=== PATIENT | female | born 1960 ===

== ENCOUNTER 2022-02-05 16:04 | Inpatient (IN) | payer OTHER ==
--- NOTE | 2022-02-05 17:31 | ED ---
Psych HPI - General Chief Complaint: Psychiatric Symptoms Stated Complaint: Mental Health Time Seen by Provider: 02/05/22 17:16 Source: patient Mode of arrival: ambulatory - History of Present Illness Initial Comments: This 61-year-old female presents with complaints of having some auditory and visual hallucinations over the past week. She states that she started 2 new medications of Zoloft and trazodone 2 weeks ago. She also states that she feels weak and has a shuffling gait. She feels confused mentally at times. She's never been on Zoloft but has been on trazodone in the past. She states that it feels like her legs will give out at times as well. She apparently had a similar incident a couple of years ago and was hospitalized psychiatrically in [place] and her symptoms resolved. She states that she cannot work currently due to her symptomatology. Her states that he is very worried about leaving her at home and wants her checked out psychiatrically. She denies any fevers, chills, shortness breath, chest pain, or abdominal pain. She does have a history of bipolar disorder, depression, anxiety. No other complaints or modifying factors. She denies any alcohol use. She does utilize marijuana at times but denies any other drug use. She does state that she feels very shaky and weak to the point where she has fallen several times. She also complains of some pain in her her bilateral flanks but denies any injury to this area. She denies any urinary frequency, urgency, or dysuria. - Related Data Home Medications Medication Instructions Recorded Confirmed Divalproex Sodium [Divalproex 1,000 mg PO HS 02/05/22 02/05/22 Sodium ER] Divalproex Sodium [Divalproex 500 mg PO DAILY 02/05/22 02/05/22 Sodium ER] Escitalopram [Lexapro] 5 mg PO DAILY 02/05/22 02/05/22 Gabapentin 800 mg PO BID 02/05/22 02/05/22 Levothyroxine Sodium 150 mcg PO DAILY 02/05/22 02/05/22 OLANZapine ODT [ZyPREXA ZYDIS] 5 mg PO BID 02/05/22 02/05/22 QUEtiapine [SEROquel] 400 mg PO DIRECTED 02/05/22 02/05/22 traZODone HCL [Desyrel] 100 mg PO HS 02/05/22 02/05/22 Allergies Allergy/AdvReac Type Severity Reaction Status Date / Time No Known Allergies Allergy Verified 02/05/22 19:15 Review of Systems ROS Statement: Those systems with pertinent positive or pertinent negative responses have been documented in the HPI. ROS Other: All systems not noted in ROS Statement are negative. Past Medical History Past Medical History: Myocardial Infarction ([place]), Thyroid Disorder History of Any Multi-Drug Resistant Organisms: None Reported Past Surgical History: Back Surgery, Heart Catheterization With Stent Past Psychological History: Anxiety, Bipolar, Depression Smoking Status: Current every day smoker Past Alcohol Use History: None Reported Past Drug Use History: Marijuana General Exam - General Exam Comments Initial Comments: GENERAL: The patient is well nourished and well hydrated. VITAL SIGNS: Heart rate, blood pressure, respiratory rate reviewed as recorded in nurse's notes. EYES: Pupils are round and reactive. Extraocular movements are intact. No conjunctival / lid redness or swelling. ENT: No external evidence of injury, swelling, or ecchymosis. Airway is patent. Throat is clear. NECK: Nontender. No swelling or evidence of injury. No subcutaneous emphysema. Trachea is midline. No thyroid mass. HEART: Regular rate and rhythm. Good peripheral pulses. LUNGS/CHEST: Breath sounds clear and equal bilaterally. No rales, rhonchi, or wheezes. No ecchymosis, subcutaneous emphysema, or tenderness. ABDOMEN: Abdomen soft without tenderness. No palpable masses or organomegaly. No peritoneal signs. No abdominal wall swelling or ecchymosis. EXTREMITIES: No extremity tenderness. Normal muscle tone and function. No thoracolumbar tenderness. NEUROLOGIC: Sensation is grossly intact. Cranial nerve exam reveals face is symmetrical, tongue is midline, speech is clear. Mild tremor noted bilateral upper extremities. Ambulatory with shuffle gait. SKIN: No abrasions or ecchymosis is noted. No induration or masses noted. PSYCHIATRIC: Alert and oriented. Appropriate behavior and judgment. Limitations: no limitations Course Vital Signs 02/05/22 16:37 Temperature 98.1 F Pulse Rate 68 Respiratory 16 Rate Blood Pressure 103/57 O2 Sat by Pulse 96 Oximetry Medical Decision Making - Medical Decision Making The patient was seen and examined. All diagnostics are reviewed. IV is estab lished and patient is hydrated. Urinalysis does show evidence of infection. Laboratories otherwise essentially within normal limits. IV Rocephin is administered. His not felt as though patient is medically cleared for psyche she does have urinary infection. She is also having some flank pain and the possibility of pyelonephritis is plausible. It is felt as though she benefit from IV antibiotics and hydration and see if her symptomatology doesn't improve. Patient and are agreeable with this plan. Case is discussed with Dr. Cook from internal medicine and he is agreeable with admission with psych to consult. Patient also was given Toradol for pain. - Lab Data Result diagrams: 02/05/22 17:47 02/05/22 17:47 Lab Results 02/05/22 02/05/22 02/05/22 Range/Units 17:47 17:47 17:47 WBC 6.7 (3.8-10.6) k/uL RBC 4.31 (3.80-5.40) m/uL Hgb 14.2 (11.4-16.0) gm/dL Hct 41.8 (34.0-46.0) % MCV 97.2 (80.0-100.0) fL MCH 33.1 (25.0-35.0) pg MCHC 34.1 (31.0-37.0) g/dL RDW 14.1 (11.5-15.5) % Plt Count 156 (150-450) k/uL MPV 9.1 Neutrophils % 53 % Lymphocytes % 31 % Monocytes % 13 % Eosinophils % 2 % Basophils % 0 % Neutrophils # 3.6 (1.3-7.7) k/uL Lymphocytes # 2.1 (1.0-4.8) k/uL Monocytes # 0.8 (0-1.0) k/uL Eosinophils # 0.1 (0-0.7) k/uL Basophils # 0.0 (0-0.2) k/uL Manual Slide Review Performed RBC Morphology Normal Sodium 134 L (137-145) mmol/L Potassium 4.5 (3.5-5.1) mmol/L Chloride 99 (98-107) mmol/L Carbon Dioxide 26 (22-30) mmol/L Anion Gap 9 mmol/L BUN 12 (7-17) mg/dL Creatinine 0.63 (0.52-1.04) mg/dL Est GFR (CKD-EPI)AfAm >90 (>60 ml/min/1.73 sqM) Est GFR (CKD-EPI)NonAf >90 (>60 ml/min/1.73 sqM) Glucose 91 (74-99) mg/dL Calcium 8.7 (8.4-10.2) mg/dL Total Bilirubin 0.9 (0.2-1.3) mg/dL AST 57 H (14-36) U/L ALT 18 (4-34) U/L Alkaline Phosphatase 45 (38-126) U/L Total Protein 6.7 (6.3-8.2) g/dL Albumin 4.0 (3.5-5.0) g/dL Urine Color Yellow Urine Appearance Clear (Clear) Urine pH 6.5 (5.0-8.0) Ur Specific [place] 1.020 (1.001-1.035) Urine Protein Trace H (Negative) Urine Glucose (UA) Negative (Negative) Urine Ketones 1+ H (Negative) Urine Blood Small H (Negative) Urine Nitrite Negative (Negative) Urine Bilirubin Negative (Negative) Urine Urobilinogen 3.0 (<2.0) mg/dL Ur Leukocyte Esterase Large H (Negative) Urine RBC 6 H (0-5) /hpf Urine WBC 41 H (0-5) /hpf Ur Squamous Epith Cells 1 (0-4) /hpf Ur Transition Epith Cell <1 (0-1) /hpf Urine Bacteria Rare H (None) /hpf Hyaline Casts 4 H (0-2) /lpf Urine Mucus Rare H (None) /hpf Serum Alcohol <10 mg/dL Disposition Clinical Impression: Urinary tract infection, Pyelonephritis, Hallucinations, History of bipolar disorder, Weakness Disposition: ADMITTED IP TO THIS HOSP Condition: Fair Is patient prescribed a controlled substance at d/c from ED?: No Time of Disposition: 19:48 Decision Date: 02/05/22 Decision Time: 19:53
[2022-02-05 18:22] LABS: Basophils % (A) 0 %; Eosinophils # (A) 0.1 k/uL (0-0.7); Eosinophils % (A) 2 %; HCT 41.8 % (34.0-46.0); HGB 14.2 gm/dL (11.4-16.0); Lymphocytes # (A) 2.1 k/uL (1.0-4.8); Lymphocytes % (A) 31 %; MCH 33.1 pg (25.0-35.0); MCHC 34.1 g/dL (31.0-37.0); MCV 97.2 fL (80.0-100.0); Mean Platelet Volume 9.1; Monocytes # (A) 0.8 k/uL (0-1.0); Monocytes % (A) 13 %; Neutrophils # (A) 3.6 k/uL (1.3-7.7); Neutrophils % (A) 53 %; RBC 4.31 m/uL (3.80-5.40); RDW 14.1 % (11.5-15.5); WBC 6.7 k/uL (3.8-10.6)
[2022-02-05 18:37] LABS: Appearance,Urine Clear (Clear); Bacteria,Urine Rare /hpf; Bilirubin,Urine Negative (Negative); Blood,Urine Small (Negative); Color,Urine Yellow; Glucose,Urine (UA) Negative (Negative); Hyaline Casts,Urine 4 /lpf (0-2); Ketones,Urine 1+ (Negative); Leukocyte Esterase,Urine Large (Negative); Mucus,Urine Rare /hpf; Nitrite,Urine Negative (Negative); PH, Urine 6.5 (5.0-8.0); Protein,Urine Trace (Negative); RBC,Urine 6 /hpf (0-5); Squamous Epithelial Cell,Urine 1 /hpf (0-4); Transitional Epi Cells,Urine <1 /hpf (0-1); WBC,Urine 41 /hpf (0-5)
[2022-02-05 18:46] LABS: ALT 18 U/L (4-34); AST 57 U/L (14-36); African American GFR (CKD) >90 (>60 ml/min/1.73 sqM); Alcohol <10 mg/dL; Alkaline Phosphatase 45 U/L (38-126); Anion Gap 9 mmol/L; Blood Urea Nitrogen 12 mg/dL (7-17); Calcium 8.7 mg/dL (8.4-10.2); Carbon Dioxide 26 mmol/L (22-30); Chloride 99 mmol/L (98-107); Glucose 91 mg/dL (74-99); Non-African American GFR(CKD) >90 (>60 ml/min/1.73 sqM); Sodium 134 mmol/L (137-145); Total Bilirubin 0.9 mg/dL (0.2-1.3); Total Protein 6.7 g/dL (6.3-8.2)
[2022-02-05 18:47] LABS: Potassium 4.5 mmol/L (3.5-5.1)
[2022-02-05 19:02] LABS: Platelet Count 156 k/uL (150-450)
[2022-02-05 19:03] LABS: RBC Morphology Normal
[2022-02-05] MEDS ORDERED: SODIUM CHLORIDE 0.9% 1,000 ML IV STA ×2 (19:41)
[2022-02-05] MEDS ORDERED: KETOROLAC 15 MG/ML 1 ML VIAL IVP STA (19:47)
[2022-02-05] MEDS ORDERED: MORPHINE SULFATE 2 MG/ML SYRINGE IV PRN (19:53)
[2022-02-05] MEDS ORDERED: NALOXONE 0.4 MG/ML 1 ML VIAL IV PRN (19:53)
[2022-02-05] MEDS ORDERED: ONDANSETRON 4 MG/2 ML VIAL IVP PRN (19:53)
[2022-02-05] MEDS ORDERED: QUEtiapine 400 MG TAB PO SCH (20:00)
[2022-02-05 20:14] LABS: Amphetamine Screen,Urine Not Detected (NotDetected); Barbiturate Screen,Urine Not Detected (NotDetected); Benzodiazepines Screen,Urine Not Detected (NotDetected); Cocaine Screen,Urine Not Detected (NotDetected); Methadone Screen, Urine Not Detected (NotDetected); Opiate Screen,Urine Not Detected (NotDetected); Oxycodone Screen, Urine Not Detected (NotDetected); Phencyclidine Screen,Urine Not Detected (NotDetected); Tricyclic Antidepressant,Urine Not Detected (NotDetected); Urn Cannabinoid Scrn Detected (NotDetected)
[2022-02-05] MEDS: GABAPENTIN 400 MG CAP PO SCH (22:32)
[2022-02-06] MEDS: DIVALPROEX ER 500 MG TAB.ER.24H PO SCH ×2 (08:09→20:44)
[2022-02-06] MEDS: traZODone HCL 100 MG TAB PO SCH ×2 (08:11→20:43)
[2022-02-06] MEDS: OLANZapine ODT 5 MG TAB PO SCH ×3 (08:11→20:43)
[2022-02-06] MEDS: HEPARIN SODIUM,PORCINE/PF 5,000 UNIT/0.5 ML SYRINGE SQ SCH ×2 (08:26→20:44)
[2022-02-06] MEDS: GABAPENTIN 400 MG CAP PO SCH ×2 (08:26→20:43)
[2022-02-06] MEDS: LEVOTHYROXINE 75 MCG TAB PO SCH (08:26)
[2022-02-06] MEDS: PANTOPRAZOLE 40 MG TABLET PO SCH (08:27)
[2022-02-06] MEDS: ACETAMINOPHEN TAB 325 MG TAB PO PRN (08:27)
[2022-02-06] MEDS ORDERED: ENOXAPARIN 40 MG/0.4 ML SYRINGE SQ SCH (09:00)
[2022-02-06] MEDS ORDERED: DIVALPROEX ER 500 MG TAB.ER.24H PO SCH (09:00)
[2022-02-06] MEDS ORDERED: ESCITALOPRAM 5 MG TAB PO SCH (09:00)
--- NOTE | 2022-02-06 09:03 | US ---
EXAMINATION TYPE: US renals and bladder DATE OF EXAM: 02/06/2022 COMPARISON: NONE CLINICAL HISTORY: Flank pain, suspected UTI. Inpatient. EXAM MEASUREMENTS: Right Kidney: 9.7 x 4.3 x 4.3 cm Left Kidney: 9.1 x 4.1 x 5.1 cm Right Kidney: No hydronephrosis or masses seen Left Kidney: No hydronephrosis or masses seen Bladder: Nondistended Bilateral Jets not seen There is no evidence for hydronephrosis at this point in time. No nephrolithiasis is seen. No shree s are identified on images saved. The urinary bladder is not greatly distended. Bilateral ureteral jets are not seen. IMPRESSION: No hydronephrosis seen bilaterally.
--- NOTE | 2022-02-06 09:17 | P.HPIM ---
History of Present Illness This is a pleasant 61 years old female with past medical history of anxiety, bipolar, coronary artery disease status post stent, nicotine dependence Presents because of visual and auditory hallucinations, she was recently prescribed Zoloft and trazodone Patient presents because she was feeling shaky, losing her mind and fell at home yesterday without syncope and no reported trauma or head injury, she got up right away and worked fine. In the emergency room she was suspected to have UTI, she was complaining of from flank pain She denies any dysuria or urgency or discomfort but she complains from diarrhea twice a day for the last couple days, no abdominal pain or vomiting. No current headache or dizziness, no weakness or numbness. No chest pain or dyspnea or coughing. She wants to see her PCP Nevaeh Nagy about 2 weeks ago and asked her to change her Seroquel and to something else, she put her on Zoloft and after a week she started feeling better, currently she is only on Zoloft. She smokes about 1 pack per day and she was counseled to quit and she agrees but she declines nicotine patch. 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 HEENT: No recent visual problems or hearing problems. Denied any sore throat. CARDIOVASCULAR: No orthopnea, PND, no palpitations, no syncope. PULMONARY: No shortness of breath, no cough, no hemoptysis. GASTROINTESTINAL: No diarrhea, no nausea, no vomiting, no abdominal pain. Normoactive bowel sounds. NEUROLOGICAL: No headaches, no weakness, no numbness. HEMATOLOGICAL: Denies any bleeding or petechiae. GENITOURINARY: Denies any burning micturition, frequency, or urgency. MUSCULOSKELETAL/RHEUMATOLOGICAL: Denies any joint pain, swelling, or any muscle pain. ENDOCRINE: Denies any polyuria or polydipsia. Past Medical History Past Medical History: Myocardial Infarction ([place]), Thyroid Disorder History of Any Multi-Drug Resistant Organisms: None Reported Past Surgical History: Back Surgery, Heart Catheterization With Stent Past Psychological History: Anxiety, Bipolar, Depression Smoking Status: Current every day smoker Past Alcohol Use History: None Reported Past Drug Use History: Marijuana Medications and Allergies Home Medications Medication Instructions Recorded Confirmed Type Divalproex Sodium [Divalproex 1,000 mg PO HS 02/05/22 02/05/22 History Sodium ER] Divalproex Sodium [Divalproex 500 mg PO DAILY 02/05/22 02/05/22 History Sodium ER] Escitalopram [Lexapro] 5 mg PO DAILY 02/05/22 02/05/22 History Gabapentin 800 mg PO BID 02/05/22 02/05/22 History Levothyroxine Sodium 150 mcg PO DAILY 02/05/22 02/05/22 History OLANZapine ODT [ZyPREXA ZYDIS] 5 mg PO BID 02/05/22 02/05/22 History QUEtiapine [SEROquel] 400 mg PO DIRECTED 02/05/22 02/05/22 History traZODone HCL [Desyrel] 100 mg PO HS 02/05/22 02/05/22 History Allergies Allergy/AdvReac Type Severity Reaction Status Date / Time No Known Allergies Allergy Verified 02/05/22 19:15 Physical Exam Vitals: Vital Signs Temp Pulse Resp BP Pulse Ox 02/05/22 16:37 98.1 F 68 16 103/57 96 Intake and Output 02/05/22 02/05/22 02/06/22 14:59 22:59 06:59 Other: Weight 81.647 kg GENERAL: The patient is alert and oriented x3, not in any acute distress. Well developed, well nourished. HEENT: Pupils are round and equally reacting to light. EOMI. No scleral icterus. No conjunctival pallor. Normocephalic, atraumatic. No pharyngeal erythema. No thyromegaly. CARDIOVASCULAR: S1 and S2 present. No murmurs, rubs, or gallops. PULMONARY: Chest is clear to auscultation, no wheezing or crackles. ABDOMEN: Soft, nontender, nondistended, normoactive bowel sounds. No palpable organomegaly. MUSCULOSKELETAL: No joint swelling or deformity. EXTREMITIES: No cyanosis, clubbing, or pedal edema. NEUROLOGICAL: Gross neurological examination did not reveal any focal deficits. SKIN: No rashes. no petechiae. Results CBC & Chem 7: 02/05/22 17:47 02/05/22 17:47 Labs: Abnormal Lab Results - Last 24 Hours (Table) 02/05/22 02/05/22 Range/Units 17:47 17:47 Sodium 134 L (137-145) mmol/L AST 57 H (14-36) U/L Urine Protein Trace H (Negative) Urine Ketones 1+ H (Negative) Urine Blood Small H (Negative) Ur Leukocyte Esterase Large H (Negative) Urine RBC 6 H (0-5) /hpf Urine WBC 41 H (0-5) /hpf Urine Bacteria Rare H (None) /hpf Hyaline Casts 4 H (0-2) /lpf Urine Mucus Rare H (None) /hpf U Marijuana (THC) Screen Detected H (NotDetected) Assessment and Plan Assessment: Possible acute urinary tract infection, with flank pain Visual and auditory hallucinations in view of psych on this History of coronary artery disease Nicotine dependence Plan: This pleasant 61 years old female who presents with UTI and hallucinations Continue with ceftriaxone follow-up urine culture. Repeat urine analysis as the suspicion for UTI is not that strong as patient is asymptomatic with no fever or leukocytosis. Bladder scan is only 30 mL and renal ultrasound is negative Psych consult Labs and medication were reviewed.. Continue same treatment. Continue with symptomatic treatment. Resume home medication. Monitor lytes and vitals. DVT and GI prophylaxis. Further recommendations as per clinical course of the patient DVT prophylaxis: Subcutaneous heparin GI Prophylaxis: pi PT/OT: Pending
[2022-02-06 10:47] LABS: Appearance,Urine Clear (Clear); Bilirubin,Urine Negative (Negative); Blood,Urine Moderate (Negative); Color,Urine Yellow; Glucose,Urine (UA) Negative (Negative); Ketones,Urine Negative (Negative); Leukocyte Esterase,Urine Large (Negative); Mucus,Urine Rare /hpf; Nitrite,Urine Negative (Negative); PH, Urine 6.5 (5.0-8.0); Protein,Urine Trace (Negative); RBC,Urine 6 /hpf (0-5); Specific Gravity,Urine 1.014 (1.001-1.035); Squamous Epithelial Cell,Urine <1 /hpf (0-4); WBC,Urine 77 /hpf (0-5)
--- NOTE | 2022-02-06 14:25 | P.CN ---
Psychiatric Consult - . Consult date: 02/06/22 Consult:: 02/06/22 14:25 IDENTIFYING DATA: This patient is a , employed, 21-year-old female with a significant history of bipolar disorder and anxiety who presented to the hospital on 02/05/2022 with chief complaint of auditory and visual hallucinations. HISTORY OF PRESENT ILLNESS: The patient presented to the hospital on 02/05/2022 with a chief complaint of auditory and visual hallucinations. The patient reports that these hallucinations started over the last 2 weeks. 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 She reports that these auditory hallucinations are very brief and occur randomly throughout the day. She states that she would hear in occasional whisper however denies any command type hallucinations or persecutory hallucinations. She reports that the visual hallucinations when the form of flashing lights however has not expressed any auditory or visual hallucinations over the last 24 hours. In regards to mood symptoms, patient reports that she was receiving 5 hours of sleep per night over the last 2 weeks. She denies any racing thoughts, mood lability, or grandiosity. She is currently vehemently denying any suicidal or homicidal ideation, intention, and/or plan. She denies any issues regarding her appetite and denies any anhedonia, hopelessness, or helplessness. The patient reports that she was on a regimen of Depakote, Lexapro, Seroquel, trazodone, and Zyprexa. She states that she was undergoing some medication changes. The patient does report that she has been having some difficulty with memory. Currently, she is alert and oriented to person and place only. She mistakenly states that the year is 2006 and then later stated "2007, 2008," and was finally corrected and informed that it is 2021. Although the patient did test positive for urinary tract infection, she denies any dysuria, discharge. PAST PSYCHIATRIC HISTORY: Patient has a history of bipolar disorder. Patient's home medication regimen includes Depakote, Lexapro, gabapentin, Zyprexa, Seroquel, and trazodone. She reports a previous psychiatric hospitalization years ago. She denies any outpatient psychiatric follow-up. She reports that she follows up with a neurologist. Patient denies any history of suicide attempts in the past. PAST MEDICAL HISTORY: Past Medical History: Myocardial Infarction ([place]), Thyroid Disorder History of Any Multi-Drug Resistant Organisms: None Reported Past Surgical History: Back Surgery, Heart Catheterization With Stent Past Psychological History: Anxiety, Bipolar, Depression Smoking Status: Current every day smoker Past Alcohol Use History: None Reported Past Drug Use History: Marijuana ALLERGIES: NO KNOWN DRUG ALLERGIES CHEMICAL DEPENDENCY HISTORY: Patient reports occasional marijuana use. She reports 1 pack per day tobacco use. She reports no alcohol use or illicit drug use. FAMILY PSYCHIATRIC/SUBSTANCE USE HISTORY: Denies SOCIAL HISTORY: Patient is currently and is employed. 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 MENTAL STATUS EXAM: General Appearance: Patient appears to be stated age is alert, pleasant, and cooperative. Patient appears to have a slightly disheveled hygiene and grooming wearing hospital gown with fair eye contact. Behavior: Patient is calmly lying in bed without any agitated behavior. Speech: Patient's speech is fluent and nonpressured. The patient does have some word finding difficulties. Mood/Affect: Patient reports their mood is "a little anxious", affect is congruent and nervous Suicidality/Homicidality: Patient denies any suicidal or homicidal ideation, intention, and/or plan. Perceptions: Patient reports auditory and visual hallucinations. Though content/process: There is no evidence of any delusional thought content and thought process is linear and goal-directed. Memory and concentration: AOX2 -she is not oriented to date, concentration appears to be grossly intact. Judgment and insight: poor IMPRESSIONS: Acute psychosis, likely secondary to urinary tract infection Bipolar disorder, unspecified Cannabis use disorder PLAN: -Continue your medical management -At this time patient DOES NOT meet criteria for inpatient psychiatric admission. The patient reports that her hallucinations have stopped over the last 24 hours. She is not presenting with imminent risk of harm to self or others. -Will order ammonia level -Delirium precautions recommended with patient including - avoiding use of narcotics and NECK FITTER sedatives, limit anticholinergic medications when possible, frequent re-orientation, minimize use of restraints, open window shades during the day and close them at night -Would recommend the following medication changes/additions: We will decrease Depakote to 1000 mg by mouth at bedtime as her Depakote level is slightly supratherapeutic Continue gabapentin 600 mg by mouth twice a day Discontinue Seroquel and Lexapro to decrease polypharmacy Continue Zyprexa 5 mg by mouth twice a day for acute psychosis -Will continue to follow along to monitor medication changes and to assess for any worsening psychotic or mood symptoms. 02/06/22 14:25
[2022-02-07] MEDS: LEVOTHYROXINE 75 MCG TAB PO SCH (06:08)
[2022-02-07] MEDS: PANTOPRAZOLE 40 MG TABLET PO SCH (08:26)
[2022-02-07] MEDS: HEPARIN SODIUM,PORCINE/PF 5,000 UNIT/0.5 ML SYRINGE SQ SCH ×2 (08:26→20:59)
[2022-02-07] MEDS: GABAPENTIN 400 MG CAP PO SCH ×2 (08:26→20:59)
[2022-02-07] MEDS: OLANZapine ODT 5 MG TAB PO SCH ×2 (08:26→20:59)
--- NOTE | 2022-02-07 13:37 | P.PN ---
Progress Note - Text Progress Note Date: 02/07/22 Interval History: Patient was seen resting in bed and was agreeable to speak with fha underwriter in her room. Currently, the patient is not reporting any suicidal or homicidal ideation, intention, and/or plan. She is denying any auditory or visual hallucinations. She reports no paranoia or other delusions. The patient has been adherent with her medications and is not reporting any significant side effects at this time. Today, she is alert and oriented in all spheres. She st ates that she has not experienced any hallucinations over the past 48 hours. She reports that she is feeling overall better. Mental Status Exam: General Appearance: Patient appears to be stated age is alert, directable, and cooperative. Behavior: Patient is calmly seated without any agitated behavior. Speech: Patient's speech is fluent and nonpressured. Mood/Affect: Mood is improving mildly, affect is congruent and euthymic Suicidality/Homicidality: Patient denies having any suicidal or homicidal ideation intent or plan. Perceptions: Patient denies any visual hallucinations and denies any auditory hallucinations Though content/process: There is no evidence of any delusional thought content and thought process is linear and goal-directed. Memory and concentration: AOX3, grossly intact for the purposes of this session Judgment and insight: Improved Vital Signs Temp 97.7 F 02/07/22 07:49 Pulse 54 L 02/07/22 08:00 Resp 18 02/07/22 08:00 BP 129/77 02/07/22 07:49 Pulse Ox 99 02/07/22 07:49 FiO2 Intake & Output 02/06/22 02/07/22 02/07/22 18:59 06:59 18:59 Intake Total 200 Balance 200 Weight 81.647 kg Intake: Intake, IV Titration 200 Amount Sodium Chloride 0.9% 1, 200 000 ml @ 100 mls/hr IV . Q10H STA Rx#:[id number] Other: Voiding Method Toilet Toilet # Voids 0 Laboratory Results - Last 24 Hours 02/06/22 15:02 Ammonia 10 Assessment Acute psychosis, likely secondary to urinary tract infection Bipolar disorder, unspecified Cannabis use disorder Plan: -Continue your medical management -At this time patient DOES NOT meet criteria for inpatient psychiatric admission. The patient is currently not reporting any overt paranoia or other delusions. She denies any psychotic symptoms today. She is not presenting with any imminent risk of harm to self or others. -Ammonia level reviewed and within normal limits -Delirium precautions recommended with patient including - avoiding use of narcotics and MDM SR sedatives, limit anticholinergic medications when possible, frequent re-orientation, minimize use of restraints, open window shades during the day and close them at night -Would recommend the following medication changes/additions: Continue Depakote 1000 mg by mouth at bedtime - Recheck of depakote level in 2 days. Continue gabapentin 600 mg by mouth twice a day Continue Zyprexa 5 mg by mouth twice a day for acute psychosis -Psychiatry will sign off at this time. Recommend outpatient psychiatric follow-up. Please call us with any questions or reconsult us if necessary.
[2022-02-07] MEDS: ACETAMINOPHEN TAB 325 MG TAB PO PRN (16:30)
[2022-02-07] MEDS ORDERED: ASPIRIN 81 MG PO STA (20:47)
--- NOTE | 2022-02-07 20:48 | P.PN ---
Subjective This is a pleasant 50 years old female with past medical history of Asthma, Fibromyalgia, GERD/Reflux, Osteoarthritis , previous gastric sleeve, SLE, igor carpal tunnel disease, chronic back pain, chronic degenerative disc disease, Anxiety, Depression, Current every day smoker pt states for the past 4 days she has been feeling sob and feeling tired and not herself and general weakness and a out of it so she decided to come to the hospital yesterday, patient also recently had a wisdom tooth extracted and she was placed on ampicillin about 3 days ago but she developed an ALLERGIC reaction and associated Z-Mj. Also she has been having chest pain on and off for several days and weeks, she is following up with floral department specialist and supposed to get stress test with Dr. Deleon next week, earlier 1 hour she had some very mild chest pain in the left upper area, nonradiating, nonspecific gas resolved now, but she stated she is having this chest pain on and off. She is heavy smoker about 2 packs per day and she is trying to quit, last cigarette was 2 days ago but then her smoke 1 yesterday and she smoked with him and she is still trying to quit. She denies abdominal pain or vomiting or diarrhea. No urinary complaints. Actually she complains from constipation because of her pain medication She has chronic back and neck pain and previous surgeries. She has Dilaudid nerve stimulator in her right side of abdominal wall, also she is taking Percocet 7.5 mg 3 times a day she also complaining of from right leg pain which is chronic. She is altering for her back pain, patient was counseled to avoid NSAIDs Denies alcohol or illicit drugs. EKG reviewed in the paper chart showing normal sinus rhythm at [address]-T changes. QTC is 379. \ Risk of taking narcotics and EXPLAINED TO THE PATIENT including but not limited to respiratory depression, cardiac arrest and/or are explained for her and she verbalized understanding and acceptance, she still wants her narcotics but agrees to Percocet 3 times a day change to twice a day for now. patient states she was on oral Lasix 20 mg twice daily for 2 years because of chronic bilateral leg swelling, her legs are not swollen this time On admission patient was hypotensive 84/59, blood pressure improved after normal saline, currently blood pressure improved, afebrile. INR is unremarkable. BMP showing elevated elevated creatinine 2.2, compared to baseline of 1.0-1.4. Potassium high at 5.7, rest of BMP, liver enzymes is unremarkable. Carona virus is un acute cardiopulmonary process detected In the emergency room patient received Kayexalate, normal saline, Zofran and nicotine patch. 02/07/2022 Patient today awake and alert. She complains from persistent dysuria and increased frequency of urination, she is kept on ceftriaxone and urine culture are pending. No hydronephrosis on ultrasound. IV fluids were discontinued. Also psychiatrist evaluated the patient for her acute psychosis which is thought related to her UTI and adjusted medication. Valproic acid checked and was 117 which is both therapeutic with possible toxic effects. Patient today for the first time she complains from slurred speech and right-sided weakness going on for the last 2 weeks although on examination her speech looks close to normal, or normal. I checked strength in both upper and lower extremities and did not appreciate any weakness looks 5/5. However we are going to consult neurology service. Objective - Vital Signs Vital signs: Vital Signs Temp 97.7 F 02/07/22 07:49 Pulse 54 L 02/07/22 08:00 Resp 18 02/07/22 08:00 BP 129/77 02/07/22 07:49 Pulse Ox 99 02/07/22 07:49 FiO2 Intake & Output 02/06/22 02/07/22 02/07/22 18:59 06:59 18:59 Intake Total 200 Balance 200 Weight 81.647 kg Intake: Intake, IV Titration 200 Amount Sodium Chloride 0.9% 1, 200 000 ml @ 100 mls/hr IV . Q10H [facility] Rx#:[id number] Other: Voiding Method Toilet Toilet # Voids 0 - Exam GENERAL: The patient is alert and oriented x3, not in any acute distress. Well developed, well nourished. HEENT: Pupils are round and equally reacting to light. EOMI. No scleral icterus. No conjunctival pallor. Normocephalic, atraumatic. No pharyngeal erythema. No thyromegaly. CARDIOVASCULAR: S1 and S2 present. No murmurs, rubs, or gallops. PULMONARY: Chest is clear to auscultation, no wheezing or crackles. ABDOMEN: Soft, nontender, nondistended, normoactive bowel sounds. No palpable organomegaly. MUSCULOSKELETAL: No joint swelling or deformity. EXTREMITIES: No cyanosis, clubbing, or pedal edema. NEUROLOGICAL: Gross neurological examination did not reveal any focal deficits. SKIN: No rashes. no petechiae. - Labs CBC & Chem 7: 02/05/22 17:47 02/05/22 17:47 Labs: Microbiology - Last 24 Hours (Table) 02/06/22 07:50 Blood Culture - Preliminary Blood No Growth after 24 hours Assessment and Plan Assessment: acute urinary tract infection, with flank pain Visual and auditory hallucinations in view of psych on, related to acute psychosis secondary to UTI Possible slurred speech and weakness of the right side 2 weeks History of coronary artery disease Nicotine dependence Plan: This pleasant 61 years old female who presents with UTI and hallucinations Continue with ceftriaxone follow-up urine culture. Follow-up urine culture while continue with ceftriaxone Psych consult signed off the case Labs and medication were reviewed.. Continue same treatment. Continue with symptomatic treatment. Resume home medication. Monitor lytes and vitals. DVT and GI prophylaxis. Further recommendations as per clinical course of the patient DVT prophylaxis: Subcutaneous heparin GI Prophylaxis: pi PT/OT: Pending
[2022-02-07] MEDS: DIVALPROEX ER 500 MG TAB.ER.24H PO SCH (20:59)
[2022-02-07] MEDS: traZODone HCL 100 MG TAB PO SCH (20:59)
[2022-02-08] MEDS: LEVOTHYROXINE 75 MCG TAB PO SCH (05:50)
[2022-02-08] MEDS: GABAPENTIN 400 MG CAP PO SCH ×2 (07:35→20:49)
[2022-02-08] MEDS: HEPARIN SODIUM,PORCINE/PF 5,000 UNIT/0.5 ML SYRINGE SQ SCH ×2 (07:36→20:50)
[2022-02-08] MEDS: PANTOPRAZOLE 40 MG TABLET PO SCH (07:36)
[2022-02-08] MEDS: OLANZapine ODT 5 MG TAB PO SCH ×2 (07:37→21:17)
--- NOTE | 2022-02-08 11:31 | P.PN ---
Subjective This is a pleasant 50 years old female with past medical history of Asthma, Fibromyalgia, GERD/Reflux, Osteoarthritis , previous gastric sleeve, SLE, igor carpal tunnel disease, chronic back pain, chronic degenerative disc disease, Anxiety, Depression, Current every day smoker pt states for the past 4 days she has been feeling sob and feeling tired and not herself and general weakness and a out of it so she decided to come to the hospital yesterday, patient also recently had a wisdom tooth extracted and she was placed on ampicillin about 3 days ago but she developed an ALLERGIC reaction and associated Z-Mj. Also she has been having chest pain on and off for several days and weeks, she is following up with front desk manager and supposed to get stress test with Dr. Deleon next week, earlier 1 hour she had some very mild chest pain in the left upper area, nonradiating, nonspecific gas resolved now, but she stated she is having this chest pain on and off. She is heavy smoker about 2 packs per day and she is trying to quit, last cigarette was 2 days ago but then her smoke 1 yesterday and she smoked with him and she is still trying to quit. She denies abdominal pain or vomiting or diarrhea. No urinary complaints. Actually she complains from constipation because of her pain medication She has chronic back and neck pain and previous surgeries. She has Dilaudid nerve stimulator in her right side of abdominal wall, also she is taking Percocet 7.5 mg 3 times a day she also complaining of from right leg pain which is chronic. She is altering for her back pain, patient was counseled to avoid NSAIDs Denies alcohol or illicit drugs. EKG reviewed in the paper chart showing normal sinus rhythm at [address]-T changes. QTC is 379. \ Risk of taking narcotics and EXPLAINED TO THE PATIENT including but not limited to respiratory depression, cardiac arrest and/or are explained for her and she verbalized understanding and acceptance, she still wants her narcotics but agrees to Percocet 3 times a day change to twice a day for now. patient states she was on oral Lasix 20 mg twice daily for 2 years because of chronic bilateral leg swelling, her legs are not swollen this time On admission patient was hypotensive 84/59, blood pressure improved after normal saline, currently blood pressure improved, afebrile. INR is unremarkable. BMP showing elevated elevated creatinine 2.2, compared to baseline of 1.0-1.4. Potassium high at 5.7, rest of BMP, liver enzymes is unremarkable. Carona virus is un acute cardiopulmonary process detected In the emergency room patient received Kayexalate, normal saline, Zofran and nicotine patch. 02/07/2022 Patient today awake and alert. She complains from persistent dysuria and increased frequency of urination, she is kept on ceftriaxone and urine culture are pending. No hydronephrosis on ultrasound. IV fluids were discontinued. Also psychiatrist evaluated the patient for her acute psychosis which is thought related to her UTI and adjusted medication. Valproic acid checked and was 117 which is both therapeutic with possible toxic effects. Patient today for the first time she complains from slurred speech and right-sided weakness going on for the last 2 weeks although on examination her speech looks close to normal, or normal. I checked strength in both upper and lower extremities and did not appreciate any weakness looks 5/5. However we are going to consult neurology service. 02/08/2022 Patient looks more, comfortable today, she denies any dysuria but she still complaining of from increased frequency about a time last night, we going to rec heck her bladder scan again She states that her slurred speech from yesterday and right-sided weakness significantly improved and only mildly weak in the right upper extremity she denies any specific complaints, hemodynamics and vitals are stable. She remains on ceftriaxone, urine culture is pending She states that her gabapentin help her come down. Patient remains on Valproic acid. Check level again. Last time was 117 Objective - Vital Signs Vital signs: Vital Signs Temp 98.2 F 02/08/22 08:00 Pulse 53 L 02/08/22 08:00 Resp 14 02/08/22 08:00 BP 133/74 02/08/22 08:00 Pulse Ox 97 02/08/22 08:00 FiO2 Intake & Output 02/07/22 02/08/22 02/08/22 18:59 06:59 18:59 Intake Total 50 Balance 50 Intake: Intake, IV Titration 50 Amount cefTRIAXone 1 gm In 50 Sodium Chloride 0.9% 50 ml @ 100 mls/hr IVPB Q24HR [facility] Rx#:[id number] Other: Voiding Method Toilet Toilet Toilet # Voids 2 # Bowel Movements 1 - Exam GENERAL: The patient is alert and oriented x3, not in any acute distress. Well developed, well nourished. HEENT: Pupils are round and equally reacting to light. EOMI. No scleral icterus. No conjunctival pallor. Normocephalic, atraumatic. No pharyngeal erythema. No thyromegaly. CARDIOVASCULAR: S1 and S2 present. No murmurs, rubs, or gallops. PULMONARY: Chest is clear to auscultation, no wheezing or crackles. ABDOMEN: Soft, nontender, nondistended, normoactive bowel sounds. No palpable organomegaly. MUSCULOSKELETAL: No joint swelling or deformity. EXTREMITIES: No cyanosis, clubbing, or pedal edema. NEUROLOGICAL: Gross neurological examination did not reveal any focal deficits. SKIN: No rashes. no petechiae. - Labs CBC & Chem 7: 02/05/22 17:47 02/05/22 17:47 Labs: Microbiology - Last 24 Hours (Table) 02/06/22 07:50 Blood Culture - Preliminary Blood No Growth after 48 hours 02/06/22 10:00 Urine Culture - Preliminary Urine,Voided Assessment and Plan Assessment: acute urinary tract infection, with flank pain Visual and auditory hallucinations in view of psych on, related to acute psychosis secondary to UTI Possible slurred speech and weakness of the right side 2 weeks History of coronary artery disease Nicotine dependence Plan: This pleasant 61 years old female who presents with UTI and hallucinations Follow-up urine culture while continue with ceftriaxone Continue with valproic acid and check level Consulting neurologist office Psych consult signed off the case Labs and medication were reviewed.. Continue same treatment. Continue with symptomatic treatment. Resume home medication. Monitor lytes and vitals. DVT and GI prophylaxis. Further recommendations as per clinical course of the patient DVT prophylaxis: Subcutaneous heparin GI Prophylaxis: pi PT/OT: Pending
--- NOTE | 2022-02-08 15:55 | P.CNNES ---
History of Present Illness Consult date: 02/08/22 Requesting physician: Silvestre Cook Reason for Consult: slurred speech and weakness History of Present Illness: Patient is a 61-year-old female came to the hospital 02/05/2022 at 4:04 PM for evaluation of auditory and visual hallucinations over the past week. As per ED records, it appears patient started two new medications, including Zoloft and trazodone 2 weeks ago. She also states that she feels weak and has a shuffling gait. Patient at present tells me that she came because her back started hurting pointing to the bilateral lower back region. Denies any radiation to the legs. She says that she felt it was a kidney infection. Then she said her pain is like "mom has both sides in the middle". While giving history, patient all of a sudden started rambling, speaking word salad, flight of ideas. There was some paraphasic errors noted. She then informed me that she came because "not able to talk right". She states that she has speech problem going on 2 weeks ago. Patient admits to having headache 6/10 involving frontal region with nausea. She at first denies any numbness or tingling although later states that she does have numbness and tingling in the feet and hands for last 30 years, she says she "always have weakness in the legs". On asking about any paralysis, states "I had paralysis 2-1/2 weeks ago". Visual symptoms. Patient's blood test shows normal CBC, sodium 134 potassium 4.5 normal renal functions. AST 57, ALT 18. Ammonia is normal 10. UA shows large amount of leukocyte Estrace, rare bacteria and 41 WBC. Urine drug screen positive for marijuana. Depakote level is elevated 117.3. Blood alcohol level negative. Patient currently started on ceftriaxone 1 g daily. Patient denies any history of hypertension or diabetes, or any seizure disorder. Patient does admit to having bipolar disorder. Patient's home medications include Lexapro 5 mg, Depakote 1000 mg at bedtime and 500 mg daily, levothyroxine 150 g daily, gabapentin 800 mg twice a day, trazodone 100 mg bedtime, Zyprexa 5 mg twice a day, Requip 0.25 mg at bedtime and vitamin D. Patient states she lives with her . Review of Systems Constitutional: Denies chills, Denies fever Ears, nose, mouth and throat: Reports headache, Denies sore throat Cardiovascular: Denies chest pain, Denies shortness of breath Respiratory: Denies cough Gastrointestinal: Denies abdominal pain, Denies diarrhea, Denies nausea, Denies vomiting Genitourinary: Denies dysuria, Denies hematuria Musculoskeletal: Denies myalgias Integumentary: Denies pruritus, Denies rash Neurological: Reports as per HPI Psychiatric: Reports confusion, Reports difficulty concentrating, Reports memory loss, Denies suicidal ideation Endocrine: Reports weight change Past Medical History Past Medical History: Coronary Artery Disease (CAD), Myocardial Infarction (ID), Thyroid Disorder Additional Past Medical History / Comment(s): RLS, chronic low back pain, UTIs, hypothyroid Last Myocardial Infarction Date:: 2009 History of Any Multi-Drug Resistant Organisms: None Reported Past Surgical History: Back Surgery, Heart Catheterization With Stent, Tubal Ligation Additional Past Surgical History / Comment(s): 3 back surgeries/has hardware, D&C Past Anesthesia/Blood Transfusion Reactions: No Reported Reaction Date of Last Stent Placement:: 2009 at [facility] Smoking Status: Current every day smoker - Past Family History Father History Unknown: Yes Additional Family Medical History / Comment(s): Father left family when pt was an . Mother History Unknown: Yes Additional Family Medical History / Comment(s): Mother when pt was a . Medications and Allergies Home Medications Medication Instructions Recorded Confirmed Type Divalproex Sodium [Divalproex 1,000 mg PO HS 02/05/22 02/05/22 History Sodium ER] Divalproex Sodium [Divalproex 500 mg PO DAILY 02/05/22 02/05/22 History Sodium ER] Escitalopram [Lexapro] 5 mg PO DAILY 02/05/22 02/05/22 History Gabapentin 800 mg PO BID 02/05/22 02/05/22 History Levothyroxine Sodium 150 mcg PO DAILY 02/05/22 02/05/22 History OLANZapine ODT [ZyPREXA ZYDIS] 5 mg PO BID 02/05/22 02/05/22 History traZODone HCL [Desyrel] 100 mg PO HS 02/05/22 02/05/22 History Ergocalciferol [Vitamin D2 (1250 1,250 mcg PO WE 02/06/22 02/06/22 History Mcg = 04806 Iu)] rOPINIRole HCL [Requip] 0.25 mg PO HS 02/06/22 02/06/22 History Allergies Allergy/AdvReac Type Severity Reaction Status Date / Time No Known Allergies Allergy Verified 02/05/22 19:15 Physical Examination - Vital Signs Vital Signs: Vital Signs Temp Pulse Resp BP Pulse Ox 02/08/22 08:00 98.2 F 53 L 14 133/74 97 02/08/22 07:37 60 18 02/08/22 01:36 98.1 F 60 18 132/83 95 02/07/22 20:00 62 18 02/07/22 19:03 97.7 F 62 18 139/83 97 02/07/22 14:00 97.2 F L 68 18 132/83 97 Intake and Output 02/07/22 02/08/22 02/08/22 22:59 06:59 14:59 Intake Total 50 Balance 50 Intake: Intake, IV Titration 50 Amount cefTRIAXone 1 gm In 50 Sodium Chloride 0.9% 50 ml @ 100 mls/hr IVPB Q24HR [facility] Rx#:[id number] Other: Voiding Method Toilet Toilet # Voids 2 # Bowel Movements 1 Patient is a late middle aged female, who appears slightly encephalopathic. Patient is alert awake. Patient appears quite confused. She states that it is January and the year is 200, then she said 2020, then she said , then 2021. She knows that she is in [facility] and that she is in a medical building. She states her date of is 08/09, then said 04/13/24, then said to 08/14/19. She states she is 64 years old. She knows name of the current president [place]. Speech is clear with no dysarthria. She would speak normally, then would have word salad, gibberish speech. She has flight of ideas. Patient out of context stated "I got my first sausage sandwich". She said "we are having security. I make sausage sometimes to eat. I felt kind of feeling weird". On asking about depression, patient admits to feeling depressed, but then she went on saying "lady down the street, she gave me bipolar; we had lunch together". Patient can name but has some paraphasic errors like seeing Nickels for knuckles, was able to tell the earlobe. When I showed her pen, patient states "finger wine fermenter". She would not name pen. She can repeat very well. Attention span, concentration and fund of knowledge is limited. On cranial nerve examination, pupils are equal, round and reacting to light, visual garcia are full on confrontation, with no neglect on double simultaneous depression. Extraocular muscles are intact with no nystagmus. Face is symmetric, tongue protrudes to the midline. Palatal elevation and sensation normal, hearing and shoulder shrug normal, facial sensation normal. On muscle strength testing, there is no pronator drift and the strength is normal in arms and legs distally and proximally, except hip flexion, which is 4+bilaterally. Ankle dorsiflexion are normal. Upper extremities normal. Deep tendon reflexes are symmetric biceps 1+, brachioradialis 1, knees 0, ankles 0 and plantars are flat bilaterally Sensory to touch is equal with no neglect on double simultaneous stimulation. Cerebellar function showed no ataxia for [id number] testing, although she was tremulous. Patient has myoclonic jerks of outstretched hands. Tone and bulk of muscles normal. Gait deferred.. On general examination, there is no carotid bruit or murmur, S1-S2 audible. Chest is clear on consultation. Abdomen is soft nontender. No organomegaly, bowel sounds present. Peripheral pulses are present. No edema. Results - Laboratory Findings CBC and BMP: 02/05/22 17:47 02/05/22 17:47 Abnormal Lab Findings: Abnormal Labs 02/05/22 02/05/22 02/06/22 17:47 17:47 10:00 Sodium 134 L AST 57 H Urine Protein Trace H Trace H Urine Ketones 1+ H Urine Blood Small H Moderate H Ur Leukocyte Esterase Large H Large H Urine RBC 6 H 6 H Urine WBC 41 H 77 H Urine Bacteria Rare H Hyaline Casts 4 H Urine Mucus Rare H Rare H U Marijuana (THC) Screen Detected H Assessment and Plan Assessment: * Altered mental status, acute delirium. Patient intermittently has word salad, flight of ideas, gibberish speech. Patient also has history of bipolar disorder, therefore acute sang is also a possibility. Psychiatry onboard. CVA less likely, as examination is otherwise nonfocal. Rule out Wernicke's encephalopathy. Patient denies alcoholism, but does have late loss and may have some nutritional deficiency. * Acute UTI, which may be contributing to delirium. * Cephalalgia, unclear cause, perhaps related to above * Depakote toxicity (level 117) * CAD * Bipolar disorder. Plan: * MRI brain with and without contrast to rule out CVA, other inflammatory process. * EEG * Start aspirin 81 mg daily. Patient has received aspirin loading dose 324 mg yesterday. * B12, Folate, B6, MMA, B1, TSH. * Agree with decreasing Depakote dose to 1000 mg daily. (Previously on 1500 mg daily). Ammonia is normal. * Neurology will follow. Thank you for the consult.
[2022-02-08] MEDS: THIAMINE 100 MG TAB PO SCH (17:22)
[2022-02-08] MEDS: traZODone HCL 100 MG TAB PO SCH (20:49)
[2022-02-08] MEDS: ACETAMINOPHEN TAB 325 MG TAB PO PRN (20:49)
[2022-02-08] MEDS: DIVALPROEX ER 500 MG TAB.ER.24H PO SCH (21:16)
[2022-02-09] MEDS: LEVOTHYROXINE 75 MCG TAB PO SCH (06:35)
--- NOTE | 2022-02-09 06:59 | XR ---
EXAMINATION TYPE: XR chest 1V DATE OF EXAM: 02/09/2022 6:17 AM COMPARISON: None TECHNIQUE: XR chest 1V Frontal view of the chest. CLINICAL INDICATION:Female, 61 years old with history of sob; FINDINGS: Lungs/Pleura: Bibasilar atelectasis. No evidence for pneumothorax pleural effusion or focal consolida tion. Pulmonary vascularity: Unremarkable. Heart/mediastinum: Cardiomediastinal silhouette is unremarkable. Musculoskeletal: No acute osseous pathology. IMPRESSION: Bibasilar atelectasis without acute cardiopulmonary disease/process.
[2022-02-09] MEDS: HEPARIN SODIUM,PORCINE/PF 5,000 UNIT/0.5 ML SYRINGE SQ SCH ×2 (08:04→20:56)
[2022-02-09] MEDS: PANTOPRAZOLE 40 MG TABLET PO SCH (08:04)
[2022-02-09] MEDS: GABAPENTIN 400 MG CAP PO SCH ×2 (08:04→20:55)
[2022-02-09] MEDS: OLANZapine ODT 5 MG TAB PO SCH ×2 (08:05→21:56)
[2022-02-09] MEDS: THIAMINE 100 MG TAB PO SCH (08:05)
[2022-02-09] MEDS: FOLIC ACID 1 MG TAB PO SCH (10:07)
[2022-02-09] MEDS: ACETAMINOPHEN TAB 325 MG TAB PO PRN ×2 (13:27→22:52)
--- NOTE | 2022-02-09 15:07 | CT ---
EXAMINATION TYPE: CT brain wo con DATE OF EXAM: 02/09/2022 COMPARISON: None HISTORY: Altered mental status. CT DLP: 1165.4 mGycm Automated exposure control for dose reduction was used. There is diffuse cerebral cortical atrophy. There is no mass effect or midline shift. No sign of intr acranial hemorrhage. There is more noticeable atrophy in the frontal and temporal lobes. The calvariu m is intact. Skull base is intact. There is normal aeration of the mastoids sinuses. There is mild le ft-sided posterior ethmoid sinusitis. IMPRESSION: Cerebral atrophy. No acute intracranial abnormality.
--- NOTE | 2022-02-09 15:16 | P.PN ---
Subjective Progress Note Date: 02/09/22 This is a pleasant 50-year-old female who presents with shortness of breath and generalized weakness, as well as auditory and visual hallucinations over the past week. She was also recently started on Zoloft and trazodone 2 weeks outpatient. She is a current smoker. She also presents with slurred speech and right-sided weakness is being evaluated by neurology. Chest x-ray this morning shows bibasilar atelectasis without acute cardiopulmonary disease. Is pending CT brain with and without contrast, EEG. Patient was started on aspirin. Depakote dose has been decreased. Urine culture is negative, antibiotics have been discontinued patient denies dysuria. TSH is low at 0.120, folate is low at 3.50. She continues to be lethargic, falling asleep during conversation. Review of Systems Constitutional: Reports fatigue denied any fever. Cardio vascular: denied any chest pain, palpitations Gastrointestinal: denied any nausea, vomiting, diarrhea Pulmonary: Denied any shortness of breath cough Neurologic denied any new focal deficits All inpatient medications were reviewed and appropriate changes in these medications as dictated in the interval history and assessment and plan. PHYSICAL EXAMINATION: GENERAL: The patient is alert and oriented x3, not in any acute distress. Lethargic. Well developed, well nourished. HEENT: Pupils are round and equally reacting to light. EOMI. No scleral icterus. No conjunctival pallor. Normocephalic, atraumatic. No pharyngeal erythema. No thyromegaly. CARDIOVASCULAR: S1 and S2 present. No murmurs, rubs, or gallops. PULMONARY: Chest is clear to auscultation, no wheezing or crackles. ABDOMEN: Soft, nontender, nondistended, normoactive bowel sounds. No palpable organomegaly. MUSCULOSKELETAL: No joint swelling or deformity. EXTREMITIES: No cyanosis, clubbing, or pedal edema. NEUROLOGICAL: Gross neurological examination did not reveal any focal deficits. Patient falling asleep during examination. SKIN: No rashes. Assessment and plan Assessment Altered mental status secondary to acute delirium with visual and auditory hallucinations which have improved History of bipolar disorder maintained on depakote Depakote toxicity Acute UTI ruled out, urine culture negative Cephalgia brain CT pending Depakote toxicity level of 117 Mild hyponatremia most likely from poor oral intake Coronary artery disease Folate deficiency Low TSH, pending T4 GI Prophylaxis DVT Prophylaxis Full Code Plan Pending brain CT Folate, Thiamine supplementation added Pending T4 Antibiotics discontinued no evidence for acute UTI patient is asymptomatic Pending further recommendations by neurology PT/OT recommending home on discharge Repeat BMP in AM The impression and plan of care has been dictated by Iqra Marshall, Nurse Practitioner as directed. Dr. Faheem MD I have performed a history and physical examination and medical decision making of this patient, discussed the same with the dictator, and agree with the dictators assessment and plan as written, documented as a scribe. Based on total visit time, I have performed more than 50% of this visit. Objective - Vital Signs Vital signs: Vital Signs Temp 98 F 02/09/22 02:07 Pulse 66 02/09/22 02:07 Resp 18 02/09/22 02:07 BP 116/66 02/09/22 02:07 Pulse Ox 97 02/09/22 02:07 FiO2 Intake & Output 02/08/22 02/09/22 02/09/22 18:59 06:59 18:59 Intake Total 50 Balance 50 Intake: Intake, IV Titration 50 Amount cefTRIAXone 1 gm In 50 Sodium Chloride 0.9% 50 ml @ 100 mls/hr IVPB Q24HR [facility] Rx#:[id number] Other: Voiding Method Toilet Toilet Toilet # Voids 1 - Labs CBC & Chem 7: 02/05/22 17:47 02/05/22 17:47 Labs: Abnormal Lab Results - Last 24 Hours (Table) 02/08/22 02/08/22 Range/Units 12:40 12:40 Folate 3.50 L (4.40-31.00) ng/mL TSH 0.120 L (0.465-4.680) mIU/L Microbiology - Last 24 Hours (Table) 02/06/22 10:00 Urine Culture - Final Urine,Voided 02/06/22 07:50 Blood Culture - Preliminary Blood No Growth after 48 hours Assessment and Plan Time with Patient: Less than 30
[2022-02-09] MEDS: DIVALPROEX ER 500 MG TAB.ER.24H PO SCH (20:55)
[2022-02-09] MEDS: traZODone HCL 100 MG TAB PO SCH (20:55)
[2022-02-09] MEDS ORDERED: MELATONIN 3 MG TABLET PO PRN (22:01)
--- NOTE | 2022-02-09 23:56 | P.PN ---
Subjective Progress Note Date: 02/09/22 Patient was seen for a follow-up. Patient's was also present today. Patient has improved significantly. Her speech has improved. Also level of orientation. Patient's believes that she was progressively getting worse prior to arrival to the hospital. She is slowly getting better. He believes that it is from medication side effect. Patient laying comfortably in the bed. Patient states that she at first was given Abilify. She was getting side effects from it. She was switched to Lexapro. Each time she was given this medication, she couldn't talk, couldn't walk. She does have depression. Objective - Vital Signs Vital signs: Vital Signs Temp 98 F 02/09/22 02:07 Pulse 66 02/09/22 02:07 Resp 18 02/09/22 02:07 BP 116/66 02/09/22 02:07 Pulse Ox 97 02/09/22 02:07 FiO2 Intake & Output 02/08/22 02/09/22 02/09/22 18:59 06:59 18:59 Intake Total 50 Balance 50 Intake: Intake, IV Titration 50 Amount cefTRIAXone 1 gm In 50 Sodium Chloride 0.9% 50 ml @ 100 mls/hr IVPB Q24HR [facility] Rx#:[id number] Other: Voiding Method Toilet Toilet Toilet # Voids 1 - Exam Patient's mental status, speech and language functions are improved. She can name all objects presented. Patient can repeat. Patient is not having paraphasic errors. Fluency is improved. No further gibberish speech noted. Patient knows it is 02/09/2022 and that she is [facility] in [place]. She could not tell what city she is currently in or what city she lives in. She knows name of the current president. Cranial nerves are normal. Visual garcia are full. Face is symmetric. Muscle strength is normal. No ataxia. Patient has very minimal tremors of outstretched hands. Sensations equal. - Labs CBC & Chem 7: 02/05/22 17:47 02/05/22 17:47 Labs: Abnormal Lab Results - Last 24 Hours (Table) 02/08/22 02/08/22 Range/Units 12:40 12:40 Folate 3.50 L (4.40-31.00) ng/mL TSH 0.120 L (0.465-4.680) mIU/L Microbiology - Last 24 Hours (Table) 02/06/22 07:50 Blood Culture - Preliminary Blood No Growth after 72 hours 02/06/22 10:00 Urine Culture - Final Urine,Voided Assessment and Plan Assessment: * Altered mental status, acute delirium. Patient intermittently has word salad, flight of ideas, gibberish speech. Patient also has history of bipolar disorder, therefore acute sang is also a possibility. Psychiatry onboard. [facility] less likely, as examination is otherwise nonfocal. Rule out Wernicke's encephalopathy. Patient denies alcoholism, but does have weight loss and may have some nutritional deficiency. Patient's mentation much better today. * Acute UTI, which may be contributing to delirium. Urine cultures negative. * Cephalalgia, unclear cause, perhaps related to above * Depakote toxicity (level 117) * Folate deficiency * CAD * Bipolar disorder. Plan: * MRI brain could not be performed, as patient has stents, which could not be clarified if MRI compatible. Computed tomography scan of the head was performed today. It reported as cerebral atrophy, no acute intracranial process. I personally reviewed CT head, reveals evidence of significant bifrontal atrophy. No other acute process. * EEG pending. * Continue aspirin 81 mg daily. * B12 909, Folate 3.5, B6, MMA, B1, TSH 0.120. Free T4 pending. Internal medicine to address thyroid functions. We will start folate replacement. * Continue thiamine 100 mg daily. * Agree with decreasing Depakote dose to 1000 mg daily. (Previously on 1500 mg daily). Ammonia is normal. * Patient had abnormal urinalysis. However urine cultures are negative. Ceftriaxone stopped.
[2022-02-10 03:31] VITALS: TEMP 97.9
[2022-02-10] MEDS: ACETAMINOPHEN TAB 325 MG TAB PO PRN (07:12)
[2022-02-10] MEDS: LEVOTHYROXINE 75 MCG TAB PO SCH (07:12)
[2022-02-10] MEDS: GABAPENTIN 400 MG CAP PO SCH (07:29)
[2022-02-10] MEDS: THIAMINE 100 MG TAB PO SCH (07:29)
[2022-02-10] MEDS: PANTOPRAZOLE 40 MG TABLET PO SCH (07:29)
[2022-02-10] MEDS: FOLIC ACID 1 MG TAB PO SCH (07:30)
[2022-02-10] MEDS: HEPARIN SODIUM,PORCINE/PF 5,000 UNIT/0.5 ML SYRINGE SQ SCH (07:30)
[2022-02-10] MEDS: OLANZapine ODT 5 MG TAB PO SCH (07:30)
[2022-02-10 07:48] VITALS: BP 116/73; PULSE 58; RESP 18
[2022-02-10 12:37] LABS: African American GFR (CKD) 110.5 (60.0-200.0); Anion Gap 6.2 mmol/L (10.00-18.00); BUN/Creat Ratio 9.97 Ratio (12.00-20.00); Blood Urea Nitrogen 6.6 mg/dL (9.0-27.0); Calcium 8.4 mg/dL (8.7-10.3); Carbon Dioxide 32.3 mmol/L (20.0-27.5); Non-African American GFR(CKD) 95.3 (60.0-200.0); Potassium 3.8 mmol/L (3.5-5.5)
--- NOTE | 2022-02-10 12:38 | US ---
EXAMINATION TYPE: US carotid duplex BILAT DATE OF EXAM: 02/10/2022 COMPARISON: CT brain CLINICAL HISTORY: speech difficulty. Speech difficulty. Current smoker. TECHNIQUE: Carotid duplex ultrasound examination. Indirect Doppler criteria was utilized. FINDINGS: EXAM MEASUREMENTS: RIGHT: Peak Systolic Velocity (PSV) cm/sec ----- Right CCA: 58.1 ----- Right ICA: 66.0 ----- Right ECA: 78.7 ICA/CCA ratio: 1.1 RIGHT: End Diastole cm/sec ----- Right CCA: 16.1 ----- Right ICA: 11.9 ----- Right ECA: 20.4 LEFT: Peak Systolic Velocity (PSV) cm/sec ----- Left CCA: 60.7 ----- Left ICA: 86.4 ----- Left ECA: 106.9 ICA/CCA ratio: 1.4 LEFT: End Diastole cm/sec ----- Left CCA: 18.8 ----- Left ICA: 25.9 ----- Left ECA: 15.0 VERTEBRALS (direction of flow): Right Vertebral: Antegrade Left Vertebral: Antegrade Rhythm: Normal CAR CHECKER NOTES: Intimal thickening bilaterally. Plaque seen within bilateral bulbs. Tortuous left CCA and left ICA. No elevated velocities at this time. IMPRESSION: 50 to 69% stenosis of the bilateral carotid bifurcations. Criteria for Assigning % of Stenosis / Diameter reduction (Estimation based on the indirect measurements of the internal carotid artery velocities (ICA PSV). 1. Normal (no stenosis)=ICA PSV < 125 cm/s: ratio < 2.0: ICA EDV<40 cm/s. 2. Less than 50% stenosis=ICA PSV < 125 cm/s: ratio < 2.0: ICA EDV<40 cm/s. 3. 50 to 69% stenosis=ICA PSV of 125 to 230 cm/s: ration 2.0 ? 4.0: ICA EDV 40-100 cm/s. 4. Greater than 70% stenosis to near occlusion= ICA PSV > 230 cm/s: ratio > 4.0: ICA EDV > 100 cm/s. 5. Near occlusion= ICA PSV velocities may be low or undetectable: variable ratio and ICA EDV. 6. Total occlusion=unable to detect flow.
--- NOTE | 2022-02-10 15:19 | P.PN ---
Subjective Progress Note Date: 02/10/22 This is a pleasant 50-year-old female who presents with shortness of breath and generalized weakness, as well as auditory and visual hallucinations over the past week. She was also recently started on Zoloft and trazodone 2 weeks outpatient. She is a current smoker. She also presents with slurred speech and right-sided weakness is being evaluated by neurology. Chest x-ray this morning shows bibasilar atelectasis without acute cardiopulmonary disease. Is pending CT brain with and without contrast, EEG. Patient was started on aspirin. Depakote dose has been decreased. Urine culture is negative, antibiotics have been discontinued patient denies dysuria. TSH is low at 0.120, folate is low at 3.50. She continues to be lethargic, falling asleep during conversation. 02/10/2022 Patient evaluated today sitting up in chair with at bedside. Patient is more alert than yesterday however she is still confused and fumbling on her words. She underwent brain CT yesterday than was negative for acute stroke, did show cerebral atrophy. She also underwent carotid ultrasound today which shows bilateral stenosis 50-69% and vascular services will be consulted for evaluation. Neurology would like patient to undergo EEG as well prior to discharge. Depakote level is now 89.6. Sodium has improved to 139, potassium 3.8. T4 level is pending, lab was unable to locate sample will need to redraw to rule out hyperthyroidism. Patient is afebrile, heart rate 58, blood pressure 116/73, 99% room air. Review of Systems Constitutional: Reports fatigue denied any fever. Cardio vascular: denied any chest pain, palpitations Gastrointestinal: denied any nausea, vomiting, diarrhea Pulmonary: Denied any shortness of breath cough Neurologic denied any new focal deficits All inpatient medications were reviewed and appropriate changes in these medications as dictated in the interval history and assessment and plan. PHYSICAL EXAMINATION: GENERAL: The patient is alert and oriented x3, not in any acute distress. Lethargic. Well developed, well nourished. HEENT: Pupils are round and equally reacting to light. EOMI. No scleral icterus. No conjunctival pallor. Normocephalic, atraumatic. No pharyngeal erythema. No thyromegaly. CARDIOVASCULAR: S1 and S2 present. No murmurs, rubs, or gallops. PULMONARY: Chest is clear to auscultation, no wheezing or crackles. ABDOMEN: Soft, nontender, nondistended, normoactive bowel sounds. No palpable organomegaly. MUSCULOSKELETAL: No joint swelling or deformity. EXTREMITIES: No cyanosis, clubbing, or pedal edema. NEUROLOGICAL: Gross neurological examination did not reveal any focal deficits. Patient falling asleep during examination. SKIN: No rashes. Assessment and plan Assessment Altered mental status secondary to acute delirium with visual and auditory hallucinations which have improved History of bipolar disorder maintained on depakote Acute UTI ruled out, urine culture negative Cephalgia Depakote toxicity level of 117, improved Mild hyponatremia most likely from poor oral intake, resolved Coronary artery disease Folate deficiency Rule out hyperthyroidism, T4 pending Nicotine dependency GI Prophylaxis Protonix DVT Prophylaxis Subcu heparin Full Code Plan Pending T4 Antibiotics discontinued no evidence for acute UTI patient is asymptomatic Pending further recommendations by neurology Vascular consultation Social work evaluation prior to discharge The impression and plan of care has been dictated by Iqra Marshall, Nurse Practitioner as directed. Dr. Faheem MD I have performed a history and physical examination and medical decision making of this patient, discussed the same with the dictator, and agree with the dictators assessment and plan as written, documented as a scribe. Based on total visit time, I have performed more than 50% of this visit. Objective - Vital Signs Vital signs: Vital Signs Temp 97.9 F 02/10/22 07:47 Pulse 58 L 02/10/22 07:47 Resp 18 02/10/22 07:47 BP 116/73 02/10/22 07:47 Pulse Ox 99 02/10/22 07:47 FiO2 Intake & Output 02/09/22 02/10/22 02/10/22 18:59 06:59 18:59 Other: Voiding Method Toilet Toilet Toilet # Voids 4 3 1 # Bowel Movements 2 - Labs CBC & Chem 7: 02/05/22 17:47 02/10/22 06:49 Labs: Abnormal Lab Results - Last 24 Hours (Table) 02/10/22 Range/Units 06:49 Carbon Dioxide 32.3 H (20.0-27.5) mmol/L Anion Gap 6.20 L (10.00-18.00) mmol/L BUN 6.6 L (9.0-27.0) mg/dL BUN/Creatinine Ratio 9.97 L (12.00-20.00) Ratio Calcium 8.4 L (8.7-10.3) mg/dL Microbiology - Last 24 Hours (Table) 02/06/22 07:50 Blood Culture - Preliminary Blood No Growth after 96 hours Assessment and Plan Time with Patient: Less than 30
--- NOTE | 2022-02-10 18:07 | P.DS ---
Providers Date of admission: 02/05/22 19:54 Attending physician: Silvestre Cook MD Consults: 02/05/22 19:53 Consult Physician Routine Consulting Provider: Ulices Montanez Consult Reason/Comments: hallucinations Do you want consulting provider notified?: Yes 02/07/22 19:58 Consult Physician Urgent Consulting Provider: Steven Barker Consult Reason/Comments: slurred speech and weakness Do you want consulting provider notified?: Yes 02/10/22 15:15 Consult Physician Routine Consulting Provider: Leonardo Prince Consult Reason/Comments: bilateral carotid stenosis Do you want consulting provider notified?: Yes Primary care physician: [facility] Course: Patient did not want to wait for T4 results, vascular consultation, and also neurology recommending EEG prior to discharge although did give script for outpatient EEG. Patient opted to leave AMA. Thiamine and Vitamin B1 scripts were sent in for patient. She is educated on the risks of leaving. She is aware of recommendations to decrease depakote dosing. Patient will follow up with [facility] as prior, she was also educated on the importance of tobacco cessation. Again patient left against medical advice. Patient Condition at Discharge: Undetermined Plan - Discharge Summary Discharge Rx Participant: No New Discharge Prescriptions: New Folic Acid 1 mg PO DAILY #30 tab Thiamine [Vitamin B-1] 100 mg PO DAILY #30 tab Continue Divalproex Sodium [Divalproex Sodium ER] 1,000 mg PO HS Levothyroxine Sodium 150 mcg PO DAILY Gabapentin 800 mg PO BID traZODone HCL [Desyrel] 100 mg PO HS OLANZapine ODT [ZyPREXA Zydis] 5 mg PO BID Ergocalciferol [Vitamin D2 (1250 Mcg = 87658 Iu)] 1,250 mcg PO WE Discontinued Escitalopram [Lexapro] 5 mg PO DAILY Divalproex Sodium [Divalproex Sodium ER] 500 mg PO DAILY rOPINIRole HCL [Requip] 0.25 mg PO HS Discharge Medication List Divalproex Sodium [Divalproex Sodium ER] 1,000 mg PO HS 02/05/22 [History] Gabapentin 800 mg PO BID 02/05/22 [History] Levothyroxine Sodium 150 mcg PO DAILY 02/05/22 [History] OLANZapine ODT [ZyPREXA Zydis] 5 mg PO BID 02/05/22 [History] traZODone HCL [Desyrel] 100 mg PO HS 02/05/22 [History] Ergocalciferol [Vitamin D2 (1250 Mcg = 07059 Iu)] 1,250 mcg PO WE 02/06/22 [History] Folic Acid 1 mg PO DAILY #30 tab 02/10/22 [Rx] Thiamine [Vitamin B-1] 100 mg PO DAILY #30 tab 02/10/22 [Rx] Follow up Appointment(s)/Referral(s): Leonardo Prince DO [Doctor of Osteopathic Medicine] - 1 Week Mo Harper MD [Primary Care Provider] - 1-2 days Ta Latif MD [Medical Doctor] - 1 Week Ambulatory/Diagnostic Orders: Basic Metabolic Panel [LAB.AMB] Time Frame: 3 Days, Location: None Selected Patient Instructions/Handouts: Altered Mental Status (GEN) Activity/Diet/Wound Care/Special Instructions: we Recommend outpatient psychiatric follow-up EEG as an OP, at [facility] Patient is given script for outpatient EEG Discharge Disposition: Left Against Medical Advice
--- NOTE | 2022-02-11 18:39 | CDI ---
Documentation Clarification Form Date: 02/11/2022 06:24:49 PM From: Yaa Sim Phone: Admit Date: 02/05/2022 07:54:00 PM Patient Name: Kendra Mehta Visit Number: [id number] Discharge Date: 02/10/2022 04:02:00 PM ATTENTION: The Clinical Documentation Specialists (CDI) and [facility] Coding Staff appreciate your assistance in clarifying documentation. Please respond to the clarification below the line at the bottom and electronically sign. The CDI & [facility] Coding staff will review the response and follow-up if needed. Please note: Queries are made part of the Legal Health Record. If you have any questions, please contact the author of this message via ITS. Dr. Silvestre Cook Encephalopathy is documented in the 02/08/22 Consult Note. Additional clarification regarding the type of encephalopathy is requested. History/Risk Factors: Hx bipolar & anxiety, auditory and visual hallucinations, ac psychosis likely 2nd to UTI Bipolar disorder unspecified cannabis use disorder, Depakote toxicity level 117 active smoker, Hardeep carotid stenosis, and hypotension Clinical Indicators: Labs: Abnormal Labs EEG: EEG as an OP, at [facility] (Left Against Medical Advice) CT Brain: Cerebral atrophy. No acute intracranial abnormality. Treatment: MRI brain with and without contrast to rule out CVA, other inflammatory process. Start aspirin 81 mg daily. Patient has received aspirin loading dose 324 mg yesterday. B12, Folate, B6, MMA, B1, TSH. Agree with decreasing Depakote dose to 1000 mg daily. (Previously on 1500 mg daily).Ammonia is normal. Neurology will follow. Consults: AMS acute delirium. Patient also has history of bipolar disorder, therefore acute sang is also a possibility. Psychiatry onboard. CVA less likely, as examination is otherwise nonfocal. Rule out Wernicke's encephalopathy. Patient denies alcoholism, but does have late loss and may have some nutritional deficiency. Cephalalgia, unclear cause, perhaps related to above Depakote toxicity (level 117) Please clarify the type of encephalopathy, if known: [ ] Metabolic Encephalopathy [ ] Toxic Encephalopathy [ ] Other, please specify [ ] Unable to determine (Template Last Revised: August 2020) Unable to determine, not evaluated pt during this admission MTDD
--- NOTE | 2022-02-13 16:01 | P.PN ---
Subjective Progress Note Date: 02/10/22 Patient was seen for a follow-up. Patient's was also present today. Patient is getting better. Patient tells me that she smokes marijuana once every 3 days. She has smoked a quarter pack per day since age 20. On asking about history of alcoholism, patient states that she drank alcohol from 1985 until 1993. Then she quit for 2 years and again started drinking from 1995- 1997. Then she quit. She would drink up to 10 beers at a time. Patient is still slightly confused, as she would overlap the years when she was mentioning about alcohol history. Patient states that she at first was given Abilify. She was getting side effects from it. She was switched to Lexapro. Each time she was given this medication, she couldn't talk, couldn't walk. She does have depression. Objective - Vital Signs Vital signs: Vital Signs Temp 97.9 F 02/10/22 07:47 Pulse 58 L 02/10/22 07:47 Resp 18 02/10/22 07:47 BP 116/73 02/10/22 07:47 Pulse Ox 99 02/10/22 07:47 FiO2 Intake & Output 02/09/22 02/10/22 02/10/22 18:59 06:59 18:59 Other: Voiding Method Toilet Toilet Toilet # Voids 4 3 # Bowel Movements 2 - Exam Patient's mental status, speech and language functions are improved. She can name all objects presented. Patient can repeat. Patient is not having paraphasic errors. Fluency is improved. No further gibberish speech noted. Patient knows it is 02/10/2022 and that she is [facility] in [facility]. She knows name of the current president. Cranial nerves are normal. Visual garcia are full. Face is symmetric. Muscle strength is normal. No ataxia. Patient has very minimal tremors of outstretched hands. Sensations equal. Patient has mild tremors for [id number] testing bilaterally. Mild tremors of outstretched hands. No tremors at rest. Tone and bulk of muscles normal. Patient walked in the hallway, was appearing slightly unsteady. However she was not appearing to be a fall risk. Slightly shaky, tremulous. - Labs CBC & Chem 7: 02/05/22 17:47 02/10/22 06:49 Labs: Microbiology - Last 24 Hours (Table) 02/06/22 07:50 Blood Culture - Preliminary Blood No Growth after 96 hours Assessment and Plan Assessment: * Altered mental status, acute delirium. Patient intermittently has word salad, flight of ideas, gibberish speech. Patient also has history of bipolar disorder, therefore acute sang is also a possibility. Psychiatry onboard. CVA less likely, as examination is otherwise nonfocal. Rule out Wernicke's encephalopathy. Patient denies alcoholism, but does have weight loss and may have some nutritional deficiency. Patient's mentation much better today. * Acute UTI, which may be contributing to delirium. Urine cultures negative. * Cephalalgia, unclear cause, perhaps related to above * Depakote toxicity (level 117) * Folate deficiency * CAD * Bipolar disorder. Plan: * MRI brain could not be performed, as patient has stents, which could not be clarified if MRI compatible. Computed tomography scan of the head was performed 02/09/2022 reported as cerebral atrophy, no acute intracranial process. I personally reviewed CT head, reveals evidence of significant bifrontal atrophy. No other acute process. * EEG pending. * Continue aspirin 81 mg daily. * B12 909, Folate 3.5, B6, MMA, B1, TSH 0.120. Free T4 pending. Internal medicine to address thyroid functions. We will start folate replacement. * Continue thiamine 100 mg daily. * Agree with decreasing Depakote dose to 1000 mg daily. (Previously on 1500 mg daily). Ammonia is normal. * Patient had abnormal urinalysis. However urine cultures are negative. Ceftriaxone stopped. * Recommend carotid Doppler, rule out stenosis. * Patient wants to go home. She is not ready to be discharged yet. Lot of workup is pending as above, including EEG, free T4, carotid Doppler. Recommend patient staying overnight and have testing done on Friday and then be released. * Patient apparently signed out AGAINST MEDICAL ADVICE.
--- NOTE | 2022-02-19 20:39 | CDI ---
Documentation Clarification Form Date: 02/19/2022 08:23:43 PM From: Yaa Sim Phone: Admit Date: 02/05/2022 07:54:00 PM Patient Name: Kendra Mehta Visit Number: [id number] Discharge Date: 02/10/2022 04:02:00 PM ATTENTION: The Clinical Documentation Specialists (CDI) and [facility] Coding Staff appreciate your assistance in clarifying documentation. Please respond to the clarification below the line at the bottom and electronically sign. The CDI & [facility] Coding staff will review the response and follow-up if needed. Please note: Queries are made part of the Legal Health Record. If you have any questions, please contact the author of this message via ITS. Dr. Rivers E Sheet Conflicting documentation has been found in the medical record. As attending physician, please provide clarification. Acute UTIruled out, urine culture negative per Dr. Maribell Osorio, whichmay becontributing todelirium. Urine cultures negative per Dr. Steven Barker History/Risk Factors: 61yo F, Acute delirium, UTI, Depakote toxicity, Brief psychotic disorder Clinical Indicators: Urine RBC 6 H 6 H Urine WBC 41 H 77 H Urine BacteriaRare H Urinalysis: Urinalysis does show evidence of infection per ED Note Urine Culture: Urine cultures negative Antibiotics: Urine culture is negative, antibiotics have been d/c. Patientdeniesdysuria Please clarify which diagnosis is most appropriate: [ ] Acute UTIpresent on admission [ ] Acute UTIruled out [ ] Other (please specify) [ ] Unable to determine (Template Last Revised: August 2020) Unable to determine MTDD
== END 2022-02-10 16:02 | disposition left against medical advice (07) | DRG 885 ==
LOC: EC 16:04 → 4SSUR 19:54
PROVIDERS: ADMIT Internal Medicine; ATTEND Internal Medicine
DX: F23 Brief psychotic disorder (principal); F05 Delirium due to known physiological condition; E87.1 Hypo-osmolality and hyponatremia; J98.11 Atelectasis; T42.6X5A Adverse effect of other antiepileptic and sedative-hypnotic drugs, initial encounter; M32.9 Systemic lupus erythematosus, unspecified; F31.9 Bipolar disorder, unspecified; E03.9 Hypothyroidism, unspecified; G25.81 Restless legs syndrome; J45.909 Unspecified asthma, uncomplicated; G31.9 Degenerative disease of nervous system, unspecified; F10.11 Alcohol abuse, in remission; G25.3 Myoclonus; I95.9 Hypotension, unspecified; R47.81 Slurred speech; Z53.29 Procedure and treatment not carried out because of patient's decision for other reasons; R26.89 Other abnormalities of gait and mobility; F41.9 Anxiety disorder, unspecified; R29.6 Repeated falls; F17.210 Nicotine dependence, cigarettes, uncomplicated; R79.89 Other specified abnormal findings of blood chemistry; I25.10 Atherosclerotic heart disease of native coronary artery without angina pectoris; G89.29 Other chronic pain; M54.50 Low back pain, unspecified; E63.9 Nutritional deficiency, unspecified; W19.XXXA Unspecified fall, initial encounter; R19.7 Diarrhea, unspecified; M79.7 Fibromyalgia; M19.90 Unspecified osteoarthritis, unspecified site; K59.03 Drug induced constipation; M54.2 Cervicalgia; T40.2X5A Adverse effect of other opioids, initial encounter; M79.604 Pain in right leg; Z20.822 Contact with and (suspected) exposure to COVID-19; E53.8 Deficiency of other specified B group vitamins; R51.9 Headache, unspecified; R30.0 Dysuria; R35.0 Frequency of micturition; Y92.009 Unspecified place in unspecified non-institutional (private) residence as the place of occurrence of the external cause; Z91.81 History of falling; Z79.899 Other long term (current) drug therapy; Z79.890 Hormone replacement therapy; Z79.891 Long term (current) use of opiate analgesic; I25.2 Old myocardial infarction; Z98.84 Bariatric surgery status; Z88.0 Allergy status to penicillin; Z98.890 Other specified postprocedural states; Z96.82 Presence of neurostimulator; Z95.5 Presence of coronary angioplasty implant and graft
CPT/HCPCS: 36415; 51798; 70450; 71045; 76770; 80048; 80053; 80164; 80165; 80306; 80320; 81001; 82075; 82140; 82607; 82746; 83036; 83735; 83921; 84207; 84425; 84439; 84443; 85025; 87040; 87086; 93880; 96361; 96365; 96366; 96372; 96375; 99285

== ENCOUNTER 2022-02-11 09:36 | Observation (INO) | payer OTHER ==
--- NOTE | 2022-02-11 10:25 | ED ---
General Adult HPI - General Chief complaint: Weakness Stated complaint: Slurred speech,shaking, issues walking Time Seen by Provider: 02/11/22 09:45 Source: patient, family Mode of arrival: ambulatory Limitations: no limitations - History of Present Illness Initial comments: Dictation was produced using Mimvi dictation software. please excuse any grammatical, word or spelling errors. Chief Complaint: 61-year-old female past nuchal history of bipolar disease. Presents back to the emergency department after leaving the hospital AMA for delirium History of Present Illness: 71-year-old female she left AGAINST MEDICAL ADVICE yesterday. She states she left AGAINST MEDICAL ADVICE because she had to pay her rent and patient her insurance. She states she took care of it and now is back in the hospital seeking readmission. Patient was admitted to the hospital for acute delirium. She is evaluated by psychiatry and neurology. At time of discharge she had pending studies. She had left prior to an EEG and blood work studies to be performed. She is cleared by psychiatry from a psychiatric standpoint. According to electronic medical records neurology requested EEG be performed prior to discharge. She was given a prescription for outpatient EEG however she did not complete it. Patient states that she is still symptomatic from 2 days ago. She states that she is having a shuffling gait and confusion. The ROS documented in this emergency department record has been reviewed and confirmed by me. Those systems with pertinent positive or negative responses have been documented in the HPI. All other systems are other negative and/or noncontributory. PHYSICAL EXAM: General Impression: Alert and oriented x3, not in acute distress HEENT: Normocephalic atraumatic, extra-ocular movements intact, pupils equal and reactive to light bilaterally, mucous membranes moist. Cardiovascular: Heart regular rate and rhythm Chest: Able to complete full sentences, no retractions, no tachypnea Abdomen: abdomen soft, non-tender, non-distended, no organomegaly Musculoskeletal: Pulses present and equal in all extremities, no peripheral edema Motor: no focal deficits noted Neurological: CN II-XII grossly intact, no focal motor or sensory deficits noted Skin: Intact with no visualized rashes Psych: Normal affect and mood ED course: 61-year-old female presents to the emergency department seeking readmission to the hospital after leaving AGAINST MEDICAL ADVICE yesterday. She is admitted for acute delirium. She was evaluated for CVA. Vital Signs upon arrival are within acceptable limits. Case discussed with [facility] hospitalist group who is willing to accept the patient for readmission - Related Data Home Medications Medication Instructions Recorded Confirmed Divalproex Sodium [Divalproex 1,000 mg PO HS 02/05/22 02/05/22 Sodium ER] Gabapentin 800 mg PO BID 02/05/22 02/05/22 Levothyroxine Sodium 150 mcg PO DAILY 02/05/22 02/05/22 OLANZapine ODT [ZyPREXA Zydis] 5 mg PO BID 02/05/22 02/05/22 traZODone HCL [Desyrel] 100 mg PO HS 02/05/22 02/05/22 Ergocalciferol [Vitamin D2 (1250 1,250 mcg PO WE 02/06/22 02/06/22 Mcg = 42841 Iu)] Previous Rx's Medication Instructions Recorded Folic Acid 1 mg PO DAILY #30 tab 02/10/22 Thiamine [Vitamin B-1] 100 mg PO DAILY #30 tab 02/10/22 Allergies Allergy/AdvReac Type Severity Reaction Status Date / Time No Known Allergies Allergy Verified 02/11/22 09:42 Review of Systems ROS Statement: Those systems with pertinent positive or pertinent negative responses have been documented in the HPI. ROS Other: All systems not noted in ROS Statement are negative. Past Medical History Past Medical History: Coronary Artery Disease (CAD), Myocardial Infarction ([place]), Thyroid Disorder Additional Past Medical History / Comment(s): RLS, chronic low back pain, UTIs, hypothyroid Last Myocardial Infarction Date:: 2009 History of Any Multi-Drug Resistant Organisms: None Reported Past Surgical History: Back Surgery, Heart Catheterization With Stent, Tubal Ligation Additional Past Surgical History / Comment(s): 3 back surgeries/has hardware, D&C Past Anesthesia/Blood Transfusion Reactions: No Reported Reaction Date of Last Stent Placement:: 2009 at [facility] Past Psychological History: Anxiety, Bipolar, Depression Smoking Status: Current every day smoker Past Alcohol Use History: None Reported Past Drug Use History: Marijuana - Past Family History Father History Unknown: Yes Additional Family Medical History / Comment(s): Father left family when pt was an infant. Mother History Unknown: Yes Additional Family Medical History / Comment(s): Mother when pt was a . General Exam Limitations: no limitations Course Vital Signs 02/11/22 02/11/22 09:38 10:11 Temperature 98.3 F Pulse Rate 86 64 Respiratory 20 18 Rate Blood Pressure 123/70 109/92 O2 Sat by Pulse 97 94 L Oximetry Medical Decision Making - Lab Data Result diagrams: 02/11/22 10:43 Lab Results 02/11/22 Range/Units 10:43 WBC 8.7 (3.8-10.6) k/uL RBC 3.96 (3.80-5.40) m/uL Hgb 12.7 (11.4-16.0) gm/dL Hct 38.4 (34.0-46.0) % MCV 97.1 (80.0-100.0) fL MCH 32.0 (25.0-35.0) pg MCHC 33.0 (31.0-37.0) g/dL RDW 15.1 (11.5-15.5) % Plt Count 260 (150-450) k/uL MPV 7.9 Neutrophils % 58 % Lymphocytes % 29 % Monocytes % 8 % Eosinophils % 3 % Basophils % 1 % Neutrophils # 5.0 (1.3-7.7) k/uL Lymphocytes # 2.5 (1.0-4.8) k/uL Monocytes # 0.7 (0-1.0) k/uL Eosinophils # 0.2 (0-0.7) k/uL Basophils # 0.1 (0-0.2) k/uL Disposition Clinical Impression: Acute delirium Disposition: ADMITTED IP TO THIS [facility] Condition: Fair [facility] - 1-2 days Decision Time: 10:53
[2022-02-11 10:49] LABS: Basophils # (A) 0.1 k/uL (0-0.2); Basophils % (A) 1 %; Eosinophils # (A) 0.2 k/uL (0-0.7); Eosinophils % (A) 3 %; HCT 38.4 % (34.0-46.0); HGB 12.7 gm/dL (11.4-16.0); Lymphocytes # (A) 2.5 k/uL (1.0-4.8); Lymphocytes % (A) 29 %; MCV 97.1 fL (80.0-100.0); Mean Platelet Volume 7.9; Monocytes # (A) 0.7 k/uL (0-1.0); Monocytes % (A) 8 %; Neutrophils % (A) 58 %; Platelet Count 260 k/uL (150-450); RBC 3.96 m/uL (3.80-5.40); RDW 15.1 % (11.5-15.5); WBC 8.7 k/uL (3.8-10.6)
[2022-02-11] MEDS ORDERED: NALOXONE 0.4 MG/ML 1 ML VIAL IV PRN (10:50)
[2022-02-11 11:06] LABS: African American GFR (CKD) >90 (>60 ml/min/1.73 sqM); Anion Gap 9 mmol/L; Blood Urea Nitrogen 7 mg/dL (7-17); Calcium 8.9 mg/dL (8.4-10.2); Carbon Dioxide 26 mmol/L (22-30); Chloride 104 mmol/L (98-107); Glucose 97 mg/dL (74-99); Non-African American GFR(CKD) >90 (>60 ml/min/1.73 sqM); Potassium 3.8 mmol/L (3.5-5.1); Sodium 139 mmol/L (137-145)
[2022-02-11] MEDS: SODIUM CHLORIDE 0.9% 1,000 ML IV SCH (14:51)
--- NOTE | 2022-02-11 16:21 | P.HPIM ---
History of Present Illness H&P Date: 02/11/22 This is a 61 year old female with history of coronary artery disease, myocardial infarction status post stenting, thyroid disorder, chronic pain with multiple back surgeries. Patient is a daily smoker and also history of alcohol use. Patient was admitted on 02/05/22 for altered mental status including slurred speech, confusion, and also ataxia with shuffling gait. She has been on multiple psychiatric medications at home including depakote, olanzapine, lexapro, gabapentin. Patient was found to have depakote toxicity her previous admission and was undergoing neurological work up however she left AMA yesterday. She reports falling at home and also states her gait has been worse since leaving hospital. She is still ataxic and also has some mild slurring of her words. She is admitted to the hospital with consult placed to neurology. Plan is for patient to undergo EEG and she will also be evaluated by PT/OT. Labs are unremarkable. She did have TSH and T4 checked yesterday showing TSH 0.120 and free T4 1.490. Patient is afebrile, heart rate 86, blood pressure 110/90, 96% on room air. REVIEW OF SYSTEMS: CONSTITUTIONAL: No fever, no malaise, no fatigue. HEENT: No recent visual problems or hearing problems. Denied any sore throat. CARDIOVASCULAR: No chest pain, orthopnea, PND, no palpitations, no syncope. PULMONARY: No shortness of breath, no cough, no hemoptysis. GASTROINTESTINAL: No diarrhea, no nausea, no vomiting, no abdominal pain. NEUROLOGICAL: No headaches, no weakness, no numbness. Reports shuffling gait, dysarthria HEMATOLOGICAL: Denies any bleeding or petechiae. GENITOURINARY: Denies any burning micturition, frequency, or urgency. MUSCULOSKELETAL/RHEUMATOLOGICAL: Denies any joint pain, swelling, or any muscle pain. ENDOCRINE: Denies any polyuria or polydipsia. The rest of the 14-point review of systems is negative. PHYSICAL EXAMINATION: GENERAL: The patient is alert and oriented x3, not in any acute distress. Well developed, well nourished. HEENT: Pupils are round and equally reacting to light. EOMI. No scleral icterus. No conjunctival pallor. Normocephalic, atraumatic. No pharyngeal erythema. No thyromegaly. CARDIOVASCULAR: S1 and S2 present. No murmurs, rubs, or gallops. PULMONARY: Chest is clear to auscultation, no wheezing or crackles. ABDOMEN: Soft, nontender, nondistended, normoactive bowel sounds. No palpable organomegaly. MUSCULOSKELETAL: No joint swelling or deformity. EXTREMITIES: No cyanosis, clubbing, or pedal edema. NEUROLOGICAL: No focal weakness, ataxia present, patient has shuffling gait and is also slurring words. SKIN: No rashes. Assessment and plan Assessment Altered mental status secondary to acute delirium History of bipolar disorder maintained on depakote Prior admission with depakote toxicity Coronary artery disease Folate deficiency Rule out hyperthyroidism Nicotine dependency GI Prophylaxis Pepcid DVT Prophylaxis Subcu heparin Full Code Plan Neurology evaluation EEG has been ordered PT/OT consultation Resume appropriate home medications The impression and plan of care has been dictated by Iqra Marshall Nurse Practitioner as directed. Dr. Faheem MD I have performed a history and physical examination and medical decision making of this patient, discussed the same with the dictator, and agree with the dictators assessment and plan as written, documented as a scribe. Based on total visit time, I have performed more than 50% of this visit. Past Medical History Past Medical History: Coronary Artery Disease (CAD), Myocardial Infarction ([place]), Thyroid Disorder Additional Past Medical History / Comment(s): Pt recently admitted to [facility] on 02/05/22 with AMS/visual and auditory hallucinations, possible UTI and left AMA. Other hx: Chronic low back pain, UTIs, hypothyroid, RLS Last Myocardial Infarction Date:: 2009 History of Any Multi-Drug Resistant Organisms: None Reported Past Surgical History: Back Surgery, Heart Catheterization With Stent, Tubal Ligation Additional Past Surgical History / Comment(s): 3 back surgeries/has hardware, D&C Past Anesthesia/Blood Transfusion Reactions: No Reported Reaction Date of Last Stent Placement:: 2009 at [facility] Smoking Status: Current every day smoker - Past Family History Father History Unknown: Yes Additional Family Medical History / Comment(s): Father left family when pt was an . Mother History Unknown: Yes Additional Family Medical History / Comment(s): Mother when pt was a . Medications and Allergies Home Medications Medication Instructions Recorded Confirmed Type Divalproex Sodium [Divalproex 1,000 mg PO HS 02/05/22 02/11/22 History Sodium ER] Gabapentin 800 mg PO BID 02/05/22 02/11/22 History Levothyroxine Sodium 150 mcg PO DAILY 02/05/22 02/11/22 History OLANZapine ODT [ZyPREXA Zydis] 5 mg PO BID 02/05/22 02/11/22 History traZODone HCL [Desyrel] 100 mg PO HS 02/05/22 02/11/22 History Ergocalciferol [Vitamin D2 (1250 1,250 mcg PO WE 02/06/22 02/11/22 History Mcg = 41463 Iu)] Folic Acid 1 mg PO DAILY #30 tab 02/10/22 02/11/22 Rx Thiamine [Vitamin B-1] 100 mg PO DAILY #30 tab 02/10/22 02/11/22 Rx Allergies Allergy/AdvReac Type Severity Reaction Status Date / Time No Known Allergies Allergy Verified 02/11/22 11:44 Physical Exam Vitals: Vital Signs Temp Pulse Resp BP Pulse Ox 02/11/22 12:50 86 18 110/90 96 02/11/22 10:11 64 18 109/92 94 L 02/11/22 09:38 98.3 F 86 20 123/70 97 Intake and Output 02/10/22 02/11/22 02/11/22 22:59 06:59 14:59 Other: Weight 77.111 kg Results CBC & Chem 7: 02/11/22 10:43 02/11/22 10:43 Thrombosis Risk Factor Assmnt - Choose All That Apply Any of the Below Risk Factors Present?: Yes Each Factor Represents 1 point: Obesity (BMI >25) Other Risk Factors: Yes Each Risk Factor Represents 2 Points: Age 61-74 years Other congenital or acquired thrombophilia - If yes, enter type in comment: No Thrombosis Risk Factor Assessment Total Risk Factor Score: 3 Thrombosis Risk Factor Assessment Level: Moderate Risk Assessment and Plan Time with Patient: Less than 30
--- NOTE | 2022-02-11 18:15 | CT ---
EXAMINATION TYPE: CT angio head neck DATE OF EXAM: 02/11/2022 COMPARISON: HISTORY: CT DLP: mGycm Automated exposure control for dose reduction was used. CONTRAST: Performed , patient injected with mL of . Images obtained with IV contrast and Three-D postprocessed images. Exam from the aortic arch to the v ertex of the brain. There is also noncontrast images of the brain. There is cerebral cortical atrophy. There is no mass effect or midline shift. No sign of intracranial hemorrhage. There is normal branching pattern of the great vessels of the aortic arch. There is bilateral arteria l flow in the subclavian arteries. There is arterial flow in the common internal and external carotid arteries bilaterally. There is bilateral wide patency of the carotid artery bifurcations. There is arterial flow in the vertebrobasilar artery system. There is no evidence of carotid or verte bral artery aneurysm or dissection. There is arterial flow in the anterior middle and posterior cerebral arteries bilaterally. No mass ef fect. No evidence of intracranial aneurysm or neovascularity. No evidence of hemodynamic stenosis. Th ere is normal enhancement of the venous sinuses. The left posterior cerebral artery appears to fill m ainly through the left posterior communicating artery. IMPRESSION: Negative CT angiogram of the neck. Negative CT angiogram of the brain.
[2022-02-11] MEDS: ASPIRIN 81 MG PO SCH (18:18)
[2022-02-11] MEDS ORDERED: ACETAMINOPHEN TAB 325 MG TAB PO PRN (18:38)
[2022-02-11] MEDS: traZODone HCL 100 MG TAB PO SCH (21:43)
[2022-02-11] MEDS: HEPARIN SODIUM,PORCINE/PF 5,000 UNIT/0.5 ML SYRINGE SQ SCH (21:43)
[2022-02-11] MEDS: GABAPENTIN 400 MG CAP PO SCH (21:43)
[2022-02-11] MEDS: OLANZapine ODT 5 MG TAB PO SCH (21:43)
[2022-02-11] MEDS: DIVALPROEX ER 500 MG TAB.ER.24H PO SCH (21:44)
--- NOTE | 2022-02-12 01:55 | EEG ---
ELECTROENCEPHALOGRAM REPORT PREAMBLE: This is a 61-year-old female, who came with altered mental status, some aphasia. This study is performed to rule out any epileptiform activity. EEG FINDINGS: This is a 21-channel digital EEG recorded with video competent, utilizing 10/20 international system with referential and bipolar montages. Background consists of well developed, well regulated moderate voltage activity in 8 Hertz alpha. Background is posterior dominant and reactive to eye opening and closing. Photic driving response was not seen. In the early part, some myogenic activity was seen in bitemporal region. During middle and later part of the study, the myogenic component disappeared, and there was evidence of intermittent focal dysrhythmic theta and delta seen in the left temporal region. Different stages of sleep were not seen. No focal or generalized epileptiform activity was seen. IMPRESSION: This is a mildly abnormal EEG due to intermittent focal slowing in the left temporal region. This is suggestive of focal cortical neuronal dysfunction, and may suggest underlying structural abnormality. Clinical correlation recommended. No epileptiform activity was seen. MMODL / IJN: [id number] / MTDD
[2022-02-12] MEDS: GABAPENTIN 400 MG CAP PO SCH ×2 (08:41→20:32)
[2022-02-12] MEDS: FAMOTIDINE 20 MG TAB PO SCH (08:41)
[2022-02-12] MEDS: HEPARIN SODIUM,PORCINE/PF 5,000 UNIT/0.5 ML SYRINGE SQ SCH ×2 (08:41→20:33)
[2022-02-12] MEDS: FOLIC ACID 1 MG TAB PO SCH (08:41)
[2022-02-12] MEDS: OLANZapine ODT 5 MG TAB PO SCH ×2 (08:41→20:33)
[2022-02-12] MEDS: ASPIRIN 81 MG PO SCH (08:42)
[2022-02-12] MEDS: DIVALPROEX ER 500 MG TAB.ER.24H PO SCH (08:42)
[2022-02-12] MEDS ORDERED: THIAMINE 100 MG TAB PO SCH (09:00)
--- NOTE | 2022-02-12 11:44 | P.CNNES ---
History of Present Illness Consult date: 02/11/22 Requesting physician: Sincere Jones Reason for Consult: Delirium History of Present Illness: Patient is a 61-year-old female, who was just recently admitted to the hospital, seen in neurology consultation on 02/08/2022 signed out AGAINST MEDICAL ADVICE yesterday, as she has to pay rent and some bills or otherwise she would have been kicked out of the house. After doing all the errands, she came back to the hospital. Patient says that in the last 24 hours while she was at home, she stumbled a few times but did not fall. She has been feeling very shaky. She can walk around in the room. Patient initially was admitted to the hospital on 02/05/2022 for auditory and visual hallucinations. Patient was seen by psychiatrist as well. It was felt side effect of medications. When I saw the patient on 02/08/2022, patient was acutely delirious, with intermittent word salad, flight of ideas and gibberish speech. Stroke TIA versus delirium was suspected. Patient also had an acute UTI at that time. MRI was recommended, but patient has stents, which could not be clarified if MRI compatible. Carotid Doppler revealed 50-69% stenosis of bilateral ICA. Patient was started on aspirin. Patient's blood test shows normal B12, but folate was low, which was started on replacement. Patient while in the hospital, gradually improved. Her speech is much better, as well as her gait. As of Depakote was decreased from 1500 down to 1000 mg daily. Review of Systems Constitutional: Denies chills, Denies fever Eyes: denies blurred vision, denies pain Ears, nose, mouth and throat: Denies headache, Denies sore throat Cardiovascular: Denies chest pain, Denies shortness of breath Respiratory: Denies cough Gastrointestinal: Denies abdominal pain, Denies diarrhea, Denies nausea, Denies vomiting Genitourinary: Denies dysuria, Denies hematuria Musculoskeletal: Denies myalgias Integumentary: Denies pruritus, Denies rash Neurological: Reports as per HPI Psychiatric: Reports as per HPI Past Medical History Past Medical History: Coronary Artery Disease (CAD), Myocardial Infarction ([place]), Thyroid Disorder Additional Past Medical History / Comment(s): Pt recently admitted to [facility] on 02/05/22 with AMS/visual and auditory hallucinations, possible UTI and left AMA. Other hx: Chronic low back pain, UTIs, hypothyroid, RLS Last Myocardial Infarction Date:: 2009 History of Any Multi-Drug Resistant Organisms: None Reported Past Surgical History: Back Surgery, Heart Catheterization With Stent, Tubal Ligation Additional Past Surgical History / Comment(s): 3 back surgeries/has hardware, D&C Past Anesthesia/Blood Transfusion Reactions: No Reported Reaction Date of Last Stent Placement:: 2009 at [facility] Smoking Status: Current every day smoker - Past Family History Father History Unknown: Yes Additional Family Medical History / Comment(s): Father left family when pt was an infant. Mother History Unknown: Yes Additional Family Medical History / Comment(s): Mother when pt was a . Medications and Allergies Home Medications Medication Instructions Recorded Confirmed Type Divalproex Sodium [Divalproex 1,000 mg PO HS 02/05/22 02/11/22 History Sodium ER] Gabapentin 800 mg PO BID 02/05/22 02/11/22 History Levothyroxine Sodium 150 mcg PO DAILY 02/05/22 02/11/22 History OLANZapine ODT [ZyPREXA Zydis] 5 mg PO BID 02/05/22 02/11/22 History traZODone HCL [Desyrel] 100 mg PO HS 02/05/22 02/11/22 History Ergocalciferol [Vitamin D2 (1250 1,250 mcg PO WE 02/06/22 02/11/22 History Mcg = 64155 Iu)] Folic Acid 1 mg PO DAILY #30 tab 02/10/22 02/11/22 Rx Thiamine [Vitamin B-1] 100 mg PO DAILY #30 tab 02/10/22 02/11/22 Rx Allergies Allergy/AdvReac Type Severity Reaction Status Date / Time No Known Allergies Allergy Verified 02/11/22 11:44 Physical Examination - Vital Signs Vital Signs: Vital Signs Temp Pulse Resp BP Pulse Ox 02/11/22 14:51 62 18 123/74 96 02/11/22 12:50 86 18 110/90 96 02/11/22 10:11 64 18 109/92 94 L 02/11/22 09:38 98.3 F 86 20 123/70 97 Intake and Output 02/11/22 02/11/22 02/11/22 06:59 14:59 22:59 Other: Weight 77.111 kg Patient is a middle aged female, in no acute distress. Patient is alert awake oriented to time place and person. Patient knows it is January in the year is 2021. She knows that she is in [facility] and name of the current president. Speech and language functions are normal. Patient can name and repeat very well. No aphasia or dysarthria. Attention, concentration and fund of knowledge is adequate. On cranial nerve examination, pupils are equal, round and reacting to light, visual garcia are full on confrontation, with no neglect on double simultaneous depression. Extraocular muscles are intact with no nystagmus. Face is symmetric, tongue protrudes to the midline. Palatal elevation and sensation normal, hearing and shoulder shrug normal, facial sensation normal. On muscle strength testing, there is no pronator drift and the strength is normal in arms and legs distally and proximally. Deep tendon reflexes are symmetric and diminished, and plantars downgoing. Sensory to touch is equal with no neglect on double simultaneous stimulation. Cerebellar function showed no ataxia for [id number] testing. Patient is mild to moderately tremulous for outstretched hands and for [id number] testing. No tremors at rest. No dysdiadochokinesia. No ataxia for heel-to- ventura testing on either side. Tone and bulk of muscles normal. Patient has almost constant tremors of the feet and lower limbs. Gait deferred. On general examination, there is no carotid bruit or murmur, S1-S2 audible. Chest is clear on consultation. Abdomen is soft nontender. No organomegaly, bowel sounds present. Peripheral pulses are present. No edema. Results - Laboratory Findings CBC and BMP: 02/11/22 10:43 02/11/22 10:43 Assessment and Plan Assessment: * Altered mental status, acute delirium, improved. Patient still appears delirious, with tremulousness of outstretched hands. * Status post UTI * Folate deficiency * Bipolar disorder * CAD * History of Depakote toxicity. Plan: * Patient has moderate ICA stenosis bilaterally. We will check CTA of head and neck for further evaluation. * EEG was performed, which was mildly abnormal due to intermittent focal slowing in the left temporal region. This is suggestive of focal cortical neuronal d ysfunction and may suggest underlying structure abnormality. Clinical correlation recommended. No epileptiform activity was seen. * Continue aspirin 81 mg daily * Patient spending lab from previous admission include vitamin B1 49 (38-122), B12 909, folate 3.5, methylmalonic acid 0.13. * Hemoglobin A1c 5.7 * Lipid panel * Patient has tremors of outstretched hands and resting tremors of the lower extent remedies. The resting tremors could be related to her Zyprexa that she has been taking for bipolar disorder. Depakote can produce tremors of outstretched hands. Patient recommended to follow up with her psychiatrist. * Neurology will follow. Thank you for the consult.
[2022-02-12] MEDS: SODIUM CHLORIDE 0.9% 1,000 ML IV SCH (12:01)
--- NOTE | 2022-02-12 13:59 | P.PN ---
Subjective Progress Note Date: 02/12/22 This is a 61 year old female with history of coronary artery disease, myocardial infarction status post stenting, thyroid disorder, chronic pain with multiple back surgeries. Patient is a daily smoker and also history of alcohol use. Patient was admitted on 02/05/22 for altered mental status including slurred speech, confusion, and also ataxia with shuffling gait. She has been on multiple psychiatric medications at home including depakote, olanzapine, lexapro, gabapentin. Patient was found to have depakote toxicity her previous admission and was undergoing neurological work up however she left AMA yesterday. She reports falling at home and also states her gait has been worse since leaving hospital. She is still ataxic and also has some mild slurring of her words. She is admitted to the hospital with consult placed to neurology. Plan is for patient to undergo EEG and she will also be evaluated by PT/OT. Labs are unremarkable. She did have TSH and T4 checked yesterday showing TSH 0.120 and free T4 1.490. Patient is afebrile, heart rate 86, blood pressure 110/90, 96% on room air. 02/12/2022 Patient evaluated today resting in bed. She is still ataxic, has not been up ambulating. PT/OT consultation currently pending. CT angiography negative for aneurysm or dissection. EEG negative for epileptiform activity, there is intermittent focal slowing left temporal region. Pending neurology follow up today. Patient feels less confused today, speech has improved as well. Blood pressure 106/65, heart rate 52, 96% room air. PHYSICAL EXAMINATION: GENERAL: The patient is alert and oriented x3, not in any acute distress. Well developed, well nourished. HEENT: Pupils are round and equally reacting to light. EOMI. No scleral icterus. No conjunctival pallor. Normocephalic, atraumatic. No pharyngeal erythema. No thyromegaly. CARDIOVASCULAR: S1 and S2 present. No murmurs, rubs, or gallops. PULMONARY: Chest is clear to auscultation, no wheezing or crackles. ABDOMEN: Soft, nontender, nondistended, normoactive bowel sounds. No palpable organomegaly. MUSCULOSKELETAL: No joint swelling or deformity. EXTREMITIES: No cyanosis, clubbing, or pedal edema. NEUROLOGICAL: No focal weakness, ataxia present, speech has improved today. SKIN: No rashes. Assessment and plan Assessment Altered mental status secondary to acute delirium History of bipolar disorder maintained on depakote Prior admission with depakote toxicity Coronary artery disease Folate deficiency Rule out hyperthyroidism Nicotine dependency GI Prophylaxis Pepcid DVT Prophylaxis Subcu heparin Full Code Plan Neurology Consultation PT/OT consultation for discharge recommendations Resume synthroid dose recommend to repeat level in 1 month outpatient and to follow up with endocrinology Continue to hold lexapro Possible DC in the next 24 hours The impression and plan of care has been dictated by Iqra Marshall, Nurse Practitioner as directed. Dr. Faheem MD I have performed a history and physical examination and medical decision making of this patient, discussed the same with the dictator, and agree with the dictators assessment and plan as written, documented as a scribe. Based on total visit time, I have performed more than 50% of this visit. Objective - Vital Signs Vital signs: Vital Signs Temp 97.6 F 02/12/22 07:00 Pulse 52 L 02/12/22 08:00 Resp 16 02/12/22 08:00 BP 106/65 02/12/22 07:00 Pulse Ox 96 02/12/22 07:00 FiO2 Intake & Output 02/11/22 02/12/22 02/12/22 18:59 06:59 18:59 Intake Total 900 Balance 900 Weight 77.111 kg Intake: Oral 900 Other: Voiding Method Toilet Toilet # Voids 1 1 - Labs CBC & Chem 7: 02/11/22 10:43 02/11/22 10:43 Assessment and Plan Time with Patient: Less than 30
[2022-02-12] MEDS: traZODone HCL 100 MG TAB PO SCH (20:32)
--- NOTE | 2022-02-12 22:25 | P.PN ---
Subjective Progress Note Date: 02/12/22 Patient was seen for a follow-up. Patient denies any new neurological symptoms. Patient is sitting on the side of the bed. Patient's was also present. Patient's speech is improved. Patient denies any memory disturbance otherwise. Objective - Vital Signs Vital signs: Vital Signs Temp 97.6 F 02/12/22 14:18 Pulse 60 02/12/22 14:18 Resp 16 02/12/22 14:18 BP 92/54 02/12/22 14:18 Pulse Ox 94 L 02/12/22 14:18 FiO2 Intake & Output 02/11/22 02/12/22 02/12/22 18:59 06:59 18:59 Intake Total 900 Balance 900 Weight 77.111 kg Intake: Oral 900 Other: Voiding Method Toilet Toilet # Voids 1 1 - Exam Patient's mental status, speech and language functions are normal. She is fully oriented. She is still slightly tremulous for [id number]-sd-plgh testing and for outstretched hands. No tremors at rest noted today. Tone and bulk of muscles normal. Muscle strength normal. - Labs CBC & Chem 7: 02/11/22 10:43 02/11/22 10:43 Assessment and Plan Assessment: * Altered mental status, acute delirium, improved. Patient still appears delirious, with tremulousness of outstretched hands. * Status post UTI * Folate deficiency * Bipolar disorder * CAD * History of Depakote toxicity. Plan: * Patient has moderate ICA stenosis bilaterally. CTA of head and neck are normal. I personally reviewed CTA of head and neck, and appears normal to me as well. * EEG was performed, which was mildly abnormal due to intermittent focal slowing in the left temporal region. This is suggestive of focal cortical neuronal dysfunction and may suggest underlying structure abnormality. Clinical correlation recommended. No epileptiform activity was seen. * Continue aspirin 81 mg daily * Patient's pending lab from previous admission include vitamin B1 49 (38-122), B12 909, folate 3.5, methylmalonic acid 0.13. Vitamin B6 4 (5-50). We will s tart B6 replacement with 50 mg daily. * Hemoglobin A1c 5.7 * Lipid panel pending * Recommend patient follow up with psychiatrist regarding management of psych medications. * Neurologically clear. Dr. Arnold Hernandez we will start neurology service from the morning.
[2022-02-13 01:33] LABS: LDL Cholesterol,Calculated 120.4 mg/dL (0.0-131.0)
[2022-02-13] MEDS ORDERED: LEVOTHYROXINE 75 MCG TAB PO SCH (06:30)
[2022-02-13] MEDS ORDERED: ERGOCALCIFEROL 1,250 MCG (50,000 IU) CAPSULE PO SCH (09:00)
[2022-02-13] MEDS ORDERED: PYRIDOXINE 50 MG TAB PO SCH (09:00)
[2022-02-13] MEDS: FOLIC ACID 1 MG TAB PO SCH (09:01)
[2022-02-13] MEDS: OLANZapine ODT 5 MG TAB PO SCH (09:01)
[2022-02-13] MEDS: HEPARIN SODIUM,PORCINE/PF 5,000 UNIT/0.5 ML SYRINGE SQ SCH (09:01)
[2022-02-13] MEDS: FAMOTIDINE 20 MG TAB PO SCH (09:01)
[2022-02-13] MEDS: ASPIRIN 81 MG PO SCH (09:01)
[2022-02-13] MEDS: GABAPENTIN 400 MG CAP PO SCH (09:01)
[2022-02-13 11:20] VITALS: BP 112/67; PULSE 63; RESP 13; TEMP 98.4
[2022-02-13] MEDS: SODIUM CHLORIDE 0.9% 1,000 ML IV SCH (12:52)
--- NOTE | 2022-02-13 14:22 | P.CN ---
Psychiatric Consult - . Consult date: 02/13/22 Consult:: 02/13/22 14:21 IDENTIFYING DATA: This patient is a , employed, 61-year-old female with a significant history of bipolar disorder and anxiety who presented to the hospital on 02/11/2022 for falling at home and worsening gait since leaving the hospital. HISTORY OF PRESENT ILLNESS: The patient presented to the hospital on 02/11/2022 with a chief complaint of confusion and falls. She was noted to be ataxic with mild slurring of her words. She was previously admitted onto the medical floor on 02/05/2022 for altered mental status including slurred speech, confusion, and ataxia. The patient was undergoing neurological workup however left AGAINST MEDICAL ADVICE on 02/10/2022. During her previous admission, it was noted that her Depakote level was supratherapeutic. Psychiatry has been consulted for medication adjustment as her Zyprexa was discontinued when she was last discharged from this hospital. During her previous psychiatric assessment on 02/06/2022, the patient was presenting as confused with a strong suspicion for it being precipitated by a urinary tract infection. During her last admission, we discontinued the patient's Seroquel and Lexapro to decrease polypharmacy. Her Depakote was also decreased to 1000 mg at bedtime due to its supratherapeutic level. She was continued on Zyprexa. Patient states her outpatient provider tried to start her on abilify with her zyprexa. She suspects abilify to have contributed to her falls. Currently, the patient is not reporting any suicidal or homicidal ideation, intention, and/or plan. She does report that she was experiencing some disorganization and bizarre flashing lights prior to this admission. Reports that she did have some auditory hallucinations which have since subsided yesterday. She states that this would present as occasional whispers. She is not endorsing any mood symptoms or any other psychotic symptoms otherwise. PAST PSYCHIATRIC HISTORY: Patient has a history of bipolar disorder. Patient's home medication regimen includes Depakote, Lexapro, gabapentin, Zyprexa, Seroquel, and trazodone. She reports a previous psychiatric hospitalization years ago. She denies any outpatient psychiatric follow-up. She reports that she follows up with a neurologist. Patient denies any history of suicide attempts in the past. PAST MEDICAL HISTORY: Past Medical History: Coronary Artery Disease (CAD), Myocardial Infarction ([place]), Thyroid Disorder Additional Past Medical History / Comment(s): Pt recently admitted to [facility] on 02/05/22 with AMS/visual and auditory hallucinations, possible UTI and left AMA. Other hx: Chronic low back pain, UTIs, hypothyroid, RLS Last Myocardial Infarction Date:: 2009 History of Any Multi-Drug Resistant Organisms: None Reported Past Surgical History: Back Surgery, Heart Catheterization With Stent, Tubal Ligation Additional Past Surgical History / Comment(s): 3 back surgeries/has hardware, D&C Past Anesthesia/Blood Transfusion Reactions: No Reported Reaction Date of Last Stent Placement:: 2009 at [facility] Smoking Status: Current every day smoker ALLERGIES: NO KNOWN DRUG ALLERGIES CHEMICAL DEPENDENCY HISTORY: From her previous admission, Patient reports occasional marijuana use. She reports 1 pack per day tobacco use. She reports no alcohol use or illicit drug use. FAMILY PSYCHIATRIC/SUBSTANCE USE HISTORY: Denies SOCIAL HISTORY: Patient is currently and is employed. 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 MENTAL STATUS EXAM: General Appearance: Patient appears to be stated age is alert, pleasant, and cooperative. Patient appears to have a fair hygiene and grooming wearing hospital gown with fair eye contact. Behavior: Patient is calmly seated upright in bed without any agitated behavior. Speech: Patient's speech is fluent and nonpressured. The patient continues to have some word finding difficulty. Mood/Affect: Patient reports their mood is "feeling better", affect is congruent and euthymic. Suicidality/Homicidality: Patient denies any suicidal or homicidal ideation, intention, and/or plan. Perceptions: Patient reports auditory and visual hallucinations. Though content/process: There is no evidence of any delusional thought content and thought process is linear and goal-directed. Memory and concentration: Patient is currently alert and oriented 3. Con centration appears to be grossly intact. Judgment and insight: Fair IMPRESSIONS: Acute delirium, appears to be improving Folate deficiency Bipolar disorder, unspecified thyroid disorder Cannabis use disorder PLAN: -Continue your medical management; recommend supplementation and folic acid. -At this time patient DOES NOT meet criteria for inpatient psychiatric admission. The patient is not endorsing any acute psychotic symptoms or presenting with imminent risk of harm to self or others. 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 -Psychiatry will sign off at this time. Please call us or reconsult us if necessary. Vital Signs Temp 98.4 F 02/13/22 11:20 Pulse 63 02/13/22 11:20 Resp 13 02/13/22 11:20 BP 112/67 02/13/22 11:20 Pulse Ox 95 02/13/22 00:47 FiO2 Intake & Output 02/12/22 02/13/22 02/13/22 18:59 06:59 18:59 Intake Total 118 Output Total 37 Balance 81 Intake: Oral 118 Output: Post Void Residual 37 Other: Voiding Method Toilet Toilet Toilet # Voids 1 1 1 Laboratory Results - Last 24 Hours 02/11/22 10:43 Triglycerides 265.00 H Cholesterol 223.00 H LDL Cholesterol, Calc 120.4 VLDL Cholesterol, Calc 53.00 H HDL Cholesterol 49.60 Cholesterol/HDL Ratio 4.50 Allergies Allergy/AdvReac Type Severity Reaction Status Date / Time No Known Allergies Allergy Verified 02/11/22 11:44 02/13/22 14:21 02/13/22 14:21
[2022-02-13] MEDS ORDERED: ATORVASTATIN 20 MG TAB PO SCH (21:00)
--- NOTE | 2022-02-14 00:53 | P.DS ---
Providers Date of admission: 02/11/22 10:50 Attending physician: Maribell Mayen Consults: 02/11/22 10:50 Consult Physician Routine Consulting Provider: Steven Barker Consult Reason/Comments: delerium Do you want consulting provider notified?: Yes 02/12/22 19:54 Consult Physician Routine Consulting Provider: Aaron Kahn Consult Reason/Comments: meds adjustment, zyprexia was dc Do you want consulting provider notified?: Yes, Notify in am Primary care physician: [facility] Course: Diagnoses: Altered mental status secondary to acute delirium, resolved Bipolar disorder, looks stable upon discharge Thyroid nodule, as per sister her primary doctor is aware what the problem, patient informed and she is aware as well Folate deficiency Fall at home without syncope History of bipolar disorder maintained on depakote Prior admission with depakote toxicity Coronary artery disease Folate deficiency Rule out hyperthyroidism Nicotine dependency Hospital course: This is a 61 year old female with history of coronary artery disease, myocardial infarction status post stenting, thyroid disorder, chronic pain with multiple back surgeries. Patient is a daily smoker and also history of alcohol use. Patient was admitted on 02/05/22 for altered mental status including slurred speech, confusion, and also ataxia with shuffling gait. Patient has been evaluated by neurologist and psychiatrist on the previous admission patient was found to have valproic toxicity and dose was lowered 1500 mg down to 1000 mg daily, she takes valproic for bipolar, currently she looks psychiatrically stable and psychiatrist recommended to continue with same medication. also psychiatric cleared her for discharge today. Today she was fully awake and oriented, sitting up in bed and talking normally, follow commands and has insight into her illness and the surrounding. Patient states that she is back to her baseline and she is eager to be discharged today. She denies any chest pain or dyspnea, no abdominal pain or vomiting or diarrhea. No dysuria or urgency. No headache or dizziness. Patient was cleared for discharge by neurologist and psychiatrist Problems and management plan were discussed with the patient and he verbalized understanding and acceptance Patient was found stable and can be discharged home however he needs follow-up as an outpatient. Patient was instructed to follow up with PCP Danica Nagy within one week and patient agrees Patient also was instructed to follow up with neurologist Dr. Latif in 1-2 weeks Physical exam Gen: patient is a AAOx3, no distress CVS: S1-S2, RRR, no murmur Lungs: B/L CTA, no wheezing Abdomen: soft, no distention, no tenderness, positive bowel sounds Extremity: no leg edema or induration Get up and go test: Normal Time spent more than 35 minutes Patient Condition at Discharge: Fair Plan - Discharge Summary Discharge Rx Participant: No New Discharge Prescriptions: New Famotidine [Pepcid] 20 mg PO DAILY #30 tab Atorvastatin [Lipitor] 20 mg PO HS #30 tab Aspirin 81 mg PO DAILY #30 tab Pyridoxine [Vitamin B-6] 50 mg PO DAILY #30 tab Continue Divalproex Sodium [Divalproex Sodium ER] 1,000 mg PO HS Levothyroxine Sodium 150 mcg PO DAILY Gabapentin 800 mg PO BID Folic Acid 1 mg PO DAILY #30 tab Thiamine [Vitamin B-1] 100 mg PO DAILY #30 tab traZODone HCL [Desyrel] 100 mg PO HS OLANZapine ODT [ZyPREXA Zydis] 5 mg PO BID Ergocalciferol [Vitamin D2 (1250 Mcg = 53995 Iu)] 1,250 mcg PO WE Discharge Medication List Divalproex Sodium [Divalproex Sodium ER] 1,000 mg PO HS 02/05/22 [History] Gabapentin 800 mg PO BID 02/05/22 [History] Levothyroxine Sodium 150 mcg PO DAILY 02/05/22 [History] OLANZapine ODT [ZyPREXA Zydis] 5 mg PO BID 02/05/22 [History] traZODone HCL [Desyrel] 100 mg PO HS 02/05/22 [History] Ergocalciferol [Vitamin D2 (1250 Mcg = 36480 Iu)] 1,250 mcg PO WE 02/06/22 [History] Folic Acid 1 mg PO DAILY #30 tab 02/10/22 [Rx] Thiamine [Vitamin B-1] 100 mg PO DAILY #30 tab 02/10/22 [Rx] Aspirin 81 mg PO DAILY #30 tab 02/12/22 [Rx] Famotidine [Pepcid] 20 mg PO DAILY #30 tab 02/12/22 [Rx] Atorvastatin [Lipitor] 20 mg PO HS #30 tab 02/13/22 [Rx] Pyridoxine [Vitamin B-6] 50 mg PO DAILY #30 tab 02/13/22 [Rx] Follow up Appointment(s)/Referral(s): [facility] - 1-2 days [facility], [NON-STAFF] - 1-2 Days (home care will call to set up appointment, any questions please call agency. ) Ta Latif MD [Medical Doctor] - 2 Weeks (neurologist ) Zuhair Salazar MD [REFERRING] - 2 Weeks (Lead Systems Developer, for your thyroid nodule. Check your thyroid function test) Patient Instructions/Handouts: Acute Delirium (DC) Activity/Diet/Wound Care/Special Instructions: Follow up with Dr Salazar with endocrinology outpatient for your thyroid nodule Repeat TSH/T4 in one month time Discharge Disposition: HOME SELF-CARE
== END 2022-02-13 16:25 | disposition home or self-care (01) ==
LOC: EC 09:36 → 6NMEDSUR 10:50
PROVIDERS: ADMIT Internal Medicine; ATTEND Internal Medicine
DX: R41.0 Disorientation, unspecified (principal); E04.1 Nontoxic single thyroid nodule; F31.9 Bipolar disorder, unspecified; I25.10 Atherosclerotic heart disease of native coronary artery without angina pectoris; I25.2 Old myocardial infarction; E03.9 Hypothyroidism, unspecified; F41.9 Anxiety disorder, unspecified; F32.A Depression, unspecified; F17.200 Nicotine dependence, unspecified, uncomplicated; F12.90 Cannabis use, unspecified, uncomplicated; E53.8 Deficiency of other specified B group vitamins; I65.23 Occlusion and stenosis of bilateral carotid arteries; G25.81 Restless legs syndrome; Z79.899 Other long term (current) drug therapy; Z79.890 Hormone replacement therapy; Z79.82 Long term (current) use of aspirin
CPT/HCPCS: 96372 ×3; 99285; 36415; 95816; 97530 ×2; 97162; 97166; 80061; 80048; 85025; 70496; 70498; G0378 ×3; Q9967; J1644 ×3

== ENCOUNTER → 2022-04-10 | Outpatient (CLI) | payer OTHER ==
--- NOTE | 2022-04-10 15:22 | MM ---
Reason for Exam: Clinical finding. Patient History: Menarche at age 12. First Full-Term at age 29. Postmenopausal. Risk Values: Renuka 5 year model risk: 1.6%. NCI Lifetime model risk: 7.9%. Prior Study Comparison: No prior studies available for comparison. Tissue Density: There are scattered fibroglandular densities. Findings: Analyzed By CAD. There is a spiculated rounded density measuring 1.1 cm at the 12:00 middle to posterior position right breast 5 cm the nipple. Finding is highly suggestive for malignancy. Ultrasound is recommended for additional workup. Overall Assessment: Incomplete: need additional imaging evaluation, BI-RAD 0 Management: Diagnostic Breast Ultrasound of the right breast. A clinical breast exam by your physician is recommended on an annual basis and results should be correlated with mammographic findings. This exam should not preclude additional follow-up of suspicious palpable abnormalities. Results were given to the patient verbally at the time of exam. Electronically signed and approved by: Aaron Melendez D.O. Radiologis
--- NOTE | 2022-04-10 15:43 | USB ---
Reason for Exam: Clinical finding. Patient History: Menarche at age 12. First Full-Term at age 29. Postmenopausal. Risk Values: Renuka 5 year model risk: 1.6%. NCI Lifetime model risk: 7.9%. Technique: Method: Whole Breast Handheld. Findings: The whole breast of the right breast, the axilla of the right breast and the retroareolar of the right breast were scanned. There is a solid hypoechoic nodule within the right breast 1:00 position 6 cm from nipple appears to correspond to the mammographic finding. This measures 0.8 x 0.8 x 0.8 cm. This is suspicious on ultrasound for malignancy. This was considered highly suggestive for malignancy on mammogram. Ultrasound core biopsy is recommended. Overall Assessment: Highly suggestive of malignancy, BI-RAD 5 Management: Ultrasound Core Biopsy of the right breast. A clinical breast exam by your physician is recommended on an annual basis and results should be correlated with mammographic findings. This exam should not preclude additional follow-up of suspicious palpable abnormalities. ??Results were given to the patient verbally at the time of exam. Electronically signed and approved by: Aaron Melendez D.O. Radiologis
== END | disposition home or self-care (01) ==
LOC: RADMAMWWP 14:36
PROVIDERS: ATTEND Family Medicine
DX: R92.8 Other abnormal and inconclusive findings on diagnostic imaging of breast (principal); N64.4 Mastodynia; Z78.0 Asymptomatic menopausal state
CPT/HCPCS: 77066; 76641; G0279; 77062

== ENCOUNTER → 2022-04-17 | Day surgery (SDC) | payer OTHER ==
--- NOTE | 2022-04-22 14:45 | MM ---
Reason for Exam: Post Procedure Mammogram. Last screening mammogram was performed less than 1 month ago. Patient History: Menarche at age 12. First Full-Term at age 29. Postmenopausal. Risk Values: Renuka 5 year model risk: 1.7%. NCI Lifetime model risk: 7.7%. Prior Study Comparison: 04/10/2022 Bilateral MG 3D diag mammo w/cad [facility], [facility]. Tissue Density: Right: There are scattered fibroglandular densities. Pathology Description: Location: 1 o'clock, upper inner quadrant. Marker Left Behind. Needle Type: Celero Cores: 2 Gauge: 12 The procedure of ultrasound guided core biopsy was explained to the patient. Benefits, alternatives, and risks were discussed. An informed consent was then obtained. The patient was placed in supine positioning for imaging and for the procedure. Preprocedure imaging redemonstrates near 1.1 cm heterogeneous hypoechoic mass at 1:00 position. The overlying skin was prepped and draped in usual sterile fashion. Lidocaine is used as anesthetic into the skin and subcutaneous tissue up to area of concern in the right breast. Under ultrasound guidance, a vacuum assisted biopsy gun device was used to obtain 2 core samples. Following this, a biopsy clip was left in lesion. The patient tolerated the procedure well without any immediate complication. The patient was kept in the radiology department for short stay after the procedure and then discharged home in stable condition. Postprocedure mammogram: The patient was transferred to mammography for physician ordered post procedure mammogram for clip placement verification. Biopsy clip identified in lesion of concern on mammogram. Impression: Successful, uncomplicated ultrasound guided core biopsy of area of concern in the right breast, full pathology results to follow. Intermediate to high index of suspicion noted. Pathology Results: Result: Malignant, Invasive ductal carcinoma. RIGHT BREAST, ONE O'CLOCK, ULTRASOUND GUIDED NEEDLE CORE BIOPSY: Invasive poorly differentiated ductal carcinoma (Grade 3). See Surgical Pathology Cancer Case Summary. Overall Assessment: Malignant Assessment: MG diagnostic mammo RT wo CAD - Right: Known biopsy proven malignancy, BI-RAD 6. Management: Surgical Consultation of the right breast. Electronically signed and approved by: Emmanuel Ferro M.D.
== END ==
LOC: RADUSWWP 07:44
PROVIDERS: ATTEND Nurse Practitioner Family
DX: C50.211 Malignant neoplasm of upper-inner quadrant of right female breast (principal); R92.8 Other abnormal and inconclusive findings on diagnostic imaging of breast; Z78.0 Asymptomatic menopausal state
CPT/HCPCS: 88305; 88342; 88341; 77065; 19083; A4648

== ENCOUNTER → 2022-04-25 | Outpatient (CLI) | payer OTHER ==
[2022-04-25 13:50] VITALS: BP 128/85; PULSE 80; RESP 16; TEMP 97.7
--- NOTE | 2022-04-25 13:54 | P.GSHP ---
History of Present Illness H&P Date: 04/25/22 Chief Complaint: right breast invasive ductal cancer Kendra is a 62 -year-old white female seen in consultation for Dr. Abhishek Che regarding a biopsy-proven right breast invasive ductal carcinoma. She underwent a bilateral screening mammogram on [id number]. 1.1 cm lesion was noted at the 12 o'clock position of the right breast. An ultrasound was recommended. This was performed on the same date and this revealed a 0.8 x 0.8 cm lesion for which core biopsy was recommended, this was performed on . Pathology revealed a grade 3 invasive ductal carcinoma this was ER/WI and HER-2 negative. The patient does not feel any lumps masses or notches of concern in the breast, however she did feel some pain in the midportion of the right breast and that is what initiated the evaluation. She had not had any mammogram in the past, this was her first mammogram. She has not had any surgery in either breast. She has not had any trauma or infection in the breast. 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 Family history: aunt paternal: breast cancer mother: pancreatic cancer; at 44 (mother at her , father when she was 13) Hormonal history: Menarche: 12 M5 breast fed: yes, age at first : 29, and second at 40 menopause: 52 BCP: 2 years in her 20's Surgical history: 3 back surgeries D&C cardiac stint Medical History: NC depression/anxiety, bipolar Social History: nicotine: 1/2 PPD since alcohol: none drugs: Marijuana occasionally - Constitutional Constitutional: Denies chills, Denies fever - EENT Eyes: denies blurred vision, denies pain Ears: deny: decreased hearing, tinnitus Ears, nose, mouth and throat: Denies headache, Denies sore throat - Breasts Breasts: bilateral: as per HPI - Cardiovascular Cardiovascular: Denies chest pain, Denies shortness of breath - Respiratory Respiratory: Denies cough, Denies 7 - Gastrointestinal Gastrointestinal: Denies abdominal pain, Denies diarrhea, Denies nausea, Denies vomiting - Genitourinary (Female) Genitourinary: Denies dysuria, Denies hematuria - Menstruation Menstruation: Reports as per HPI - Musculoskeletal Musculoskeletal: Denies myalgias - Integumentary Integumentary: Denies pruritus, Denies rash - Neurological Neurological: Denies numbness, Denies weakness - Psychiatric Psychiatric: Reports anxiety, Reports depression - Endocrine Endocrine: Denies fatigue, Denies weight change - Hematologic/Lymphatic Comment: none - Allergic/Immunologic Allergic/Immunologic: Reports as per HPI Past Medical History Past Medical History: Coronary Artery Disease (CAD), Myocardial Infarction (NC), Thyroid Disorder Additional Past Medical History / Comment(s): Pt recently admitted to [facility] on 02/05/22 with AMS/visual and auditory hallucinations, possible UTI and left AMA. Other hx: Chronic low back pain, UTIs, hypothyroid, RLS Last Myocardial Infarction Date:: 2009 History of Any Multi-Drug Resistant Organisms: None Reported Past Surgical History: Back Surgery, Heart Catheterization With Stent, Tubal Ligation Additional Past Surgical History / Comment(s): 3 back surgeries/has hardware, D&C. Past Anesthesia/Blood Transfusion Reactions: No Reported Reaction Date of Last Stent Placement:: 2009 at [facility] Past Psychological History: Anxiety, Bipolar, Depression Additional Psychological History / Comment(s): Pt resides with her spouse. She is normally independent. Smoking Status: Current every day smoker Past Alcohol Use History: None Reported Additional Past Alcohol Use History / Comment(s): Pt started smoking in 1977 and is a ppd smoker. Past Drug Use History: Marijuana Additional Drug Use History / Comment(s): Occasional marijuana use - Past Family History Father History Unknown: Yes Additional Family Medical History / Comment(s): Father left family when pt was an infant. Mother History Unknown: Yes Additional Family Medical History / Comment(s): Mother when pt was a . Medications and Allergies Home Medications Medication Instructions Recorded Confirmed Type Gabapentin 800 mg PO BID 02/05/22 04/11/22 History Levothyroxine Sodium 150 mcg PO DAILY 02/05/22 04/11/22 History traZODone HCL [Desyrel] 100 mg PO HS 02/05/22 04/11/22 History Thiamine [Vitamin B-1] 100 mg PO DAILY #30 tab 02/10/22 04/11/22 Rx Pyridoxine [Vitamin B-6] 50 mg PO DAILY #30 tab 02/13/22 04/11/22 Rx Divalproex [Depakote] 1 each PO BID 04/11/22 04/11/22 History busPIRone HCl [Buspar] 10 mg PO TID 04/11/22 04/11/22 History Allergies Allergy/AdvReac Type Severity Reaction Status Date / Time No Known Allergies Allergy Verified 04/11/22 11:30 Surgical - Exam - General no distress - Eyes normal ocular movement - Neck trachea midline - Respiratory normal respiratory effort - Cardiovascular Rhythm: regular Heart Sounds: normal: S1, S2 - Abdomen Abdomen: soft, non tender, no guarding, no rigid, no rebound - Integumentary normal turgor - Neurologic no disoriented, no combative - Musculoskeletal normal gait - Psychiatric oriented to time, oriented to person, oriented to place, speech is normal, memory intact Breast Exam: BRA: 32B inspection: bilateral grade 2 ptosis palpation: right breast: Multi-positional exam fibrocystic changes, approximately the 1 o'clock position some nodularity approximately 1-1/2-2 cm in size consistent with the biopsy-proven malignancy Right axilla: No adenopathy of concern Left breast: Multi-positional exam fibrocystic changes no dominant masses or nodules of concern Left axilla: No adenopathy of concern Results Bilateral mammograms reviewed Pathology reviewed invasive ductal carcinoma G3 triple negative right breast Assessment and Plan Assessment: Impression: Right breast invasive ductal carcinoma G3 ER/WI negative and HER-2 negative History of myocardial infarction Anxiety/depression/bipolar Plan: Presentation of case at tumor board Probable needle localization lumpectomy right breast via a donut mastopexy eccentric incision, sentinel node biopsy possible axillary node dissection, possible lymphatic mapping, possible optical plastic tissue transfer Risks and benefits of the procedure. We discussed with the patient and her . Cc: Dr. Yessenia Mallory
== END | disposition home or self-care (01) ==
LOC: WWCWWP 13:05
PROVIDERS: ATTEND Surgery
DX: Z53.9 Procedure and treatment not carried out, unspecified reason (principal)

== ENCOUNTER 2022-06-04 07:11 | Observation (INO) | payer OTHER ==
--- NOTE | 2022-05-30 10:41 | P.PN ---
Subjective Progress Note Date: 05/30/22 Principal diagnosis: right breast invasive ductal cancer; stage [id number]; stage 1B Kendra is a 62 -year-old white female seen in consultation for Dr. Abhishek Che regarding a biopsy-proven right breast invasive ductal carcinoma. She underwent a bilateral screening mammogram on [id number]. 1.1 cm lesion was noted at the 12 o'clock position of the right breast. An ultrasound was recommended. This was performed on the same date and this revealed a 0.8 x 0.8 cm lesion for which core biopsy was recommended, this was performed on . Pathology revealed a grade 3 invasive ductal carcinoma this was ER/ID and HER-2 negative. The patient does not feel any lumps masses or notches of concern in the breast, however she did feel some pain in the midportion of the right breast and that is what initiated the evaluation. She had not had any mammogram in the past, this was her first mammogram. She has not had any surgery in either breast. She has not had any trauma or infection in the breast. Her case was presented at tumor board on [id number]. The patient did not have genetic testing performed. She declined chemotherapy. She wishes to have a right mastectomy with a right sentinel node biopsy. 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 Family history: aunt paternal: breast cancer mother: pancreatic cancer; at 44 (mother at her , father when she was 13) Hormonal history: Menarche: 12 M5 breast fed: yes, age at first : 29, and second at 40 menopause: 52 BCP: 2 years in her 20's Surgical history: 3 back surgeries D&C cardiac stint Medical History: MS depression/anxiety, bipolar history of seizure disorder brain MRI pending Social History: nicotine: 1/2 PPD since alcohol: none drugs: Marijuana occasionally - Constitutional Constitutional: Denies chills, Denies fever - EENT Eyes: denies blurred vision, denies pain Ears: deny: decreased hearing, tinnitus Ears, nose, mouth and throat: Denies headache, Denies sore throat - Breasts Breasts: bilateral: as per HPI - Cardiovascular Cardiovascular: Denies chest pain, Denies shortness of breath - Respiratory Respiratory: Denies cough - Gastrointestinal Gastrointestinal: Denies abdominal pain, Denies diarrhea, Denies nausea, Denies vomiting - Genitourinary (Female) Genitourinary: Denies dysuria, Denies hematuria - Menstruation Menstruation: Reports as per HPI - Musculoskeletal Musculoskeletal: Denies myalgias - Integumentary Integumentary: Denies pruritus, Denies rash - Neurological Neurological: Denies numbness, Denies weakness - Psychiatric Psychiatric: Reports anxiety, Reports depression - Endocrine Endocrine: Denies fatigue, Denies weight change - Hematologic/Lymphatic Comment: none - Allergic/Immunologic Allergic/Immunologic: Reports as per HPI Past Medical History Past Medical History: Coronary Artery Disease (CAD), Myocardial Infarction (MS), Thyroid Disorder Additional Past Medical History / Comment(s): Pt recently admitted to [facility] on 02/05/22 with AMS/visual and auditory hallucinations, possible UTI and left AMA. Other hx: Chronic low back pain, UTIs, hypothyroid, RLS Last Myocardial Infarction Date:: 2009 History of Any Multi-Drug Resistant Organisms: None Reported Past Surgical History: Back Surgery, Heart Catheterization With Stent, Tubal Ligation Additional Past Surgical History / Comment(s): 3 back surgeries/has hardware, D&C. Past Anesthesia/Blood Transfusion Reactions: No Reported Reaction Date of Last Stent Placement:: 2009 at [facility] Past Psychological History: Anxiety, Bipolar, Depression Additional Psychological History / Comment(s): Pt resides with her spouse. She is normally independent. Smoking Status: Current every day smoker Past Alcohol Use History: None Reported Additional Past Alcohol Use History / Comment(s): Pt started smoking in 1977 and is a ppd smoker. Past Drug Use History: Marijuana Additional Drug Use History / Comment(s): Occasional marijuana use - Past Family History Father History Unknown: Yes Additional Family Medical History / Comment(s): Father left family when pt was an . Mother History Unknown: Yes Additional Family Medical History / Comment(s): Mother when pt was a . Medications and Allergies Home Medications Medication Instructions Recorded Confirmed Type Gabapentin 800 mg PO BID 02/05/22 04/11/22 History Levothyroxine Sodium 150 mcg PO DAILY 02/05/22 04/11/22 History traZODone HCL [Desyrel] 100 mg PO HS 02/05/22 04/11/22 History Thiamine [Vitamin B-1] 100 mg PO DAILY #30 tab 02/10/22 04/11/22 Rx Pyridoxine [Vitamin B-6] 50 mg PO DAILY #30 tab 02/13/22 04/11/22 Rx Divalproex [Depakote] 1 each PO BID 04/11/22 04/11/22 History busPIRone HCl [Buspar] 10 mg PO TID 04/11/22 04/11/22 History Allergies Allergy/AdvReac Type Severity Reaction Status Date / Time No Known Allergies Allergy Verified 04/11/22 11:30 Objective - Constitutional General appearance: Present: cooperative - EENT Eyes: Present: EOMI ENT: Present: hearing grossly normal - Neck Neck: Present: normal ROM - Respiratory Respiratory: bilateral: CTA - Cardiovascular Rhythm: regular Heart sounds: normal: S1, S2 - Gastrointestinal General gastrointestinal: Present: soft - Integumentary Integumentary: Present: normal turgor - Musculoskeletal Musculoskeletal: Present: gait normal - Psychiatric Psychiatric: Present: A&O x's 3, appropriate affect, intact judgment & insight - Additional findings Additional findings: Breast Exam: BRA: 32B inspection: bilateral grade 2 ptosis palpation: right breast: Multi-positional exam fibrocystic changes, approximately the 1 o'clock position some nodularity approximately 1-1/2-2 cm in size consistent with the biopsy-proven malignancy Right axilla: No adenopathy of concern Left breast: Multi-positional exam fibrocystic changes no dominant masses or nodules of concern Left axilla: No adenopathy of concern Assessment and Plan Assessment: Results Bilateral mammograms reviewed Pathology reviewed invasive ductal carcinoma G3 triple negative right breast Assessment and Plan Assessment: Impression: Right breast invasive ductal carcinoma G3 ER/ID negative and HER-2 negative History of myocardial infarction Anxiety/depression/bipolar history of siezure Plan: Presentation of case at tumor board done 05-07-22 The patient was given the option of the lumpectomy but wishes to have a mastectomy of the right breast performed. The plan is for right breast mastectomy with sentinel node injection sentinel node biopsy possible right axillary node dissection Preoperative clearance cardiology (Dr. Montemayor 05-07-22) clearance form neurology pending clearance from Dr. Salazar 05-07-22 clearance from [facility]icks N[facility] psychiatry (05-02-22) Risks and benefits of the procedure were discussed in detail with the patient and her . They understand and wish to proceed with a mastectomy. Risks include but are not limited to bleeding, infection, reaction to the anesthetic. Cc: Dr. Yessenia Oscar Additional CC's: Sameera Oscar
[2022-05-30 14:36] VITALS: BMI 30.2
[~2022-06-04 07:11] MED LIST: ALPRAZolam 0.5 MG TAB PO PRN; DEXAMETHASONE SOD PHOSPHATE 4 MG/ML 1 ML VIAL IV ONE; HEPARIN SODIUM,PORCINE/PF 5,000 UNIT/0.5 ML SYRINGE SQ PRN; LACTATED RINGERS 1,000 ML IV SCH; LIDOCAINE 1% (10MG/ML) FOR IV START INTRADERMA PRN; ONDANSETRON 4 MG/2 ML VIAL IVP ONE; Pre Op ABX Message 1 EACH MISC MISCELLANE ONE; SCOPOLAMINE 1 MG/72 HR PATCH TRANSDERM ONE
[2022-06-04] MEDS ORDERED: ROPIVACAINE 1,100 MG, SODIUM CHLORIDE 0.9% 500 ML 330 ML, EMPTY PAIN BALL 1 EACH MISCELLANE PRN ×2 (09:01)
--- NOTE | 2022-06-04 09:20 | NM ---
EXAMINATION TYPE: NM sentinel node injection DATE OF EXAM: 06/04/2022 COMPARISON: No direct comparisons. HISTORY: Right breast cancer. TECHNIQUE AND FINDINGS: The procedure of sentinel lymph node injection was explained to the patient. The benefits, alternatives, and risks were discussed. An informed consent was then obtained. Overlying skin is cleaned with sterile alcohol. Following this, 546 uCi Tc99m Tilmanocept was inject ed in the upper outer aspect of the right nipple intradermally. The patient tolerated the procedure well without any immediate complication. The patient was kept in the radiology department for short stay after the procedure and then taken to surgery for surgical p rocedure what is presumed intraoperative gamma probe will be used for sentinel lymph node detection. IMPRESSION: Right breast radiotracer injection for sentinel node localization as above.
[2022-06-04] MEDS ORDERED: MIDAZOLAM 2 MG/2 ML VIAL IV ONE (09:39)
--- NOTE | 2022-06-04 10:46 | P.NAPBC ---
NAPBC Queries - NAPBC Queries Was patient's case review presented at [facility] tumor board? If no, comment.: Yes Was patient's pathology reviewed at [facility]? If no, comment.: Yes Was breast conservation surgery offered? If no, comment.: Yes Was sentinel node biopsy offered? If no, comment.: Yes Was diagnosis confirmed by percutaneous core biopsy? If no, comment.: Yes Is patient mastectomy patient?: Yes Was a preop referral to reconstructive surgeon offered?: Yes (Patient declined at this time. ) Clinical Stage: stage 1 right breast [id number]-Pr-Her2-)G3
[2022-06-04] MEDS ORDERED: MIDAZOLAM 2 MG/2 ML VIAL ONE (11:08)
[2022-06-04] MEDS ORDERED: fentaNYL (PF) 50 MCG/ML 2 ML AMP ONE (11:08)
[2022-06-04] MEDS ORDERED: LIDOCAINE 2% INJ 20 MG/ML (2 ML VIAL) ONE (11:08)
[2022-06-04] MEDS ORDERED: PROPOFOL 10 MG/ML 20 ML VIAL IV ONE (11:08)
[2022-06-04] MEDS ORDERED: HYDROmorphone (PF) 1 MG/ML ONE (11:08)
[2022-06-04] MEDS ORDERED: SODIUM CHLORIDE 0.9% 100 ML with ceFAZolin 2,000 MG IV ONE ×2 (12:58)
--- NOTE | 2022-06-04 13:21 | P.OP ---
Date of Procedure: 06/04/22 Preoperative Diagnosis: Right breast invasive ductal carcinoma Postoperative Diagnosis: Same Procedure(s) Performed: Right mastectomy, sentinel node biopsy, lower level sentinel node resection Anesthesia: ALFREDITO Surgeon: Alecia Davidson Estimated Blood Loss (ml): 30 IV fluids (ml): 300 Pathology: other (The axillary tissue, breast right) Condition: stable Disposition: floor Indications for Procedure: Biopsy-proven invasive ductal carcinoma right breast Operative Findings: Fibrofatty breast tissue Description of Procedure: The patient is a 62-year-old white female diagnosed with a right breast invasive ductal carcinoma. She was given the option of the lumpectomy but opted for a mastectomy without immediate reconstruction, and sentinel node biopsy possible axillary node dissection. The patient was injected in the periareolar area with radio tracer in the preoperative area. She was then taken to the operating room. Following induction of anesthesia the neoprobe was used to interrogate the axilla. Radioactivity was identified in the axilla. There is no blue dye was injected. The right breast was prepped and draped in a sterile fashion as well as the right axilla. A marking pen was utilized to gaurang the area for the incision for the mastectomy. The superior incision was formed. This the superior flap was developed and carried down to the chest wall. The inferior flap was then developed and carried down to the chest wall. The breast was removed from medial to lateral using the electrocautery device as well as the Harmonic scalpel as necessary. The area of the axilla was approached. Upon entering the axilla the neoprobe was utilized to identify a sentinel lymph node. This was removed. The 10 second count was 1017. Additional sentinel node #2 and #3 were identified. [place] node #2 had a count of 43,249, and sentinel node #3 had a count of 17,310. The residual background count at 10 seconds was 24. The axillary area was well evaluated. The area of the axillary vein was identified. Tissues in the axilla felt nodular. Tissues were therefore swept inferiorly below the axillary vein between the thoracodorsal and long thoracic nerves. This tissue was sent as axillary tissue. After assured that hemostasis was attained the axilla and the mastectomy site were irrigated. 2 #10 CHADWICK drains were placed one in the axilla and one under the mastectomy flap. There were secured using nylon suture. The subcutaneous tissues were closed using running 3-0 Vicryl suture. The skin was closed using 4-0 Monocryl. Steri-Strips applied. Sterile dressing is applied. The patient tolerated procedure in stable condition. All instrument and sponge counts were correct at the end of the case.
[2022-06-04] MEDS ORDERED: NALOXONE 0.4 MG/ML 1 ML VIAL IV PRN (13:22)
[2022-06-04] MEDS ORDERED: ONDANSETRON 4 MG/2 ML VIAL IVP PRN (13:22)
[2022-06-04] MEDS: HYDROmorphone 0.5 MG/0.5 ML SYRINGE IVP PRN ×4 (13:40→15:15)
[2022-06-04] MEDS: DEXTROSE 5%-0.45% NACL 1,000 ML IV SCH (15:57)
[2022-06-04] MEDS: HYDROmorphone 1 MG/ML 1 ML SYRINGE IVP PRN ×3 (15:57→21:59)
[2022-06-04] MEDS: HYDROcodone/APAP 5-325MG 1 EACH TAB PO PRN (17:42)
[2022-06-04] MEDS: HEPARIN SODIUM,PORCINE/PF 5,000 UNIT/0.5 ML SYRINGE SQ SCH (18:18)
[2022-06-04] MEDS: DIVALPROEX 250 MG TABLET.DR PO SCH (20:43)
[2022-06-04] MEDS: busPIRone HCl 10 MG TAB PO SCH (20:43)
[2022-06-04] MEDS: GABAPENTIN 400 MG CAP PO SCH (20:55)
[2022-06-05] MEDS: busPIRone HCl 10 MG TAB PO SCH ×4 (01:33→22:13)
[2022-06-05] MEDS: HEPARIN SODIUM,PORCINE/PF 5,000 UNIT/0.5 ML SYRINGE SQ SCH ×3 (03:23→18:35)
[2022-06-05] MEDS: HYDROmorphone 1 MG/ML 1 ML SYRINGE IVP PRN ×7 (03:24→22:13)
[2022-06-05] MEDS: DEXTROSE 5%-0.45% NACL 1,000 ML IV SCH ×2 (04:40→10:03)
[2022-06-05] MEDS: LEVOTHYROXINE 75 MCG TAB PO SCH (06:39)
[2022-06-05 08:02] LABS: Basophils % (A) 0 %; Eosinophils % (A) 0 %; HCT 37.5 % (34.0-46.0); HGB 12.2 gm/dL (11.4-16.0); Lymphocytes # (A) 3.5 k/uL (1.0-4.8); Lymphocytes % (A) 23 %; MCH 31.8 pg (25.0-35.0); MCHC 32.5 g/dL (31.0-37.0); MCV 97.9 fL (80.0-100.0); Monocytes # (A) 0.8 k/uL (0-1.0); Monocytes % (A) 5 %; Neutrophils # (A) 10.7 k/uL (1.3-7.7); Neutrophils % (A) 70 %; Platelet Count 416 k/uL (150-450); RBC 3.83 m/uL (3.80-5.40); WBC 15.2 k/uL (3.8-10.6)
[2022-06-05] MEDS: HYDROcodone/APAP 5-325MG 1 EACH TAB PO PRN ×4 (08:37→22:25)
[2022-06-05] MEDS: GABAPENTIN 400 MG CAP PO SCH ×3 (08:38→22:23)
[2022-06-05] MEDS: DIVALPROEX 250 MG TABLET.DR PO SCH ×2 (08:39→22:12)
--- NOTE | 2022-06-05 12:05 | P.PN ---
Subjective Progress Note Date: 06/05/22 Principal diagnosis: right breast invasive ductal cancer; stage [id number]; stage 1B; POD #1 axillary node resection Chest CT is a 62-year-old white female postop day #1 right mastectomy with axillary node sampling. Postoperatively she is doing well. She is tolerating diet without difficulty. She does still have some postoperative discomfort and is requiring IV pain medication. Objective - Vital Signs Vital signs: Vital Signs Temp 98.3 F 06/05/22 08:00 Pulse 85 06/05/22 08:00 Resp 18 06/05/22 08:00 BP 105/69 06/05/22 08:00 Pulse Ox 98 06/05/22 08:00 FiO2 Intake & Output 06/04/22 06/05/22 06/05/22 18:59 06:59 18:59 Intake Total 750 Output Total 58 30 Balance 692 -30 Weight 73 kg Intake: IV 750 Output: Drainage 28 30 RIGHT CHADWICK DRAIN (SECOND) 15 10 Right 13 20 Estimated Blood Loss 30 Other: # Voids 0 1 1 - Constitutional General appearance: Present: cooperative - EENT Eyes: Present: EOMI ENT: Present: hearing grossly normal - Neck Neck: Present: normal ROM - Respiratory Respiratory: bilateral: CTA - Cardiovascular Heart sounds: normal: S1, S2 - Gastrointestinal General gastrointestinal: Present: soft - Integumentary Integumentary Comment(s): Incision clean and dry CHADWICK output CHADWICK #1 20 mL serous, CHADWICK #2 10 mL serous No evidence of winged scapula - Labs CBC & Chem 7: 06/05/22 07:37 Labs: Abnormal Lab Results - Last 24 Hours (Table) 06/05/22 Range/Units 07:37 WBC 15.2 H (3.8-10.6) k/uL Neutrophils # 10.7 H (1.3-7.7) k/uL Assessment and Plan Assessment: Impression: Right breast invasive ductal carcinoma G3 ER/SC negative and HER-2 negative History of myocardial infarction Anxiety/depression/bipolar history of siezure Postop day #1 right breast mastectomy and sentinel node sampling Plan: Change IV heparin lock Continued pain management Probable discharge home tomorrow Social work to be involved in case
--- NOTE | 2022-06-05 16:56 | P.CONS ---
History of Present Illness - Reason for Consult Consult date: 06/05/22 Medical management, postop right mastectomy - History of Present Illness This is a pleasant 62-year-old female who was recently admitted under surgery services Dr. Marquis Elena and underwent right breast mastectomy postop day #1 with axillary node resection and biopsies sent. Patient with confirmed diagnosis in April after biopsy of right breast invasive ductal carcinoma stage I be grade 3. Patient reports she follows with Dr. Mallory in the outpatient setting with a past medical history of chronic back pain due to sciatica, hypothyroidism, myocardial infarction in 2009 with coronary artery disease, former smoker reporting she quit 2 weeks ago, and recently diagnosed in April with breast cancer on the right. Patient reports she uses marijuana occasionally and denies any other illicit drug or alcohol use. Patient does also report a history of anxiety with bipolar depression and takes Depakote. Patient reports she did require an receive presurgical screening and clearance from her primary care provider and also cardiology. Patient is reporting severe 10/10 pain and will continue with current pain regimen. Encouraged incentive spirometer use and education provided on how to properly use it and also encouraged increase activity as tolerated. Patient was on IV hydration recommending decreasing the dose as patient is eating and drinking with no difficulties. WBC elevated at 15.2 this morning although patient is afebrile denies shortness of breath or burning with urination. Possible reactivity due to recent surgery Review Of Systems: Constitutional: No fever, no chills, no night sweats. No weight change. No weakness, fatigue or lethargy. No daytime sleepiness. EENT: No headache. No blurred vision or double vision, no loss of vision. No loss of Hearing, no ringing in the ears, no dizziness. No nasal drainage or congestion. No epistaxis. No sore throat. Lungs: No shortness of breath, cough, no sputum production. No wheezing. Cardiovascular: Reports right chest wall pain at the surgical site, no lower extremity edema. No palpitations. No paroxysmal nocturnal dyspnea. No orthopnea. No lightheadedness or dizziness. No syncopal episodes. Abdominal: No abdominal pain. No nausea, vomiting. No diarrhea. No constipation. No bloody or tarry stools.. No loss of appetite. Genitourinary: No dysuria, increased frequency, urgency. No urinary retention. Musculoskeletal: No myalgias. No muscle weakness, no gait dysfunction, no frequent falls. No back pain. No neck pain. Integumentary: No wounds, no lesions. No rash or pruritus. No unusual bruising. No change in hair or nails. Neurologic: No aphasia. No facial droop. No change in mentation. No head injury. No headache. No paralysis. No paresthesia. Psychiatric: Reports history of depression. No anxiety. No mood swings. Denies any suicidal thoughts or ideations Endocrine: No abnormal blood sugars. No weight change. No excessive sweating or thirst. No cold intolerance. PHYSICAL EXAMINATION: GENERAL: The patient is alert and oriented x4, Well developed, well nourished. HEENT: Pupils are round and equally reacting to light. EOMI. no scleral icterus. No conjunctival pallor. Normocephalic, atraumatic. No pharyngeal erythema. No thyromegaly. CARDIOVASCULAR: S1 and S2 muffled right breast surgical site dressing appears dry and intact and will defer exam to attending physician PULMONARY: Bilateral lung sounds clear to auscultation with no wheezing or rhonchi noted. ABDOMEN: soft. Nontender on exam. obese. non-distended, normoactive bowel sounds. No palpable organomegaly. MUSCULOSKELETAL: No joint swelling or deformity. EXTREMITIES: No cyanosis, clubbing, or pedal edema. NEUROLOGICAL: Gross neurological examination did not reveal any focal deficits. SKIN: No rashes. Assessment: Status post right breast mastectomy and sentinel node biopsy due to right breast invasive ductal carcinoma stage IB grade 3 Mild leukocytosis, likely reactive due to surgery History of coronary artery disease [place] history of myocardial infarction Hypothyroidism History of anxiety/bipolar depression Former smoker, recently quit 2 weeks ago Occasional THC use GI prophylaxis DVT prophylaxis Full code Plan: Recommend to continue with current medications and management per surgery ser vices Dr. Marquis Elena is admitting. Patient is status postop day 1 of right breast mastectomy for ductal carcinoma with a lymph node biopsy of the axilla. Patient is reporting significant pain requesting IV Dilaudid and increase in her duration of medications. Patient also receiving [place]. Patient does have a history of taking gabapentin along with Depakote for her chronic back pain and sciatica which she reports her primary care manages. Patient also recently treated for UTI and recently finished a dose of Macrobid in the outpatient setting. Patient denies any burning or frequency with urination. Patient reports she is tolerating oral intake with no reports of nausea or vomiting noted. Patient denies gas or bowel movement as of yet and reports to voiding with no pain or difficulties.. Encouraged increase activity as tolerated and also encourage the use of the incentive spirometer at least 10 times every hour while awake and instruction and education was provided on how to properly use this device. Nursing staff was at bedside. Home medications have been reviewed and resumed and we will continue to follow along with surgery during hospitalization. We would like to thank you kindly for this consultation. The impression and plan of care has been dictated by Deedee Gould, nurse practitioner as directed. Dr. Faheem ALFARO I have performed a history and examination and MDM of this patient, discussed the same with the dictator, and agree with the dictator's assessment and plan as written ,documented as a scribe. Based on total visit time, I have performed more than 50% of the visit. Any additional findings or plans will be noted. Past Medical History Past Medical History: Coronary Artery Disease (CAD), Cancer, Myocardial Infarction ([place]), Thyroid Disorder Additional Past Medical History / Comment(s): Pt recently admitted to [facility] on 02/05/22 with AMS/visual and auditory hallucinations, possible UTI and left AMA. Other hx: Chronic low back pain, UTIs, hypothyroid, 5 miscarriages. Breast cancer Last Myocardial Infarction Date:: 2009 History of Any Multi-Drug Resistant Organisms: None Reported Past Surgical History: Back Surgery, Heart Catheterization With Stent, Tubal Ligation Additional Past Surgical History / Comment(s): 3 back surgeries with hardware, D&C. Past Anesthesia/Blood Transfusion Reactions: No Reported Reaction Date of Last Stent Placement:: 2009 at [facility] Smoking Status: Former smoker - Past Family History Father History Unknown: Yes Additional Family Medical History / Comment(s): Father left family when pt was an . Mother History Unknown: Yes Additional Family Medical History / Comment(s): Mother when pt was a . Medications and Allergies Home Medications Medication Instructions Recorded Confirmed Type Gabapentin 800 mg PO BID 02/05/22 06/04/22 History Levothyroxine Sodium 150 mcg PO DAILY 02/05/22 06/04/22 History traZODone HCL [Desyrel] 100 mg PO HS 02/05/22 06/04/22 History Thiamine [Vitamin B-1] 100 mg PO DAILY #30 tab 02/10/22 06/04/22 Rx Pyridoxine [Vitamin B-6] 50 mg PO DAILY #30 tab 02/13/22 06/04/22 Rx Divalproex [Depakote] 1 each PO BID 04/11/22 06/04/22 History busPIRone HCl [Buspar] 10 mg PO TID 04/11/22 06/04/22 History Allergies Allergy/AdvReac Type Severity Reaction Status Date / Time No Known Allergies Allergy Verified 06/04/22 08:10 Physical Exam Vitals: Vital Signs Temp Pulse Pulse Pulse Resp BP BP 06/05/22 02:00 97.8 F 77 16 119/76 06/04/22 20:00 97.8 F 80 18 114/73 06/04/22 18:00 16 06/04/22 16:45 16 06/04/22 16:15 16 06/04/22 15:45 97.9 F 76 16 136/86 06/04/22 15:20 74 16 138/78 06/04/22 14:50 77 16 144/78 06/04/22 14:20 77 16 149/77 06/04/22 14:05 71 16 143/66 06/04/22 13:50 89 84 H 136/66 06/04/22 13:35 97.2 F L 83 16 138/65 06/04/22 09:43 72 16 132/82 Pulse Ox 06/05/22 02:00 96 06/04/22 20:00 96 06/04/22 18:00 97 06/04/22 16:45 98 06/04/22 16:15 99 06/04/22 15:45 99 06/04/22 15:20 97 06/04/22 14:50 98 06/04/22 14:20 99 06/04/22 14:05 99 06/04/22 13:50 100 06/04/22 13:35 97 06/04/22 09:43 97 Intake and Output 06/04/22 06/05/22 06/05/22 22:59 06:59 14:59 Intake Total 250 Output Total 20 Balance 230 Intake: IV 250 Output: Drainage 20 RIGHT CHADWICK DRAIN (SECOND) 10 Right 10 Other: # Voids 1 1 Weight 73 kg Results CBC & Chem 7: 06/05/22 07:37 Labs: Abnormal Lab Results - Last 24 Hours (Table) 06/05/22 Range/Units 07:37 WBC 15.2 H (3.8-10.6) k/uL Neutrophils # 10.7 H (1.3-7.7) k/uL
[2022-06-06] MEDS: HYDROmorphone 1 MG/ML 1 ML SYRINGE IVP PRN ×5 (01:18→14:16)
[2022-06-06] MEDS: HYDROcodone/APAP 5-325MG 1 EACH TAB PO PRN ×3 (02:33→10:31)
[2022-06-06] MEDS: HEPARIN SODIUM,PORCINE/PF 5,000 UNIT/0.5 ML SYRINGE SQ SCH ×2 (02:35→09:28)
[2022-06-06 04:43] VITALS: PULSE 96
[2022-06-06] MEDS: LEVOTHYROXINE 75 MCG TAB PO SCH (06:48)
[2022-06-06 08:02] VITALS: BP 115/75; RESP 16; TEMP 97.8
--- NOTE | 2022-06-06 08:21 | P.PN ---
Subjective Progress Note Date: 06/06/22 Principal diagnosis: right breast invasive ductal cancer; stage [id number]; stage 1B; POD #2 axillary node resection Kendra is a 62-year-old white female postop day #2 right mastectomy with axillary node sampling. Postoperatively she is doing well. She is tolerating diet without difficulty. Her pain is under control. Objective - Vital Signs Vital signs: Vital Signs Temp 97.8 F 06/06/22 07:59 Pulse 96 06/06/22 07:59 Resp 16 06/06/22 07:59 BP 115/75 06/06/22 07:59 Pulse Ox 98 06/06/22 07:59 FiO2 Intake & Output 06/05/22 06/06/22 06/06/22 18:59 06:59 18:59 Output Total 70 50 Balance -70 -50 Output: Drainage 70 50 RIGHT CHAD[place]ICK DRAIN (SECOND) 35 10 Right 35 40 Other: # Voids 3 1 - Constitutional General appearance: Present: cooperative - EENT Eyes: Present: EOMI ENT: Present: hearing grossly normal - Neck Neck: Present: normal ROM - Respiratory Respiratory: bilateral: CTA - Cardiovascular Heart sounds: normal: S1, S2 - Integumentary Integumentary Comment(s): Incision right chest wall clean and dry no evidence of infection or hematoma - Musculoskeletal Musculoskeletal: Present: gait normal - Psychiatric Psychiatric: Present: A&O x's 3, appropriate affect, intact judgment & insight - Labs CBC & Chem 7: 06/05/22 07:37 Assessment and Plan Assessment: Impression: Right breast invasive ductal carcinoma G3 ER/MS negative and HER-2 negative History of myocardial infarction Anxiety/depression/bipolar history of siezure Postop day #2 right breast mastectomy and sentinel node sampling Plan: Discharge home Teach patient and drain care Follow-up with Dr. Cho
--- NOTE | 2022-06-06 08:25 | P.DS ---
Providers Date of admission: 06/05/22 07:59 Attending physician: Alecia Davidson Consults: 06/04/22 13:24 Consult Physician Routine Consulting Provider: Derrick Crump Consult Reason/Comments: medical managment Do you want consulting provider notified?: Yes Primary care physician: [facility] Course: Kendra is a 62-year-old white female admitted to the hospital on [id number] with invasive ductal person, the right breast. She underwent a right mastectomy and axillary node sampling on that date. Postoperatively she did well. On the first postoperative day she had persistent pain and was kept for 1 more day. At this time she is doing well and is ready for discharge. Plan - Discharge Summary Discharge Rx Participant: Yes New Discharge Prescriptions: No Action Levothyroxine Sodium 150 mcg PO DAILY Gabapentin 800 mg PO BID Thiamine [Vitamin B-1] 100 mg PO DAILY #30 tab busPIRone HCl [Buspar] 10 mg PO TID Divalproex [Depakote] 1 each PO BID traZODone HCL [Desyrel] 100 mg PO HS Pyridoxine [Vitamin B-6] 50 mg PO DAILY #30 tab Discharge Medication List Gabapentin 800 mg PO BID 02/05/22 [History] Levothyroxine Sodium 150 mcg PO DAILY 02/05/22 [History] traZODone HCL [Desyrel] 100 mg PO HS 02/05/22 [History] Thiamine [Vitamin B-1] 100 mg PO DAILY #30 tab 02/10/22 [Rx] Pyridoxine [Vitamin B-6] 50 mg PO DAILY #30 tab 02/13/22 [Rx] Divalproex [Depakote] 1 each PO BID 04/11/22 [History] busPIRone HCl [Buspar] 10 mg PO TID 04/11/22 [History] Follow up Appointment(s)/Referral(s): Alecia Davidson MD [STAFF PHYSICIAN] - 06/21/22 12:20 pm [facility], [NON-STAFF] - 1 Week Activity/Diet/Wound Care/Special Instructions: Do not drive until seen by Dr. Cho Teach patient and drain care; drain and record amount from each drain twice a day and as needed Gopal wrap at all times over incision May shower after 48 hours from surgery Discharge Disposition: HOME SELF-CARE
[2022-06-06] MEDS: DIVALPROEX 250 MG TABLET.DR PO SCH (09:27)
[2022-06-06] MEDS: GABAPENTIN 400 MG CAP PO SCH ×2 (09:27→15:55)
[2022-06-06] MEDS: busPIRone HCl 10 MG TAB PO SCH ×2 (09:28→15:55)
--- NOTE | 2022-06-07 01:23 | P.PN ---
Subjective Progress Note Date: 06/06/22 - Reason for Consult Consult date: 06/05/22 Medical management, postop right mastectomy - History of Present Illness This is a pleasant 62-year-old female who was recently admitted under surgery services Dr. Marquis Elena and underwent right breast mastectomy postop day #1 with axillary node resection and biopsies sent. Patient with confirmed diagnosis in April after biopsy of right breast invasive ductal carcinoma stage I be grade 3. Patient reports she follows with Dr. Mallory in the outpatient setting with a past medical history of chronic back pain due to sciatica, hypothyroidism, myocardial infarction in 2009 with coronary artery disease, former smoker reporting she quit 2 weeks ago, and recently diagnosed in April with breast cancer on the right. Patient reports she uses marijuana occasionally and denies any other illicit drug or alcohol use. Patient does also report a history of anxiety with bipolar depression and takes Depakote. Patient reports she did require an receive presurgical screening and clearance from her primary care provider and also cardiology. Patient is reporting severe 10/10 pain and will continue with current pain regimen. Encouraged incentive spirometer use and education provided on how to properly use it and also encouraged increase activity as tolerated. Patient was on IV hydration recommending decreasing the dose as patient is eating and drinking with no difficulties. WBC elevated at 15.2 this morning although patient is afebrile denies shortness of breath or burning with urination. Possible reactivity due to recent surgery 06/06/2022 Patient is seen in follow-up today appears to be much more comfortable reporting her pain is more manageable. Patient reports she is being discharged today patient has been cleared by her surgeon for discharge and discuss with patient about recommending follow-up and compliance with medications. All medications have been reviewed and resumed patient is afebrile denies chest pain or shortness of breath. Patient reports passing gas with no bowel movement and reports to urinating with no difficulties. Patient with incentive spirometer at the bedside and encourage the patient to take home and continue using at least 10 times every hour while awake. Patient recently quit smoking 2 weeks ago and discuss with the patient about continuing to avoid tobacco use. Patient is tolerating diet nausea or vomiting noted. Review of systems: Constitutional: No reports of fatigue, fever, or chills Cardiovascular: No reports of chest pain or palpitations Respiratory: No reports of shortness of breath or cough GI: No reports of nausea, vomiting, or diarrhea : No reports of dysuria or retention Neurovascular: No reports of weakness or numbness PHYSICAL EXAMINATION: GENERAL: The patient is alert and oriented x4, Well developed, well nourished. HEENT: Pupils are round and equally reacting to light. EOMI. no scleral icterus. No conjunctival pallor. Normocephalic, atraumatic. No pharyngeal erythema. No thyromegaly. CARDIOVASCULAR: S1 and S2 muffled right breast surgical site dressing appears dry and intact and will defer exam to attending physician PULMONARY: Bilateral lung sounds clear to auscultation with no wheezing or rhonchi noted. ABDOMEN: soft. Nontender on exam. obese. non-distended, normoactive bowel sounds. No palpable organomegaly. MUSCULOSKELETAL: No joint swelling or deformity. EXTREMITIES: No cyanosis, clubbing, or pedal edema. NEUROLOGICAL: Gross neurological examination did not reveal any focal deficits. SKIN: No rashes. Assessment: Status post right breast mastectomy and sentinel node biopsy due to right breast invasive ductal carcinoma stage IB grade 3 Mild leukocytosis, likely reactive due to surgery History of coronary artery disease history of myocardial infarction Hypothyroidism History of anxiety/bipolar depression Former smoker, recently quit 2 weeks ago Occasional THC use GI prophylaxis DVT prophylaxis Full code Plan: Recommend to continue with current medications and management per surgery services Dr. Marquis Elena is admitting. She reports pain is better controlled and plans on being discharged today. Encouraged to continue current medications and follow-up outpatient with surgeon along with primary care provider. Patient encouraged to continue avoiding tobacco use and exposure. Encouraged increased activity as tolerated and continue with local wound care per surgery recommendations. Patient does have incentive spirometer at the bedside and encourage the patient to continue using at least 10 times every hour while awake and also to take home and continue using. We will continue to follow along with surgery during hospitalization. We would like to thank you kindly for this consultation. The impression and plan of care has been dictated by Deedee Gould, nurse practitioner as directed. Dr. Faheem ALFARO I have performed a history and examination and MDM of this patient, discussed the same with the dictator, and agree with the dictator's assessment and plan as written ,documented as a scribe. Based on total visit time, I have performed more than 50% of the visit. Any additional findings or plans will be noted. Objective - Vital Signs Vital signs: Vital Signs Temp 97.8 F 06/06/22 07:59 Pulse 96 06/06/22 07:59 Resp 16 06/06/22 07:59 BP 115/75 06/06/22 07:59 Pulse Ox 98 06/06/22 07:59 FiO2 Intake & Output 06/05/22 06/06/22 06/06/22 18:59 06:59 18:59 Output Total 70 50 Balance -70 -50 Output: Drainage 70 50 RIGHT CHADWICK DRAIN (SECOND) 35 10 Right 35 40 Other: # Voids 3 1 - Labs CBC & Chem 7: 06/05/22 07:37
== END 2022-06-06 16:15 | disposition home or self-care (01) ==
LOC: OR 07:11 → 4FBP 13:35 → OR 06-05 07:59 → 4FBP 06-05 07:59
PROVIDERS: ADMIT Surgery; ATTEND Surgery
DX: C50.211 Malignant neoplasm of upper-inner quadrant of right female breast (principal); F17.200 Nicotine dependence, unspecified, uncomplicated; I25.2 Old myocardial infarction; F41.9 Anxiety disorder, unspecified; F32.A Depression, unspecified; F31.9 Bipolar disorder, unspecified; G40.909 Epilepsy, unspecified, not intractable, without status epilepticus; E03.9 Hypothyroidism, unspecified; G25.81 Restless legs syndrome; F12.90 Cannabis use, unspecified, uncomplicated; D72.829 Elevated white blood cell count, unspecified; I25.10 Atherosclerotic heart disease of native coronary artery without angina pectoris; M54.40 Lumbago with sciatica, unspecified side; Z80.3 Family history of malignant neoplasm of breast; Z80.0 Family history of malignant neoplasm of digestive organs; Z98.51 Tubal ligation status; Z95.5 Presence of coronary angioplasty implant and graft; Z79.899 Other long term (current) drug therapy; Z79.890 Hormone replacement therapy; Z17.1 Estrogen receptor negative status [ER-]
CPT/HCPCS: 96372 ×2; 96374; 96376 ×2; 85025; 88342; 88307; 88341; 38792; 19307; G0378 ×2; A9520; J2250; J1100; J2405; J0690; J3010; J1170 ×4; J2704; J1644 ×3; J2001

== ENCOUNTER 2022-06-10 09:04 | Emergency (ER) | payer OTHER ==
[2022-06-10 09:34] VITALS: RESP 18
[2022-06-10] MEDS ORDERED: HYDROmorphone 0.5 MG/0.5 ML SYRINGE IM STA ×2 (10:14→12:03)
[2022-06-10] MEDS ORDERED: ONDANSETRON 4 MG/2 ML VIAL IM STA (10:15)
--- NOTE | 2022-06-10 10:56 | ED ---
General Adult HPI - General Chief complaint: Recheck/Abnormal Lab/Rx Stated complaint: Recent Mastectomy, Post Op Pain Time Seen by Provider: 06/10/22 10:08 Source: patient, RN notes reviewed Mode of arrival: wheelchair Limitations: no limitations - History of Present Illness Initial comments: 62 year old female presents to the emergency department for post operative pain. She is 6 days s/p R mastectomy and complains of worsening pain. She has been taking [place] without relief. She describes the pain as constant and throbbing. She states "I just feel like I have been hit by a truck." She called her surgeon who recommended she come here for pain management. Denies fatiue, Chest pain, palpitations, shortness of breath. - Related Data Home Medications Medication Instructions Recorded Confirmed Gabapentin 800 mg PO BID 02/05/22 06/04/22 Levothyroxine Sodium 150 mcg PO DAILY 02/05/22 06/04/22 traZODone HCL [Desyrel] 100 mg PO HS 02/05/22 06/04/22 Divalproex [Depakote] 1 each PO BID 04/11/22 06/04/22 busPIRone HCl [Buspar] 10 mg PO TID 04/11/22 06/04/22 Previous Rx's Medication Instructions Recorded Thiamine [Vitamin B-1] 100 mg PO DAILY #30 tab 02/10/22 Pyridoxine [Vitamin B-6] 50 mg PO DAILY #30 tab 02/13/22 HYDROcodone/APAP 7.5-325MG [[place] 1 tab PO Q6HR PRN 3 Days #12 tab 06/10/22 7.5-325] Allergies Allergy/AdvReac Type Severity Reaction Status Date / Time No Known Allergies Allergy Verified 06/10/22 09:34 Review of Systems ROS Statement: Those systems with pertinent positive or pertinent negative responses have been documented in the HPI. ROS Other: All systems not noted in ROS Statement are negative. Past Medical History Past Medical History: Coronary Artery Disease (CAD), Cancer, Myocardial Infarction ([place]), Thyroid Disorder Additional Past Medical History / Comment(s): Pt recently admitted to [facility] on 02/05/22 with AMS/visual and auditory hallucinations, possible UTI and left AMA. Other hx: Chronic low back pain, UTIs, hypothyroid, 5 miscarriages. Breast cancer Last Myocardial Infarction Date:: 2009 History of Any Multi-Drug Resistant Organisms: None Reported Past Surgical History: Back Surgery, Heart Catheterization With Stent, Tubal Ligation Additional Past Surgical History / Comment(s): 3 back surgeries with hardware, D&C. Past Anesthesia/Blood Transfusion Reactions: No Reported Reaction Date of Last Stent Placement:: 2009 at [facility] Past Psychological History: Anxiety, Bipolar, Depression Smoking Status: Former smoker Past Alcohol Use History: None Reported Past Drug Use History: None Reported - Past Family History Father History Unknown: Yes Additional Family Medical History / Comment(s): Father left family when pt was an infant. Mother History Unknown: Yes Additional Family Medical History / Comment(s): Mother when pt was a . General Exam Limitations: no limitations General appearance: alert, in no apparent distress Head exam: Present: atraumatic, normocephalic, normal inspection Eye exam: Present: normal appearance, PERRL, EOMI. Absent: scleral icterus, conjunctival injection, periorbital swelling ENT exam: Present: normal exam, mucous membranes moist Neck exam: Present: normal inspection. Absent: tenderness, meningismus, lymphadenopathy Respiratory exam: Present: normal lung sounds bilaterally. Absent: respiratory distress, wheezes, rales, rhonchi, stridor Cardiovascular Exam: Present: regular rate, other (R chest/breast region with surgical scar that appears to be healing well, no erythema, fluctuance, active draining. ) GI/Abdominal exam: Present: soft, normal bowel sounds. Absent: distended, tenderness, guarding, rebound, rigid Extremities exam: Present: normal inspection, full ROM, normal capillary refill. Absent: tenderness, pedal edema, joint swelling, calf tenderness Back exam: Present: normal inspection Neurological exam: Present: alert, oriented X3, CN II-XII intact Psychiatric exam: Present: normal affect, normal mood Skin exam: Present: warm, dry, intact, normal color. Absent: rash Course Vital Signs 06/10/22 06/10/22 09:31 12:24 Temperature 98.2 F 98.0 F Pulse Rate 83 72 Respiratory 18 18 Rate Blood Pressure 128/81 118/70 O2 Sat by Pulse 98 98 Oximetry Medical Decision Making - Medical Decision Making This is 62 a year old female presenting to the emergency department for post operative pain. Patient was seen and evaluated physical exam reveals right mastectomy incision which appears well healed. . Patient was given dilaudud with symptomatic relief in the ED. I discussed the results in detail with the patient and return precautions were discussed. Patient verbalized understanding and is agreeable with plan for discharge with follow up with her surgeon in 1-2 days. I discussed the case with Dr. Ulices ARITA who also evaluated the patient and agrees with plan for discharge. Disposition Clinical Impression: Post-operative pain Disposition: HOME SELF-CARE Condition: Stable Prescriptions: HYDROcodone/APAP 7.5-325MG [[place] 7.5-325] 1 tab PO Q6HR PRN 3 Days #12 tab PRN Reason: Pain Control Is patient prescribed a controlled substance at d/c from ED?: Yes Referrals: Alecia Davidson MD [STAFF PHYSICIAN] - 06/21/22 12:20 pm [facility], [NON-STAFF] - As Soon As Possible Sameera Oscar MD [Primary Care Provider] - 1-2 days Time of Disposition: 12:03
[2022-06-10 12:25] VITALS: BP 118/70; PULSE 72
[2022-06-10 12:27] VITALS: TEMP 98
== END 2022-06-10 12:29 | disposition home or self-care (01) ==
LOC: EC 09:04
DX: G89.18 Other acute postprocedural pain (principal); I25.10 Atherosclerotic heart disease of native coronary artery without angina pectoris; I25.2 Old myocardial infarction; E03.9 Hypothyroidism, unspecified; F41.9 Anxiety disorder, unspecified; Z87.891 Personal history of nicotine dependence; Z79.890 Hormone replacement therapy; Z79.899 Other long term (current) drug therapy
CPT/HCPCS: 99283; 96372 ×2; J2405; J1170

== ENCOUNTER 2022-06-13 12:47 | Emergency (ER) | payer OTHER ==
--- NOTE | 2022-06-13 13:48 | ED ---
General Adult HPI - General Source: patient, RN notes reviewed Mode of arrival: wheelchair Limitations: no limitations <Murray Lim - Last Filed: 06/13/22 13:46> <Shandra Villa - Last Filed: 06/13/22 19:10> - General Chief complaint: Recheck/Abnormal Lab/Rx Stated complaint: post mastectomy-pain Time Seen by Provider: 06/13/22 13:38 - History of Present Illness Initial comments: This a 62-year-old female presents emergency Department with chief complaint of postsurgical pain. Patient states that she had right mastectomy and lymph node removal by Dr. Marquis Elena 9 days ago. Patient states that she was receiving pain medications from emergency department. Patient states that she did follow- up after her surgery in the emergency department for pain control. She was discharged initially on [place] her primary care physician called her and Berino. She ran out of medication and was seen here and did receive a prescription for [place] again. She states there was only 3 day prescription and she is out. Patient had minimal improvement of her pain she states is still having significant right axilla pain. She has not had any recent lab work she has not had a follow-up appointment states she is scheduled next week for follow-up. No reports of fever she states she does have drains in which have been decreasing and output. (Murray Lim) - Related Data Home Medications Medication Instructions Recorded Confirmed Gabapentin 800 mg PO TID 02/05/22 06/13/22 traZODone HCL [Desyrel] 100 mg PO HS PRN 02/05/22 06/13/22 Divalproex [Depakote] 1 each PO BID 04/11/22 06/13/22 busPIRone HCl [Buspar] 10 mg PO TID PRN 04/11/22 06/13/22 Levothyroxine Sodium [Synthroid] 75 mcg PO DAILY 06/13/22 06/13/22 Previous Rx's Medication Instructions Recorded HYDROcodone/APAP 10-325MG [[place] 1 tab PO Q6HR PRN 3 Days #12 tab 06/13/22 10-325] Allergies Allergy/AdvReac Type Severity Reaction Status Date / Time codeine AdvReac Vomiting Verified 06/13/22 17:01 Review of Systems ROS Other: All systems not noted in ROS Statement are negative. <Murray Lim - Last Filed: 06/13/22 13:46> ROS Other: All systems not noted in ROS Statement are negative. <Shandra Villa - Last Filed: 06/13/22 19:10> ROS Statement: Those systems with pertinent positive or pertinent negative responses have been documented in the HPI. Past Medical History Past Medical History: Coronary Artery Disease (CAD), Cancer, Myocardial Infarction ([place]), Thyroid Disorder Additional Past Medical History / Comment(s): Pt recently admitted to [facility] on 02/05/22 with AMS/visual and auditory hallucinations, possible UTI and left AMA. Other hx: Chronic low back pain, UTIs, hypothyroid, 5 miscarriages. Breast cancer Last Myocardial Infarction Date:: 2009 History of Any Multi-Drug Resistant Organisms: None Reported Past Surgical History: Back Surgery, Heart Catheterization With Stent, Tubal Ligation Additional Past Surgical History / Comment(s): 3 back surgeries with hardware, D&C. Past Anesthesia/Blood Transfusion Reactions: No Reported Reaction Date of Last Stent Placement:: 2009 at [facility] Past Psychological History: Anxiety, Bipolar, Depression Smoking Status: Former smoker Past Alcohol Use History: None Reported Past Drug Use History: None Reported - Past Family History Father History Unknown: Yes Additional Family Medical History / Comment(s): Father left family when pt was an infant. Mother History Unknown: Yes Additional Family Medical History / Comment(s): Mother when pt was a . <Murray Lim - Last Filed: 06/13/22 13:46> General Exam Limitations: no limitations <Murray Lim - Last Filed: 06/13/22 13:46> General appearance: alert, in no apparent distress Head exam: Present: atraumatic, normocephalic, normal inspection Respiratory exam: Present: normal lung sounds bilaterally, chest wall tenderness (sutures and 2 [place] drains intact without surrounding erythema, swelling, warmth, drainage). Absent: respiratory distress, wheezes, rales, rhonchi, stridor Cardiovascular Exam: Present: regular rate, normal rhythm, normal heart sounds. Absent: systolic murmur, diastolic murmur, rubs, gallop, clicks GI/Abdominal exam: Present: soft, normal bowel sounds. Absent: distended, tenderness, guarding, rebound, rigid Neurological exam: Present: alert, oriented X3, CN II-XII intact Psychiatric exam: Present: normal affect, normal mood Skin exam: Present: warm, dry, intact, normal color. Absent: rash <Stuart Villaianna - Last Filed: 06/13/22 19:10> Course Vital Signs 06/13/22 06/13/22 13:12 17:48 Temperature 97.9 F 98.8 F Pulse Rate 91 80 Respiratory 16 18 Rate Blood Pressure 134/77 O2 Sat by Pulse 100 98 Oximetry Medical Decision Making - Lab Data Result diagrams: 06/13/22 14:15 06/13/22 14:15 <DaisyShandra - Last Filed: 06/13/22 19:10> - Medical Decision Making Was pt. sent in by a medical professional or institution? No Did you speak to anyone other than the patient for history? No Did you review nursing and triage notes? Yes, and I agree. Symptoms consistent with nursing and triage notes. Were old charts reviewed? Yes, and previously presented for pain control after mastectomy Differential Diagnosis? post-op pain, cellulitis EKG interpreted by me (3pts min.)? NA X-rays interpreted by me (1pt min.)? NA CT interpreted by me (1pt min.)? NA U/S interpreted by me (1pt. min.)? NA What testing was considered but not performed? (CT, X-rays, U/S, labs)? Why? None What meds were considered but not given? Why? None Did you discuss the management of the patient with other professionals? No Did you reconcile home meds? No, patient discharged. Was smoking cessation discussed for >3mins.? No Was critical care preformed (if so, how long)? No Were there social determinants of health that impacted care today? How? (Homelessness, low income, unemployed, alcoholism, drug addiction, transportation, low edu. Level, literacy, decrease access to med. care, skilled nursing, rehab)? No Was there de-escalation of care discussed even if they declined? (Discuss DNR or withdrawal of care, Hospice)? No What co-morbidities impacted this encounter? (DM, HTN, Smoking, COPD, CAD, Cancer, CVA, Hep., AIDS, mental health diagnosis, sleep apnea, morbid obesity)? No Was patient admitted / discharged? This is a 62-year-old female presenting with postop pain. I do believe patient is in a lot of pain. There is no evidence of cellulitis. Laboratory studies obtained which are relatively unremarkable. Pain controlled in the emergency department. Patient will be discharged with a short course of Berino as her surgeon is on vacation. Undiagnosed new problem with uncertain prognosis? No Drug Therapy requiring intensive monitoring for toxicity (Heparin, Nitro, Insulin, Cardizem)? No Were any procedures done? No Diagnosis/symptom? Post-op pain Acute, or Chronic, or Acute on Chronic? Acute Uncomplicated (without systemic symptoms) or Complicated (systemic symptoms)? Uncomplicated Side effects of treatment? No Exacerbation, Progression, or Severe Exacerbation] NA Poses a threat to life or bodily function? No Dr. Marinelli is my attending. (Shandra Villa) - Lab Data Lab Results 06/13/22 06/13/22 Range/Units 14:15 14:15 WBC 12.6 H (3.8-10.6) k/uL RBC 4.26 (3.80-5.40) m/uL Hgb 13.6 (11.4-16.0) gm/dL Hct 39.8 (34.0-46.0) % MCV 93.4 (80.0-100.0) fL MCH 31.8 (25.0-35.0) pg MCHC 34.0 (31.0-37.0) g/dL RDW 13.1 (11.5-15.5) % Plt Count 523 H (150-450) k/uL MPV 7.6 Neutrophils % 75 % Lymphocytes % 19 % Monocytes % 4 % Eosinophils % 1 % Basophils % 0 % Neutrophils # 9.4 H (1.3-7.7) k/uL Lymphocytes # 2.4 (1.0-4.8) k/uL Monocytes # 0.5 (0-1.0) k/uL Eosinophils # 0.1 (0-0.7) k/uL Basophils # 0.0 (0-0.2) k/uL Sodium 137 (137-145) mmol/L Potassium 4.8 (3.5-5.1) mmol/L Chloride 105 (98-107) mmol/L Carbon Dioxide 24 (22-30) mmol/L Anion Gap 8 mmol/L BUN 15 (7-17) mg/dL Creatinine 0.68 (0.52-1.04) mg/dL Est GFR (CKD-EPI)AfAm >90 (>60 ml/min/1.73 sqM) Est GFR (CKD-EPI)NonAf >90 (>60 ml/min/1.73 sqM) Glucose 99 (74-99) mg/dL Calcium 9.3 (8.4-10.2) mg/dL Total Bilirubin 0.3 (0.2-1.3) mg/dL AST 14 (14-36) U/L ALT 11 (4-34) U/L Alkaline Phosphatase 90 (38-126) U/L Total Protein 7.1 (6.3-8.2) g/dL Albumin 4.2 (3.5-5.0) g/dL Disposition <Murray Lim - Last Filed: 06/13/22 13:46> Is patient prescribed a controlled substance at d/c from ED?: No <Shandra Villa - Last Filed: 06/13/22 19:10> Clinical Impression: Post-op pain Disposition: HOME SELF-CARE Condition: Good Instructions (If sedation given, give patient instructions): Mastectomy (DC) Additional Instructions: Take medication as directed. Berino can be taken with Motrin for more pain relief. Please do not take Berino with additional Tylenol. Follow-up with oncologist as planned. Return to the emergency department experience new, concerning, or worsening symptoms Prescriptions: HYDROcodone/APAP 10-325MG [Berino 10-325] 1 tab PO Q6HR PRN 3 Days #12 tab PRN Reason: Pain Referrals: Sameera Oscar MD [Primary Care Provider] - 1-2 days
[2022-06-13 14:24] LABS: Basophils % (A) 0 %; Eosinophils # (A) 0.1 k/uL (0-0.7); Eosinophils % (A) 1 %; HCT 39.8 % (34.0-46.0); HGB 13.6 gm/dL (11.4-16.0); Lymphocytes # (A) 2.4 k/uL (1.0-4.8); Lymphocytes % (A) 19 %; MCH 31.8 pg (25.0-35.0); MCV 93.4 fL (80.0-100.0); Mean Platelet Volume 7.6; Monocytes # (A) 0.5 k/uL (0-1.0); Monocytes % (A) 4 %; Neutrophils # (A) 9.4 k/uL (1.3-7.7); Neutrophils % (A) 75 %; Platelet Count 523 k/uL (150-450); RBC 4.26 m/uL (3.80-5.40); RDW 13.1 % (11.5-15.5); WBC 12.6 k/uL (3.8-10.6)
[2022-06-13 14:46] LABS: ALT 11 U/L (4-34); AST 14 U/L (14-36); African American GFR (CKD) >90 (>60 ml/min/1.73 sqM); Albumin 4.2 g/dL (3.5-5.0); Alkaline Phosphatase 90 U/L (38-126); Anion Gap 8 mmol/L; Blood Urea Nitrogen 15 mg/dL (7-17); Calcium 9.3 mg/dL (8.4-10.2); Carbon Dioxide 24 mmol/L (22-30); Chloride 105 mmol/L (98-107); Glucose 99 mg/dL (74-99); Non-African American GFR(CKD) >90 (>60 ml/min/1.73 sqM); Potassium 4.8 mmol/L (3.5-5.1); Sodium 137 mmol/L (137-145); Total Bilirubin 0.3 mg/dL (0.2-1.3); Total Protein 7.1 g/dL (6.3-8.2)
[2022-06-13] MEDS ORDERED: HYDROmorphone 0.5 MG/0.5 ML SYRINGE IVP STA ×2 (14:53→17:11)
[2022-06-13] MEDS ORDERED: ONDANSETRON 4 MG/2 ML VIAL IVP STA (14:54)
[2022-06-13] MEDS ORDERED: SODIUM CHLORIDE 0.9% 1,000 ML IV STA (14:54)
[2022-06-13 17:50] VITALS: BP 134/77; PULSE 80; RESP 18; TEMP 98.8
== END 2022-06-13 17:48 | disposition home or self-care (01) ==
LOC: EC 12:47
DX: G89.18 Other acute postprocedural pain (principal); I25.10 Atherosclerotic heart disease of native coronary artery without angina pectoris; I25.2 Old myocardial infarction; E03.9 Hypothyroidism, unspecified; F41.9 Anxiety disorder, unspecified; F31.9 Bipolar disorder, unspecified; Z88.5 Allergy status to narcotic agent; Z79.890 Hormone replacement therapy; Z79.899 Other long term (current) drug therapy
CPT/HCPCS: 36415; 80053; 85025; 99283; 96374; 96376; 96375; 96361; J2405; J1170

== ENCOUNTER 2022-06-18 12:15 | Observation (INO) | payer OTHER ==
[2022-06-18] MEDS ORDERED: MORPHINE SULFATE 4 MG/ML SYRINGE IM STA (12:55)
--- NOTE | 2022-06-18 12:55 | ED ---
General Adult HPI - General Chief complaint: Recheck/Abnormal Lab/Rx Stated complaint: R sided abd pain Time Seen by Provider: 06/18/22 12:22 Source: patient, EMS, RN notes reviewed, old records reviewed Mode of arrival: EMS Limitations: no limitations - Related Data Home Medications Medication Instructions Recorded Confirmed Gabapentin 800 mg PO TID 02/05/22 06/13/22 traZODone HCL [Desyrel] 100 mg PO HS PRN 02/05/22 06/13/22 Divalproex [Depakote] 1 each PO BID 04/11/22 06/13/22 busPIRone HCl [Buspar] 10 mg PO TID PRN 04/11/22 06/13/22 Levothyroxine Sodium [Synthroid] 75 mcg PO DAILY 06/13/22 06/13/22 Previous Rx's Medication Instructions Recorded HYDROcodone/APAP 10-325MG [[place] 1 tab PO Q6HR PRN 3 Days #12 tab 06/13/22 10-325] Allergies Allergy/AdvReac Type Severity Reaction Status Date / Time codeine AdvReac Vomiting Verified 06/13/22 17:01 Review of Systems ROS Statement: Those systems with pertinent positive or pertinent negative responses have been documented in the HPI. ROS Other: All systems not noted in ROS Statement are negative. Past Medical History Past Medical History: Coronary Artery Disease (CAD), Cancer, Myocardial Infarction ([place]), Thyroid Disorder Additional Past Medical History / Comment(s): Pt recently admitted to [facility] on 02/05/22 with AMS/visual and auditory hallucinations, possible UTI and left AMA. Other hx: Chronic low back pain, UTIs, hypothyroid, 5 miscarriages. Breast cancer Last Myocardial Infarction Date:: 2009 History of Any Multi-Drug Resistant Organisms: None Reported Past Surgical History: Back Surgery, Heart Catheterization With Stent, Tubal Ligation Additional Past Surgical History / Comment(s): 3 back surgeries with hardware, D&C., lymph node removal Past Anesthesia/Blood Transfusion Reactions: No Reported Reaction Date of Last Stent Placement:: 2009 at [facility] Past Psychological History: Anxiety, Bipolar, Depression Smoking Status: Former smoker Past Alcohol Use History: None Reported Past Drug Use History: None Reported - Past Family History Father History Unknown: Yes Additional Family Medical History / Comment(s): Father left family when pt was an infant. Mother History Unknown: Yes Additional Family Medical History / Comment(s): Mother when pt was a . General Exam Limitations: no limitations Course Vital Signs 06/18/22 06/18/22 12:16 13:22 Temperature 98.3 F Pulse Rate 71 79 Respiratory 18 18 Rate Blood Pressure 132/74 O2 Sat by Pulse 99 98 Oximetry Disposition Clinical Impression: Pain, postoperative, acute Disposition: ADMITTED IP TO THIS [facility] Condition: Stable Referrals: Sameera Oscar MD [Primary Care Provider] - 1-2 days Time of Disposition: 13:32
[2022-06-18 13:42] LABS: Appearance,Urine Clear (Clear); Bilirubin,Urine Negative (Negative); Blood,Urine Small (Negative); Color,Urine Yellow; Glucose,Urine (UA) Negative (Negative); Ketones,Urine 1+ (Negative); Leukocyte Esterase,Urine Small (Negative); Mucus,Urine Rare /hpf; Nitrite,Urine Negative (Negative); Protein,Urine Negative (Negative); RBC,Urine 4 /hpf (0-5); Specific Gravity,Urine 1.011 (1.001-1.035); Squamous Epithelial Cell,Urine <1 /hpf (0-4); Urobilinogen,Urine <2.0 mg/dL (<2.0); WBC,Urine 3 /hpf (0-5)
[2022-06-18] MEDS ORDERED: busPIRone HCl 10 MG TAB PO PRN (14:57)
[2022-06-18] MEDS ORDERED: traZODone HCL 100 MG TAB PO PRN (14:57)
[2022-06-18] MEDS: IBUPROFEN 800 MG TAB PO SCH ×2 (16:39→23:24)
[2022-06-18] MEDS: GABAPENTIN 400 MG CAP PO SCH ×2 (16:40→22:32)
[2022-06-18] MEDS: oxyCODONE-APAP 10-325MG 1 EACH TAB PO PRN ×2 (16:40→23:23)
[2022-06-18] MEDS: HYDROmorphone 0.5 MG/0.5 ML SYRINGE IVP PRN ×2 (18:29→22:33)
[2022-06-18] MEDS: KETOROLAC 15 MG/ML 1 ML VIAL IVP SCH (18:39)
[2022-06-18] MEDS: DIVALPROEX ER 250 MG TAB.ER.24H PO SCH (21:31)
--- NOTE | 2022-06-18 23:24 | P.HPIM ---
History of Present Illness H&P Date: 06/18/22 Chief Complaint: Postoperative pain 62-year-old female presents emergency Department with chief complaint of postsurgical pain. Patient states that she had right mastectomy and lymph node removal by Dr. Marquis Elena 9 days ago. Patient states that she was receiving pain medications from emergency department. Patient states that she did follow- up after her surgery in the emergency department for pain control. She was discharged initially on [place] her primary care physician called her and [place]. She ran out of medication and was seen here and did receive a prescription for [place] again. She states there was only 3 day prescription and she is out. Patient had minimal improvement of her pain she states is still having significant right axilla pain. She has not had any recent lab work she has not had a follow-up appointment states she is scheduled next week for follow-up. No reports of fever she states she does have drains in which have been decreasing and output. Patient has had multiple visits to the ER for same concerns and is admitted to the hospital for intractable pain control Review of Systems REVIEW OF SYSTEMS: CONSTITUTIONAL: No fever, no malaise, no fatigue. HEENT: No recent visual problems or hearing problems. Denied any sore throat. CARDIOVASCULAR: No chest pain, orthopnea, PND, no palpitations, no syncope. PULMONARY: No shortness of breath, no cough, no hemoptysis. GASTROINTESTINAL: No diarrhea, no nausea, no vomiting, no abdominal pain. NEUROLOGICAL: No headaches, no weakness, no numbness. HEMATOLOGICAL: Denies any bleeding or petechiae. GENITOURINARY: Denies any burning micturition, frequency, or urgency. MUSCULOSKELETAL/RHEUMATOLOGICAL: Denies any joint pain, swelling, or any muscle pain. ENDOCRINE: Denies any polyuria or polydipsia. The rest of the 14-point review of systems is negative. Past Medical History Past Medical History: Coronary Artery Disease (CAD), Cancer, Myocardial Infarction ([place]), Thyroid Disorder Additional Past Medical History / Comment(s): Pt recently admitted to [facility] on 02/05/22 with AMS/visual and auditory hallucinations, possible UTI and left AMA. Other hx: Chronic low back pain, UTIs, hypothyroid, 5 miscarriages. Breast cancer Last Myocardial Infarction Date:: 2009 History of Any Multi-Drug Resistant Organisms: None Reported Past Surgical History: Back Surgery, Heart Catheterization With Stent, Tubal Ligation Additional Past Surgical History / Comment(s): 3 back surgeries with hardware, D&C., lymph node removal Past Anesthesia/Blood Transfusion Reactions: No Reported Reaction Date of Last Stent Placement:: 2009 at [facility] Past Psychological History: Anxiety, Bipolar, Depression Smoking Status: Former smoker Past Alcohol Use History: None Reported Past Drug Use History: None Reported - Past Family History Father History Unknown: Yes Additional Family Medical History / Comment(s): Father left family when pt was an . Mother History Unknown: Yes Additional Family Medical History / Comment(s): Mother when pt was a . Medications and Allergies Home Medications Medication Instructions Recorded Confirmed Type Gabapentin 800 mg PO TID 02/05/22 06/18/22 History traZODone HCL [Desyrel] 100 mg PO HS PRN 02/05/22 06/18/22 History busPIRone HCl [Buspar] 10 mg PO TID PRN 04/11/22 06/18/22 History Levothyroxine Sodium [Synthroid] 75 mcg PO DAILY 06/13/22 06/18/22 History Divalproex ER [Depakote ER] 250 mg PO BID 06/18/22 06/18/22 History HYDROcodone/APAP 5-325MG [[place] 1 tab PO Q6H PRN 06/18/22 06/18/22 History 5-325] Ibuprofen [Motrin] 800 mg PO Q8H 06/18/22 06/18/22 History Allergies Allergy/AdvReac Type Severity Reaction Status Date / Time codeine AdvReac Vomiting Verified 06/18/22 13:47 Physical Exam Vitals: Vital Signs Temp Pulse Resp BP Pulse Ox 06/18/22 13:22 79 18 98 06/18/22 12:16 98.3 F 71 18 132/74 99 Intake and Output 06/17/22 06/18/22 06/18/22 22:59 06:59 14:59 Other: Weight 72.575 kg PHYSICAL EXAMINATION: GENERAL: The patient is alert and oriented x3, not in any acute distress. Well developed, well nourished. HEENT: Pupils are round and equally reacting to light. EOMI. No scleral icterus. No conjunctival pallor. Normocephalic, atraumatic. No pharyngeal erythema. No thyromegaly. CARDIOVASCULAR: S1 and S2 present. No murmurs, rubs, or gallops. PULMONARY: Chest is clear to auscultation, no wheezing or crackles. ABDOMEN: Soft, nontender, nondistended, normoactive bowel sounds. No palpable organomegaly. MUSCULOSKELETAL: No joint swelling or deformity. EXTREMITIES: No cyanosis, clubbing, or pedal edema. NEUROLOGICAL: Gross neurological examination did not reveal any focal deficits. SKIN: No rashes. Results Labs: Abnormal Lab Results - Last 24 Hours (Table) 06/18/22 Range/Units 13:21 Urine Ketones 1+ H (Negative) Urine Blood Small H (Negative) Ur Leukocyte Esterase Small H (Negative) Urine Mucus Rare H (None) /hpf Assessment and Plan Assessment: 1. Intractable postoperative pain - Patient has had multiple visits to ED for same concern; operation site looks clean without any suspicion of infection or abscess - Patient reports she only gets relief from IV Dilaudid; has been taking [place] at home and finished pain medication supply. Then prescribed - We will start patient on oxycodone 10 mg every 6 hours when necessary with IV Dilaudid 0.5 mg every 4 hours when necessary - Consult palliative care for pain control 2. Coronary artery disease 3. Hypothyroidism; levothyroxine 75 MCG daily 4. Insomnia/sleep disorder; trazodone 100 mg by mouth daily at bedtime 5. Anxiety/depression; patient takes Depakote along with BuSpar and trazodone; Neurontin 800 mg by mouth 3 times a day DVT prophylaxis; SCDs CODE STATUS; full code
[2022-06-19] MEDS: KETOROLAC 15 MG/ML 1 ML VIAL IVP SCH ×5 (00:32→23:08)
[2022-06-19] MEDS: HYDROmorphone 0.5 MG/0.5 ML SYRINGE IVP PRN ×4 (02:34→20:11)
[2022-06-19] MEDS: LEVOTHYROXINE 75 MCG TAB PO SCH (06:43)
[2022-06-19] MEDS: IBUPROFEN 800 MG TAB PO SCH ×2 (08:07→15:00)
[2022-06-19] MEDS: oxyCODONE-APAP 10-325MG 1 EACH TAB PO PRN ×2 (08:12→17:01)
[2022-06-19] MEDS: GABAPENTIN 400 MG CAP PO SCH ×3 (09:28→21:53)
[2022-06-19] MEDS: DIVALPROEX ER 250 MG TAB.ER.24H PO SCH ×2 (09:29→20:12)
--- NOTE | 2022-06-19 12:22 | P.PN ---
Progress Note - Text Progress Note Date: 06/19/22 Spoke with Deedee Gould NP. Suggested a follow up with her surgeon or a pain service consult. The patient is POD #10 from a right mastectomy, sentinel node biopsy, and lower level sentinel node resection. She has been to the emergency department 3 times since then with incisional pain. She was initially discharged home on [place] 5/325. Then after her first emergency room visit was sent home with 3 days worth of [place] 7.5/325. Her second emergency room visit she was given Dilaudid and sent home with a prescription for 3 days of [place] 10/325. Now, this admission she on Percocet 10/325, Dilaudid, and Toradol for pain control. Debbie Chapman [facility] Palliative Care/[email or web address] [id number] Email: [email or web address]
--- NOTE | 2022-06-19 16:13 | P.PAINPG ---
Objective - Vital Signs Vital signs: Vital Signs Temp 97.8 F 06/19/22 09:45 Pulse 75 06/19/22 09:45 Resp 16 06/19/22 09:45 BP 118/75 06/19/22 09:45 Pulse Ox 97 06/19/22 09:45 FiO2 Intake & Output 06/18/22 06/19/22 06/19/22 18:59 06:59 18:59 Intake Total 360 Output Total 5 Balance -5 360 Weight 72.575 kg Intake: Oral 360 Output: Drainage 5 Right Breast/Axilla 0 Right Breast/Axilla #2 5 Other: # Voids 1 PQRS Measure Charge Sheet Comment: HISTORY OF PRESENT ILLNESS: 62 yr old inpatient female as a referral from [facility] presents today w severe and chronic R axilla pain secondary to R breast masectomy and sentinel node resection 10 days ago for evaluation. Pt states pain level is at 10 /10 in intensity, constant, localized in the R axillae and R thorax, achy/ throbbing/ sharp/ sore in character w shooting pain towards the R flank. Pain is provoked by any movement. Pain is alleviated slightly by [place] 10/325mg which was re ordered days ago TID but is finished. Pt would like medication pain management. Past Medical History: Coronary Artery Disease (CAD), Cancer, Myocardial Infarction ([place]), Thyroid Disorder Additional Past Medical History / Comment(s): Pt recently admitted to [facility] on 02/05/22 with AMS/visual and auditory hallucinations, possible UTI and left AMA. Other hx: Chronic low back pain, UTIs, hypothyroid, 5 miscarriages. Breast cancer Last Myocardial Infarction Date:: 2009 History of Any Multi-Drug Resistant Organisms: None Reported Past Surgical History: Back Surgery, Heart Catheterization With Stent, Tubal Ligation Additional Past Surgical History / Comment(s): 3 back surgeries with hardware, D&C., lymph node removal Past Anesthesia/Blood Transfusion Reactions: No Reported Reaction Date of Last Stent Placement:: 2009 at [facility] Past Psychological History: Anxiety, Bipolar, Depression Smoking Status: Former smoker Past Alcohol Use History: None Reported Past Drug Use History: None Reported - Past Family History Father History Unknown: Yes Additional Family Medical History / Comment(s): Father left family when pt was an infant. Mother History Unknown: Yes Additional Family Medical History / Comment(s): Mother when pt was a . REVIEW OF ORGAN SYSTEMS: CONSTITUTIONAL: No fevers or chills. No recent weight loss. NEUROLOGICAL: + numbness and tingling along the distal extremities. No seizure disorders or headaches. MUSCULOSKELETAL: + pain PSYCHIATRIC: Denies current depression or suicidal thoughts. Physical Examinations : Constitutional : Cooperative , not in acute distress . Neurologic : Cranial nerve II to XII intact. No focal neurological deficits. Psychiatric : alert & oriented x 3. Matching mood & appropriate affect. Judgment & insight intact. Musculoskeletal : Erythema, Edema over Chest Wall w 12" horizontal incisional scar /Dressing Intact Cervical Spine Motor strength in the deltoid and biceps: Normal right side. Normal Left side Motor strength biceps and the wrist extensors: Normal right side . Normal left side Motor strength in the triceps muscle: Normal right side. Normal left side Deep tendon reflexes: Normal at the biceps. Normal at Brachioradialis. Normal at triceps Vertebral body tenderness to deep palpation over Cervical facet loading test: positive bilaterally Spurling test: positive bilaterally Neck distraction test: positive bilaterally Layo sign: positive bilaterally Lumbar spine Motor strength lower extremities ,thigh and legs 5/5 Right side , 5/5 Left side Deep tendon reflexes : Normal Knee Jerk. Normal Ankle Jerk Vertebral body tenderness over Lumbar facet Loading Test: positive Right / positive Left Range of motion of the lumbar spine Flexion 30 degrees, extension 10 degrees Straight Leg Raise test: Left/ Right positive at degree Harriett test: positive right / positive left. Severe tenderness over the Sacroiliac joint on the Right / Left sides Gaenslen test: positive bilaterally Seated flexion test: positive bilaterally. Sacral spine : Severe tenderness over the Sacroiliac joint: right side / left side Range of motion: Flexion of the lumbar spine <60 degrees Range of motion: Extension of the lumbar spine <20 degrees Gaenslen's Test positive Khris's Test positive Harriett test: positive right side / left side Thigh Thrust Test Sacral Thrust Test Assessment/ Plan : R Axilla Pain secondary to R breast masectomy, R sentinel node resection Pt is agreeable to medication management. Dilaudid 0.5mg IVP q4h prn severe pain. Also, Percocet 10/325mg q6h prn moderate pain. Ibuprofen 800mg TIDWM prn pain. All questions answered. Will continue to monitor patient as needed. I have spent greater than 30 minutes on patient care today. Dr Bhatt was available by phone for the evaluation of this patient. The time was used to review the medical records including relevant urine studies and Prescription history (MAPs), review of the available imaging, evaluation and examination of the patient, coordination of care with the medical staff and if applicable referring physicians, as well as creation of the medical record - Pain Location Right Breast Non-Pharmacological Interventions: Darkened Room, Distraction, Home Exercise, Reduce Environmental Stimuli, Relaxation Technique, Stretching Pharmacological Interventions: PRN Medication, Scheduled Medication PQRS Narrative: Blood Pressure [Left Arm] 118/75 Blood Pressure 127/62 Pain Intensity [Right Breast] 5 Pain Intensity 5 Pain Scale Used Numeric (1 - 10) Scale Used Numeric (1 - 10) Home Medications: Ambulatory Orders Gabapentin 800 mg PO TID 02/05/22 traZODone HCL [Desyrel] 100 mg PO HS PRN 02/05/22 busPIRone HCl [Buspar] 10 mg PO TID PRN 04/11/22 Levothyroxine Sodium [Synthroid] 75 mcg PO DAILY 06/13/22 Divalproex ER [Depakote ER] 250 mg PO BID 06/18/22 HYDROcodone/APAP 5-325MG [[place] 5-325] 1 tab PO Q6H PRN 06/18/22 Ibuprofen [Motrin] 800 mg PO Q8H 06/18/22 Controlled Substance Measures - Controlled Substance Measures Is patient prescribed a controlled substance at discharge?: No
--- NOTE | 2022-06-19 17:29 | P.PN ---
Subjective Progress Note Date: 06/19/22 62-year-old female presents emergency Department with chief complaint of postsurgical pain. Patient states that she had right mastectomy and lymph node removal by Dr. Marquis Elena 9 days ago. Patient states that she was receiving pain medications from emergency department. Patient states that she did follow- up after her surgery in the emergency department for pain control. She was discharged initially on 5/325 [place] her primary care physician called her and 10/325 [place]. She ran out of medication and was seen here and did receive a prescription for [place] again. She states there was only 3 day prescription and she is out. Patient had minimal improvement of her pain she states is still having significant right axilla pain. She has not had any recent lab work she has not had a follow-up appointment states she is scheduled next week for follow-up. No reports of fever she states she does have drains in which have been decreasing and output. Patient has had multiple visits to the ER for same concerns and is admitted to the hospital for intractable pain control -- Patient continues to ask for IV Dilaudid; reports oxycodone is ineffective -- Pain management is consulted and recommending to continue with IV Dilaudid 0.5 mg every 4 hours when necessary for severe pain, Percocet 10/25 mg every 6 hours when necessary for moderate pain, continue with ibuprofen 800 mg 3 times a day when necessary; pain management will follow-up and make changes as needed Objective - Vital Signs Vital signs: Vital Signs Temp 97.8 F 06/19/22 09:45 Pulse 75 06/19/22 09:45 Resp 16 06/19/22 09:45 BP 118/75 06/19/22 09:45 Pulse Ox 97 06/19/22 09:45 FiO2 Intake & Output 06/18/22 06/19/22 06/19/22 18:59 06:59 18:59 Intake Total 780 Output Total 5 Balance -5 780 Weight 72.575 kg Intake: Oral 780 Output: Drainage 5 Right Breast/Axilla 0 Right Breast/Axilla #2 5 Other: # Voids 1 - Exam GENERAL: The patient is alert and oriented x3, not in any acute distress. Well developed, well nourished. HEENT: Pupils are round and equally reacting to light. EOMI. No scleral icterus. No conjunctival pallor. Normocephalic, atraumatic. No pharyngeal erythema. No thyromegaly. CARDIOVASCULAR: S1 and S2 present. No murmurs, rubs, or gallops. PULMONARY: Chest is clear to auscultation, no wheezing or crackles. ABDOMEN: Soft, nontender, nondistended, normoactive bowel sounds. No palpable organomegaly. MUSCULOSKELETAL: No joint swelling or deformity. EXTREMITIES: No cyanosis, clubbing, or pedal edema. NEUROLOGICAL: Gross neurological examination did not reveal any focal deficits. SKIN: No rashes. Assessment and Plan Assessment: 1. Intractable postoperative pain - Patient has had multiple visits to ED for same concern; operation site looks clean without any suspicion of infection or abscess - Patient reports she only gets relief from IV Dilaudid; has been taking [place] at home and finished pain medication supply. Then prescribed - We will start patient on oxycodone 10 mg every 6 hours when necessary with IV Dilaudid 0.5 mg every 4 hours when necessary - Consult palliative care for pain control 2. Coronary artery disease 3. Hypothyroidism; levothyroxine 75 MCG daily 4. Insomnia/sleep disorder; trazodone 100 mg by mouth daily at bedtime 5. Anxiety/depression; patient takes Depakote along with BuSpar and trazodone; Neurontin 800 mg by mouth 3 times a day DVT prophylaxis; SCDs CODE STATUS; full code
[2022-06-20] MEDS: IBUPROFEN 800 MG TAB PO SCH ×4 (00:08→23:11)
[2022-06-20] MEDS: HYDROmorphone 0.5 MG/0.5 ML SYRINGE IVP PRN ×6 (00:09→21:57)
[2022-06-20] MEDS: oxyCODONE-APAP 10-325MG 1 EACH TAB PO PRN ×4 (02:31→22:42)
[2022-06-20] MEDS: LEVOTHYROXINE 75 MCG TAB PO SCH (06:09)
[2022-06-20] MEDS: KETOROLAC 15 MG/ML 1 ML VIAL IVP SCH ×4 (06:10→23:11)
[2022-06-20] MEDS: GABAPENTIN 400 MG CAP PO SCH ×3 (08:33→20:30)
[2022-06-20] MEDS: DIVALPROEX ER 250 MG TAB.ER.24H PO SCH ×2 (08:34→20:29)
--- NOTE | 2022-06-20 12:03 | P.PN ---
Subjective 62-year-old female presents emergency Department with chief complaint of postsurgical pain. Patient states that she had right mastectomy and lymph node removal by Dr. Marquis Elena 9 days ago. Patient states that she was receiving pain medications from emergency department. Patient states that she did follow- up after her surgery in the emergency department for pain control. She was discharged initially on 325 [place] her primary care physician called her and [place]. She ran out of medication and was seen here and did receive a prescription for [place] again. She states there was only 3 day prescription and she is out. Patient had minimal improvement of her pain she states is still having significant right axilla pain. She has not had any recent lab work she has not had a follow-up appointment states she is scheduled next week for follow-up. No reports of fever she states she does have drains in which have been decreasing and output. Patient has had multiple visits to the ER for same concerns and is admitted to the hospital for intractable pain control -- Patient continues to ask for IV Dilaudid; reports oxycodone is ineffective -- Pain management is consulted and recommending to continue with IV Dilaudid 0.5 mg every 4 hours when necessary for severe pain, Percocet 10/25 mg every 6 hours when necessary for moderate pain, continue with ibuprofen 800 mg 3 times a day when necessary; pain management will follow-up and make changes as needed 06/20/2022 Patient a pleasant 62 years old female who is status post right mastectomy and difficult dissection and the arm prompting presents with worsening patent, more in the armpit. Then the breast area, his surgical wound is closed with nirav and a Place, also it has drains with minimal bloody discharge, Patient says that her pain today is 6/10, I discussed with the patient the goal of pain management as well as the risk of opioid medication including but not l imited to the risk of addiction, respiratory depression and/or and she verbalized understanding and acceptance to start tapering her medication down, she agrees for lower Dilaudid home every 4 hours down to every 6 hours starts in today. We will try to taper down even more tomorrow. Pain management service on the case. Also patient is on Percocet and other pain medication Vitals are stable We will check basic metabolic panel as she is on NSAIDs Consult MATERIALS BU[employer]ER today to take drains out and to look into the wound Objective - Vital Signs Vital signs: Vital Signs Temp 98 F 06/20/22 07:00 Pulse 70 06/20/22 07:00 Resp 18 06/20/22 07:00 BP 113/76 06/20/22 07:00 Pulse Ox 99 06/20/22 07:00 FiO2 Intake & Output 06/19/22 06/20/22 06/20/22 18:59 06:59 18:59 Intake Total 780 Output Total 10 Balance 780 -10 Intake: Oral 780 Output: Drainage 10 Right Breast/Axilla 0 Right Breast/Axilla #2 10 Other: # Voids 2 - Exam GENERAL: The patient is alert and oriented x3, not in any acute distress. Well developed, well nourished. -HEENT: Pupils are round and equally reacting to light. EOMI. No scleral icterus. No conjunctival pallor. Normocephalic, atraumatic. No pharyngeal erythema. No thyromegaly. Right mastectomy wound is closed with this in a Place, no cellulitis or purulent discharge CARDIOVASCULAR: S1 and S2 present. No murmurs, rubs, or gallops. PULMONARY: Chest is clear to auscultation, no wheezing or crackles. ABDOMEN: Soft, nontender, nondistended, normoactive bowel sounds. No palpable organomegaly. MUSCULOSKELETAL: No joint swelling or deformity. EXTREMITIES: No cyanosis, clubbing, or pedal edema. NEUROLOGICAL: Gross neurological examination did not reveal any focal deficits. SKIN: No rashes. no petechiae. Assessment and Plan Assessment: 1. Intractable postoperative pain at right mastectomy surgical wound and right armpit site - Patient has had multiple visits to ED for same concern; operation site looks clean without any suspicion of infection or abscess - Pain management service on the case, - We will start patient on oxycodone 10 mg every 6 hours when necessary with IV Dilaudid 0.5 mg every 4 hours when necessary, patient is agreeable to de- escalate Dilaudid 2 every 6 hours - Consult MATERIALS BUYER for postop mastectomy and wound management 2. Coronary artery disease 3. Hypothyroidism; levothyroxine 75 MCG daily 4. Insomnia/sleep disorder; trazodone 100 mg by mouth daily at bedtime 5. Anxiety/depression; patient takes Depakote along with BuSpar and trazodone; Neurontin 800 mg by mouth 3 times a day DVT prophylaxis; SCDs, subcutaneous heparin GI prophylaxis: Pepcid CODE STATUS; full code
[2022-06-20 15:12] LABS: African American GFR (CKD) >90 (>60 ml/min/1.73 sqM); Anion Gap 7 mmol/L; Blood Urea Nitrogen 9 mg/dL (7-17); Calcium 8.7 mg/dL (8.4-10.2); Carbon Dioxide 25 mmol/L (22-30); Chloride 104 mmol/L (98-107); Glucose 100 mg/dL (74-99); Non-African American GFR(CKD) >90 (>60 ml/min/1.73 sqM); Potassium 4.8 mmol/L (3.5-5.1); Sodium 136 mmol/L (137-145)
--- NOTE | 2022-06-20 17:18 | P.GSHP ---
History of Present Illness H&P Date: 06/20/22 Chief Complaint: right breast invasive ductal carcinoma stage IB Sincere is a 62-year-old white female who was seen in consultation for Dr. Abhishek Che. Regarding a biopsy-proven right breast invasive ductal carcinoma. She had undergone a bilateral screening mammogram on 102 622. A 1.1 cm lesion was noted at the 12 o'clock position of the right breast. An ultrasound was recommended. This was performed on the same date revealed 0.8 x 0.8 cm lesion for which core biopsy was recommended. This was performed on . Pathology revealed a grade 3 invasive ductal carcinoma. This was triple negative. The patient did not feel any lumps masses or nodules of concern in the breast. However she had felt some pain in the midportion of the right breast and that is what initiated the evaluation. She had not had any mammogram in the past and this was her first mammogram. She not had any surgery in either breast. She had not had any trauma or infection of the breast. Her case was presented at tumor board on [id number]. The patient did not have genetic testing performed. She declined chemotherapy. She wishes to have a right mastectomy and a right sentinel node biopsy. The patient received preoperative clearance prior to her procedure. 11 days ago she underwent a right mastectomy and axillary node sampling. Postprocedure she did well and was discharged home on the second postoperative day. Following discharge she made several trips back to the emergency department requesting pain medications. There was no evidence of any infection or hematoma at any time related to the surgery. She was requesting IV Dilaudid. Home health care was consulted to follow with the patient. After she arrived at home she canceled the home health care. Secondary to the multiple trips to the emergency room she was admitted for pain management. She stated that initially the pain was in the entire incision and that now it is concentrated more to the posterior axillary area. She had [address] with minimal output. 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 Family history: Paternal aunt: Breast cancer Mother: Pancreatic cancer at 44, mother at her , father when she was 13 Hormonal history: Menarche: 12 T7 P25, press-fit: Yes, age of first 29 secondary that 40 Menopause: 52 control pills: 2 years in her 20s Surgical history: 3 pack surgeries D&C Cardiac stent Medical history: [place] Depression/anxiety, bipolar History of seizure disorder Social history: Nicotine: One half pack per day since 15 Alcohol: Negative Drugs: Marijuana occasionally - Constitutional Constitutional: Denies chills, Denies fever - EENT Eyes: denies blurred vision, denies pain Ears: deny: decreased hearing, tinnitus Ears, nose, mouth and throat: Denies headache, Denies sore throat - Breasts Breasts: bilateral: as per HPI - Cardiovascular Cardiovascular: Reports as per HPI - Respiratory Respiratory: Denies cough, Denies 7 - Gastrointestinal Gastrointestinal: Denies abdominal pain, Denies diarrhea, Denies nausea, Denies vomiting - Genitourinary (Female) Genitourinary: Denies dysuria, Denies hematuria - Menstruation Menstruation: Reports postmenopausal - Musculoskeletal Musculoskeletal: Denies myalgias - Integumentary Integumentary: Denies pruritus, Denies rash - Neurological Neurological: Denies numbness, Denies weakness - Psychiatric Psychiatric: Reports as per HPI, Reports anxiety, Reports depression - Endocrine Endocrine: Denies fatigue, Denies weight change - Hematologic/Lymphatic Comment: none - Allergic/Immunologic Allergic/Immunologic: Reports as per HPI Past Medical History Past Medical History: Coronary Artery Disease (CAD), Cancer, Myocardial Infarction ([place]), Thyroid Disorder Additional Past Medical History / Comment(s): Pt recently admitted to [facility] on 02/05/22 with AMS/visual and auditory hallucinations, possible UTI and left AMA. Other hx: Chronic low back pain, UTIs, hypothyroid, 5 miscarriages. Breast cancer Last Myocardial Infarction Date:: 2009 History of Any Multi-Drug Resistant Organisms: None Reported Past Surgical History: Back Surgery, Heart Catheterization With Stent, Tubal Ligation Additional Past Surgical History / Comment(s): 3 back surgeries with hardware, D&C., lymph node removal Past Anesthesia/Blood Transfusion Reactions: No Reported Reaction Date of Last Stent Placement:: 2009 at [facility] Past Psychological History: Anxiety, Bipolar, Depression Smoking Status: Former smoker Past Alcohol Use History: None Reported Past Drug Use History: None Reported - Past Family History Father History Unknown: Yes Additional Family Medical History / Comment(s): Father left family when pt was an . Mother History Unknown: Yes Additional Family Medical History / Comment(s): Mother when pt was a . Medications and Allergies Home Medications Medication Instructions Recorded Confirmed Type Gabapentin 800 mg PO TID 02/05/22 06/18/22 History traZODone HCL [Desyrel] 100 mg PO HS PRN 02/05/22 06/18/22 History busPIRone HCl [Buspar] 10 mg PO TID PRN 04/11/22 06/18/22 History Levothyroxine Sodium [Synthroid] 75 mcg PO DAILY 06/13/22 06/18/22 History Divalproex ER [Depakote ER] 250 mg PO BID 06/18/22 06/18/22 History HYDROcodone/APAP 5-325MG [[place] 1 tab PO Q6H PRN 06/18/22 06/18/22 History 5-325] Ibuprofen [Motrin] 800 mg PO Q8H 06/18/22 06/18/22 History Allergies Allergy/AdvReac Type Severity Reaction Status Date / Time codeine AdvReac Vomiting Verified 06/18/22 13:47 Surgical - Exam Vital Signs Temp Pulse Resp BP Pulse Ox 98.3 F 71 18 132/74 99 06/18/22 12:16 06/18/22 12:16 06/18/22 12:16 06/18/22 12:16 06/18/22 12:16 - General no distress - Neck trachea midline - Respiratory normal respiratory effort, clear to auscultation - Cardiovascular Heart Sounds: normal: S1, S2 - Abdomen Abdomen: soft - Integumentary Normal turgor Incision right chest wall clean and dry no evidence of infection or hematoma CHADWICK drain sites clean and dry no evidence of infection minimal output - Neurologic no disoriented, no combative - Musculoskeletal normal gait - Psychiatric oriented to time, oriented to person, oriented to place, speech is normal, memory intact Breast examination: Examination of right mastectomy site as above Left breast examination was done 05-30-22 Results - Labs 06/20/22 12:45 Abnormal Lab Results - Last 24 Hours (Table) 06/20/22 Range/Units 12:45 Sodium 136 L (137-145) mmol/L Glucose 100 H (74-99) mg/dL Diabetes panel 06/20/22 Range/Units 12:45 Sodium 136 L (137-145) mmol/L Potassium 4.8 (3.5-5.1) mmol/L Chloride 104 (98-107) mmol/L Carbon Dioxide 25 (22-30) mmol/L BUN 9 (7-17) mg/dL Creatinine 0.61 (0.52-1.04) mg/dL Glucose 100 H (74-99) mg/dL Calcium 8.7 (8.4-10.2) mg/dL Calcium panel 06/20/22 Range/Units 12:45 Calcium 8.7 (8.4-10.2) mg/dL Pituitary panel 06/20/22 Range/Units 12:45 Sodium 136 L (137-145) mmol/L Potassium 4.8 (3.5-5.1) mmol/L Chloride 104 (98-107) mmol/L Carbon Dioxide 25 (22-30) mmol/L BUN 9 (7-17) mg/dL Creatinine 0.61 (0.52-1.04) mg/dL Glucose 100 H (74-99) mg/dL Calcium 8.7 (8.4-10.2) mg/dL Adrenal panel 06/20/22 Range/Units 12:45 Sodium 136 L (137-145) mmol/L Potassium 4.8 (3.5-5.1) mmol/L Chloride 104 (98-107) mmol/L Carbon Dioxide 25 (22-30) mmol/L BUN 9 (7-17) mg/dL Creatinine 0.61 (0.52-1.04) mg/dL Glucose 100 H (74-99) mg/dL Calcium 8.7 (8.4-10.2) mg/dL Assessment and Plan Assessment: Impression: 62-year-old white female status post right mastectomy and axillary node sampling for an invasive ductal carcinoma stage I. Postprocedure she has had multiple request for narcotics including IV Dilaudid. At this time she states that her pain is under control. There is no evidence of any infection or symptomatically hematoma. Nodes removed were all negative for cancer, and tumor was completely removed. Plan: There does not appear to be a surgical cause for the patient's discomfort at this time. I would agree with pain management. CHADWICK drains removed. We'll continue to follow the patient. CC: Dr. Yessenia Mallory
[2022-06-20] MEDS: HEPARIN SODIUM,PORCINE/PF 5,000 UNIT/0.5 ML SYRINGE SQ SCH (20:32)
[2022-06-20] MEDS: FAMOTIDINE 20 MG/2 ML VIAL IV SCH ×2 (20:32→21:57)
[2022-06-21] MEDS: HYDROmorphone 0.5 MG/0.5 ML SYRINGE IVP PRN ×2 (03:18→09:04)
[2022-06-21] MEDS: oxyCODONE-APAP 10-325MG 1 EACH TAB PO PRN ×3 (04:42→16:03)
[2022-06-21] MEDS: KETOROLAC 15 MG/ML 1 ML VIAL IVP SCH ×2 (06:00→11:52)
[2022-06-21] MEDS: LEVOTHYROXINE 75 MCG TAB PO SCH (06:00)
[2022-06-21] MEDS ORDERED: FAMOTIDINE 20 MG TAB PO SCH (09:00)
[2022-06-21] MEDS: IBUPROFEN 800 MG TAB PO SCH ×2 (09:05→16:02)
[2022-06-21] MEDS: GABAPENTIN 400 MG CAP PO SCH ×2 (09:05→16:03)
[2022-06-21] MEDS: DIVALPROEX ER 250 MG TAB.ER.24H PO SCH (09:06)
[2022-06-21] MEDS: HEPARIN SODIUM,PORCINE/PF 5,000 UNIT/0.5 ML SYRINGE SQ SCH (09:06)
[2022-06-21 14:04] VITALS: BP 109/74; PULSE 80; RESP 16; TEMP 98.1
--- NOTE | 2022-06-21 19:34 | P.DS ---
Providers Date of admission: 06/18/22 13:32 Expected date of discharge: 06/21/22 Attending physician: Olivia rBown MD Consults: 06/19/22 12:14 Consult Physician Urgent Consulting Provider: Magen Bhatt Consult Reason/Comments: pain management, recent right breast mastectomy Do you want consulting provider notified?: Yes 06/20/22 12:01 Consult Physician Routine Consulting Provider: Alecia Davidson Consult Reason/Comments: right mastectomy wound management Do you want consulting provider notified?: Yes Primary care physician: [facility] Course: 62-year-old female presents emergency Department with chief complaint of postsurgical pain. Patient states that she had right mastectomy and lymph node removal by Dr. Marquis Elena 9 days ago. Patient states that she was receiving pain medications from emergency department. Patient states that she did follow- up after her surgery in the emergency department for pain control. She was discharged initially on 5/325 Drew her primary care physician called her and 10/325 Drew. She ran out of medication and was seen here and did receive a prescription for Drew again. She states there was only 3 day prescription and she is out. Patient had minimal improvement of her pain she states is still having significant right axilla pain. She has not had any recent lab work she has not had a follow-up appointment states she is scheduled next week for follow-up. No reports of fever she states she does have drains in which have been decreasing and output. Patient has had multiple visits to the ER for same concerns and is admitted to the hospital for intractable pain control -- Patient continues to ask for IV Dilaudid; reports oxycodone is ineffective -- Pain management is consulted and recommending to continue with IV Dilaudid 0.5 mg every 4 hours when necessary for severe pain, Percocet 10/25 mg every 6 hours when necessary for moderate pain, continue with ibuprofen 800 mg 3 times a day when necessary; pain management will follow-up and make changes as needed 06/20/2022 Patient a pleasant 62 years old female who is status post right mastectomy and difficult dissection and the arm prompting presents with worsening patent, more in the armpit. Then the breast area, his surgical wound is closed with nirav and a Place, also it has drains with minimal bloody discharge, Patient says that her pain today is 6/10, I discussed with the patient the goal of pain management as well as the risk of opioid medication including but not limited to the risk of addiction, respiratory depression and/or and she verbalized understanding and acceptance to start tapering her medication down, she agrees for lower Dilaudid home every 4 hours down to every 6 hours starts in today. We will try to taper down even more tomorrow. Pain management service on the case. Also patient is on Percocet and other pain medication Vitals are stable We will check basic metabolic panel as she is on NSAIDs Consult ACCOUNTING MANAGER ASSISTANT CONTROLLER today to take drains out and to look into the wound 1. Intractable postoperative pain at right mastectomy surgical wound and right armpit site - Patient has had multiple visits to ED for same concern; operation site looks clean without any suspicion of infection or abscess - Pain management service on the case, - We will start patient on oxycodone 10 mg every 6 hours when necessary with IV Dilaudid 0.5 mg every 4 hours when necessary, patient is agreeable to de- escalate Dilaudid 2 every 6 hours - Consult ACCOUNTING MANAGER ASSISTANT CONTROLLER for postop mastectomy and wound management 2. Coronary artery disease 3. Hypothyroidism; levothyroxine 75 MCG daily 4. Insomnia/sleep disorder; trazodone 100 mg by mouth daily at bedtime 5. Anxiety/depression; patient takes Depakote along with BuSpar and trazodone; Neurontin 800 mg by mouth 3 times a day Patient was evaluated by gynecological surgery and no evidence of any infection or symptomatically hematoma. Nodes removed were all negative for cancer, and tumor was completely removed. There does not appear to be a surgical cause for the patient's discomfort at this time. CHADWICK drains removed. IV pain medications to discontinue; patient was recommended to continue with Percocet 3 times a day when necessary and follow up with primary care physician for referral to pain management clinic Patient Condition at Discharge: Stable Plan - Discharge Summary Discharge Rx Participant: Yes New Discharge Prescriptions: New oxyCODONE-APAP 10-325MG [Percocet 10-325 mg] 1 each PO Q8HR PRN 3 Days #9 tab PRN Reason: Pain Continue Gabapentin 800 mg PO TID busPIRone HCl [Buspar] 10 mg PO TID PRN PRN Reason: Anxiety Ibuprofen [Motrin] 800 mg PO Q8H traZODone HCL [Desyrel] 100 mg PO HS PRN PRN Reason: Anxiety Levothyroxine Sodium [Synthroid] 75 mcg PO DAILY Divalproex ER [Depakote ER] 250 mg PO BID Discontinued HYDROcodone/APAP 5-325MG [Drew 5-325] 1 tab PO Q6H PRN PRN Reason: Pain Discharge Medication List Gabapentin 800 mg PO TID 02/05/22 [History] traZODone HCL [Desyrel] 100 mg PO HS PRN 02/05/22 [History] busPIRone HCl [Buspar] 10 mg PO TID PRN 04/11/22 [History] Levothyroxine Sodium [Synthroid] 75 mcg PO DAILY 06/13/22 [History] Divalproex ER [Depakote ER] 250 mg PO BID 06/18/22 [History] Ibuprofen [Motrin] 800 mg PO Q8H 06/18/22 [History] oxyCODONE-APAP 10-325MG [Percocet 10-325 mg] 1 each PO Q8HR PRN 3 Days #9 tab 06/21/22 [Rx] Follow up Appointment(s)/Referral(s): Sameera Oscar MD [Primary Care Provider] - 1-2 days Discharge Disposition: HOME SELF-CARE
== END 2022-06-21 16:44 | disposition home or self-care (01) ==
LOC: EC 12:15 → 6NMEDSUR 13:32
PROVIDERS: ADMIT Internal Medicine; ATTEND Internal Medicine
DX: G89.18 Other acute postprocedural pain (principal); M79.621 Pain in right upper arm; I25.10 Atherosclerotic heart disease of native coronary artery without angina pectoris; G40.909 Epilepsy, unspecified, not intractable, without status epilepticus; E03.9 Hypothyroidism, unspecified; I25.2 Old myocardial infarction; G89.29 Other chronic pain; M54.50 Low back pain, unspecified; F31.9 Bipolar disorder, unspecified; F41.9 Anxiety disorder, unspecified; G47.00 Insomnia, unspecified; Z79.890 Hormone replacement therapy; Z79.899 Other long term (current) drug therapy; Z88.5 Allergy status to narcotic agent; Z90.11 Acquired absence of right breast and nipple; Z85.3 Personal history of malignant neoplasm of breast; Z87.440 Personal history of urinary (tract) infections; Z95.5 Presence of coronary angioplasty implant and graft; Z98.51 Tubal ligation status; Z98.890 Other specified postprocedural states; Z87.891 Personal history of nicotine dependence; Z80.0 Family history of malignant neoplasm of digestive organs; Z80.3 Family history of malignant neoplasm of breast
CPT/HCPCS: 96376 ×5; 96372 ×3; 96375 ×2; 96374; 99285; 80048; 81001; G0378 ×4; J2270; J1885 ×4; J1170 ×4; J1644 ×2

== ENCOUNTER 2022-06-26 13:44 | Emergency (ER) | payer OTHER ==
[2022-06-26] MEDS ORDERED: HYDROmorphone 0.5 MG/0.5 ML SYRINGE IM STA ×2 (16:46→17:59)
[2022-06-26] MEDS ORDERED: GABAPENTIN 300 MG CAP PO STA (17:31)
--- NOTE | 2022-06-26 17:34 | ED ---
General Adult HPI - General Chief complaint: Recheck/Abnormal Lab/Rx Stated complaint: breast pain Time Seen by Provider: 06/26/22 16:19 Source: patient Mode of arrival: EMS - History of Present Illness Initial comments: Patient is a 62 year old female who presents to the ED for postop pain. Patient had a right mastectomy and axillary node sampling for an invasive ductal carcino ma stage 1 on 06/[address] Cho. Since the procedure patient has visited to the ED multiple times for postop pain. Last visit she was admitted during which Dr. Cho evaluated her. There was no evidence of infection or hematoma, no surgical cause for pain. Patient's CHADWICK drains were removed and she was evaluated by pain management. Patient states since discharge on 06/21 she is out of [place] resulting in significant pain. Pain is an aching and stabbing in the right axilla. She denies fever, chills, nausea, vomiting. States she is waiting on the pain clinic to call her back for appointment - Related Data Home Medications Medication Instructions Recorded Confirmed Gabapentin 800 mg PO TID 02/05/22 06/18/22 traZODone HCL [Desyrel] 100 mg PO HS PRN 02/05/22 06/18/22 busPIRone HCl [Buspar] 10 mg PO TID PRN 04/11/22 06/18/22 Levothyroxine Sodium [Synthroid] 75 mcg PO DAILY 06/13/22 06/18/22 Divalproex ER [Depakote ER] 250 mg PO BID 06/18/22 06/18/22 Ibuprofen [Motrin] 800 mg PO Q8H 06/18/22 06/18/22 Previous Rx's Medication Instructions Recorded oxyCODONE-APAP 10-325MG [Percocet 1 each PO Q8HR PRN 3 Days #9 tab 06/21/22 10-325 mg] Allergies Allergy/AdvReac Type Severity Reaction Status Date / Time morphine Allergy Rash/Hives Verified 06/26/22 17:57 ciprofloxacin [From Cipro] AdvReac Rash/Hives Verified 06/26/22 17:57 codeine AdvReac Vomiting Verified 06/26/22 17:57 Review of Systems ROS Statement: Those systems with pertinent positive or pertinent negative responses have been documented in the HPI. ROS Other: All systems not noted in ROS Statement are negative. Past Medical History Past Medical History: Coronary Artery Disease (CAD), Cancer, Myocardial Infarction ([place]), Thyroid Disorder Additional Past Medical History / Comment(s): Pt recently admitted to [facility] on 02/05/22 with AMS/visual and auditory hallucinations, possible UTI and left AMA. Other hx: Chronic low back pain, UTIs, hypothyroid, 5 miscarriages. Breast cancer Last Myocardial Infarction Date:: 2009 History of Any Multi-Drug Resistant Organisms: None Reported Past Surgical History: Back Surgery, Heart Catheterization With Stent, Tubal Ligation Additional Past Surgical History / Comment(s): 3 back surgeries with hardware, D&C., lymph node removal Past Anesthesia/Blood Transfusion Reactions: No Reported Reaction Date of Last Stent Placement:: 2009 at [facility] Past Psychological History: Anxiety, Bipolar, Depression Smoking Status: Former smoker Past Drug Use History: None Reported - Past Family History Father History Unknown: Yes Additional Family Medical History / Comment(s): Father left family when pt was an . Mother History Unknown: Yes Additional Family Medical History / Comment(s): Mother when pt was a . General Exam General appearance: alert, in no apparent distress Head exam: Present: atraumatic, normocephalic, normal inspection Respiratory exam: Present: normal lung sounds bilaterally, other (surgical incisions healing nicely, no evidence of infection ). Absent: respiratory distress, wheezes, rales, chest wall tenderness Cardiovascular Exam: Present: regular rate, normal rhythm, normal heart sounds. Absent: systolic murmur, diastolic murmur, rubs, gallop, clicks Extremities exam: Present: other (tenderness right axilla no overlying skin abnormalities ) Neurological exam: Present: alert, oriented X3, CN II-XII intact Psychiatric exam: Present: normal affect, normal mood Skin exam: Present: warm, dry, intact, normal color. Absent: rash Course Vital Signs 06/26/22 06/26/22 06/26/22 14:16 16:11 18:26 Temperature 98.0 F 98.6 F Pulse Rate 76 79 73 Respiratory 16 16 18 Rate Blood Pressure 134/89 125/83 131/83 O2 Sat by Pulse 98 99 100 Oximetry Medical Decision Making - Medical Decision Making Was pt. sent in by a medical professional or institution (, PA, MINING SUPPORT WORKER, urgent care, hospital, or longterm...) When possible be specific @ -[No] Did you speak to anyone other than the patient for history (EMS, parent, family, police, friend...)? What history was obtained from this source @ -[No] Did you review nursing and triage notes (agree or disagree)? Why? @ -[I reviewed and agree with nursing and triage notes] Were old charts reviewed (outside hosp., previous admission, EMS record, old EKG, old radiological studies, urgent care reports/EKG's, longterm records)? Report findings @ -Yes, patient had recent mastectomy with postprocedure pain Differential Diagnosis (chest pain, altered mental status, abdominal pain women, abdominal pain men, vaginal bleeding, weakness, fever, dyspnea, syncope, headache, dizziness, GI bleed, back pain, seizure, CVA, palpatations, mental health)? @ cellulitis, hematoma, abscess EKG interpreted by me (3pts min.). @ -[As above] X-rays interpreted by me (1pt min.). @ -[None done] CT interpreted by me (1pt min.). @ -[None done] U/S interpreted by me (1pt. min.). @ -[None done] What testing was considered but not performed or refused? (CT, X-rays, U/S, labs)? Why? @ -[None] What meds were considered but not given or refused? Why? @ -[None] Did you discuss the management of the patient with other professionals (professionals i.e. , PA, MINING SUPPORT WORKER, lab, RT, psych nurse, social science research assistant, sports lawyer, teacher, assistant chief nursing officer, senior case manager)? Give summary @ Yes, discussed case with Dr. Cho who recommends pain control with follow up appointment this Friday. Was smoking cessation discussed for >3mins.? @ -[No] Was critical care preformed (if so, how long)? @ -[No] Were there social determinants of health that impacted care today? How? (Homelessness, low income, unemployed, alcoholism, drug addiction, transportation, low edu. Level, literacy, decrease access to med. care, retirement, rehab)? @ -[No] Was there de-escalation of care discussed even if they declined (Discuss DNR or withdrawal of care, Hospice)? DNR status @ -[No] What co-morbidities impacted this encounter? (DM, HTN, Smoking, COPD, CAD, Cancer, CVA, ARF, Chemo, Hep., AIDS, mental health diagnosis, sleep apnea, morbid obesity)? @ -[None] Was patient admitted / discharged? Hospital course, mention meds given and route, prescriptions, significant lab abnormalities, going to OR and other pertinent info. @ This is a 62-year-old female presenting with postop pain. Patient looks well, afebrile. Right chest incision clean and dry, no evidence for infection. Pain controlled. I did speak with Dr. Cho over the phone who recommends pain control and follow-up appointment on Friday in her office. Patient will be discharged with a short course of [place]. She understands the risks of repeated narcotic use and the importance of establishing care with the pain clinic. Patient to follow up with Dr. Cho on Friday. Undiagnosed new problem with uncertain prognosis? @ -[No] Drug Therapy requiring intensive monitoring for toxicity (Heparin, Nitro, Insulin, Cardizem)? @ -[No] Were any procedures done? @ -[No] Diagnosis/symptom? @Post-op pain Acute, or Chronic, or Acute on Chronic? @-Acute Uncomplicated (without systemic symptoms) or Complicated (systemic symptoms)? @ -Uncomplicated Side effects of treatment? @ -[No] Exacerbation, Progression, or Severe Exacerbation? @ -[No] Poses a threat to life or bodily function? How? (Chest pain, [place], [place], pneumonia, PE, COPD, DKA, ARF, appy, cholecystitis, CVA, Diverticulitis, Homicidal, Suicidal, threat to staff... and all critical care pts) @ -[No] Dr. Marinelli is my attending. Disposition Clinical Impression: Post-operative pain Disposition: HOME SELF-CARE Condition: Good Instructions (If sedation given, give patient instructions): Mastectomy (DC) Additional Instructions: Occasion as directed. Follow-up with pain clinic as planned. Return to the emergency department if you experience new, concerning, or worsening symptoms. Is patient prescribed a controlled substance at d/c from ED?: No Referrals: Sameera Oscar MD [Primary Care Provider] - 1-2 days Time of Disposition: 17:34
[2022-06-26 18:28] VITALS: BP 131/83; PULSE 73; RESP 18; TEMP 98.6
== END 2022-06-26 18:30 | disposition home or self-care (01) ==
LOC: SUPCPDRO 13:44 → EC 13:44
DX: G89.18 Other acute postprocedural pain (principal); I25.10 Atherosclerotic heart disease of native coronary artery without angina pectoris; I25.2 Old myocardial infarction; E03.9 Hypothyroidism, unspecified; F41.9 Anxiety disorder, unspecified; F31.9 Bipolar disorder, unspecified; Z87.891 Personal history of nicotine dependence; Z79.890 Hormone replacement therapy; Z88.1 Allergy status to other antibiotic agents; Z88.5 Allergy status to narcotic agent
CPT/HCPCS: 99284; 96372 ×2; J1170

== ENCOUNTER → 2022-06-28 | Outpatient (CLI) | payer OTHER ==
[2022-06-28 16:04] VITALS: BP 117/82; PULSE 71; RESP 17; TEMP 97.9
--- NOTE | 2022-06-28 16:20 | P.PN ---
Progress Note - Text Progress Note Date: 06/28/22 Kendra is a 62 year old white female status post right mastectomy and SNB on 06-04-22. 6 lymph nodes were removed all benign, and margins were all negative. 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 She had multiple trips to the emergency room with complaints of pain related initially to the incision and now the pain is localized high in the axilla. It is controlled at this time with Geraldine. She has been seen by pain clinic and will see them next week. Examination: Lungs: Clear Heart: Regular rate and rhythm Incision: Clean and dry no evidence of any infection or hematoma Impression: Postoperative pain high in the axilla Patient margins negative lymph nodes negative Plan: follow up medical oncology follow up here 4 months follow up pain clinic she has declined physical therapy CC: DR. Galindo
== END ==
LOC: WWCWWP 15:47
PROVIDERS: ATTEND Surgery
DX: G89.18 Other acute postprocedural pain (principal); Z88.5 Allergy status to narcotic agent; Z88.1 Allergy status to other antibiotic agents

== ENCOUNTER → 2022-07-04 | Outpatient (CLI) | payer OTHER ==
[2022-07-04 14:45] VITALS: BP 114/77; PULSE 95; RESP 18; TEMP 98.1
--- NOTE | 2022-07-04 14:57 | P.PAINPG ---
PQRS Measure Charge Sheet Comment: A 62 yr old female with a history of severe and chronic R chest wall pain secondary to R masectomy and R sentinel resection presents today for medication refills. Pain level is provoked at 8 /10 in intensity, constant, localized in the R chest wall, dull/ achy in character w shooting towards the R chest axilla. Pain is provoked by any activity. Pain is alleviated with medications (Dilaudid, [place], Ibu), applying pressure, repositioning and rest. Interventional pain procedures completed include DENIES Patient is currently on Dilaudid, [place], Ibu Patient denies any side effects of the medication(s), denies excessive drowsiness or sleepiness, denies suicidal ideation and reports that the current pain medication is helping to control the pain and improve activities of daily living. Patient denies any motor or sensory deficits. Patient denies any fever or night sweats, denies any change in the bowel movements or urination. Physical Examination: -Constitutional: Cooperative. Not in acute distress . - Neurologic: Cranial nerve II to XII intact. No focal neurological deficits. - Psychatric: Alert & oriented x 3. Matching mood & appropriate affect. Judgment and insight intact. - Musculoskeletal: Cervical spine: Muscle bulk/ tone/ strength in the bilateral upper extremities normal Vertebral body tenderness to palpation over Spurling test positive Distraction test positive Facet loading test positive Thoracic spine Muscle bulk / tone/ strength in the bilateral paraspinal muscles normal Vertebral body tender to palpation over Facet loading test positive Lumbar spine: Motor bulk/ tone/ strength lower extremities , thigh and legs : 5/5 Deep tendon reflexes : Normal Knee Jerk. Normal Ankle Jerk . Vertebral body tenderness to palpation over Lumbar Facet Loading Test positive Straight Leg Raise: positive at 30 degrees right side/ left side Gaenslen's Test positive Sacral spine : Severe tenderness over the Sacroiliac joint: right side / left side Range of motion: Flexion of the lumbar spine <60 degrees Range of motion: Extension of the lumbar spine <20 degrees Gaenslen's Test positive Harriett test: positive right side / left side Thigh Thrust Test Sacral Thrust Test Assessment and plan: Chronic neck pain secondary to cervical DDD, spondylosis with facet arthropathy without myelopathy Chronic and current use of high-risk medication (Opioids). The patient was counseled about risk of opioid use, psychological risk associated with opioids and was orally counseled to not overuse , divert or sell medications. Pt is to store medication in a safe location. The patient is counseled against driving while using narcotic medications and also not to use alcohol or any illicit recreational drugs. Patient verbalized understanding that the lack of compliance will result in failure to renew narcotic prescription(s) as well as possible discharge from the clinic Diagnoses, prognosis and treatment options including but not limited to physical therapy, surgical interventions, interventional therapies and medication management including narcotics and adjuvant medication were discussed. All patient questions answered MAPS reviewed and it was appropriate. Prescription refill for [place] 7.5-325mg #60 w 1 RF. Dilaudid 2mg #6 NR for severe pain. Opiate/ Narcotic agreement signed 07/04/22. I have spent less than 30 minutes on patient care today. Dr Bhatt was available by phone for the evaluation of this patient. The time was used to revi ew the medical records including relevant urine studies and Prescription history (MAPs), review of the available imaging, evaluation and examination of the patient, coordination of care with the medical staff and if applicable referring physicians, as well as creation of the medical record Home Medications: Ambulatory Orders Gabapentin 800 mg PO TID 02/05/22 traZODone HCL [Desyrel] 100 mg PO HS PRN 02/05/22 busPIRone HCl [Buspar] 10 mg PO TID PRN 04/11/22 Levothyroxine Sodium [Synthroid] 75 mcg PO DAILY 06/13/22 Divalproex ER [Depakote ER] 250 mg PO BID 06/18/22 Ibuprofen [Motrin Ib] 200 mg PO DIRECTED PRN 06/28/22 HYDROcodone/APAP 7.5-325MG [[place] 7.5-325] 1 tab PO Q12H PRN 30 Days #60 tab 07/04/22 HYDROcodone/APAP 7.5-325MG [[place] 7.5-325] 1 tab PO Q12HR PRN 30 Days #60 tab 07/04/22 HYDROmorphone [Dilaudid] 2 mg PO Q12H PRN 3 Days #6 tab 07/04/22 Controlled Substance Measures - Controlled Substance Measures Is patient prescribed a controlled substance at discharge?: Yes When asked, does pt state using other controlled substances?: Yes If prescribed controlled substance>3 days was MAPS reviewed?: Yes If Rx opioid, was Start Talking consent form obtained?: Yes Was information provided regarding opioid addiction?: Yes
== END ==
LOC: PNWHC3 12:10
PROVIDERS: ATTEND Specialist
DX: M47.812 Spondylosis without myelopathy or radiculopathy, cervical region (principal); M50.30 Other cervical disc degeneration, unspecified cervical region; G89.29 Other chronic pain; Z79.891 Long term (current) use of opiate analgesic; Z88.1 Allergy status to other antibiotic agents; Z88.5 Allergy status to narcotic agent
CPT/HCPCS: 99211

== ENCOUNTER → 2022-08-28 | Outpatient (CLI) | payer OTHER ==
--- NOTE | 2022-08-28 15:54 | CT ---
EXAMINATION TYPE: CT abdomen pelvis wo/w con DATE OF EXAM: 08/28/2022 HISTORY: abnormal kidney us and reoccurring UTIs CT DLP: 1218.10mGycm Automated Exposure Control for Dose Reduction was Utilized. CONTRAST: CT scan of the abdomen and pelvis is performed with oral and without and with IV Contrast, patient in jected with 80 mL of Isovue 300. COMPARISON: Renal ultrasound August 05, 2022. FINDINGS: LUNG BASES: Small fat-containing hernia of the diaphragm sagittal image 43 posterior right lung base. LIVER/GB: No significant abnormality is appreciated. PANCREAS: No significant abnormality is seen. SPLEEN: No significant abnormality is seen. ADRENALS: No significant abnormality is seen. KIDNEYS: No renal calculi on noncontrast images. Postcontrast images show symmetric cortical medullar y uptake and excretion without concerning solid or cystic renal mass or hydronephrosis seen bilateral ly with particular attention to the upper pole left kidney at the area of clinical concern. Urinary b ladder appears within normal limits. BOWEL: Oral contrast reaches level of the splenic flexure. There is no suspicious small or large lexy l dilatation. UTERUS/ADNEXA: Slightly retroflexed uterus. LYMPH NODES: No greater than 1cm abdominal or pelvic lymph nodes are appreciated. OSSEOUS STRUCTURES: Posterior intrapedicular rods and screws run through the L3-S1 level on the right and L4-S1 level on the left. Metallic disc material L3-L4 through L5-S1 levels is present. There are 2 fixating metallic devices at the right sacroiliac joint. Mild to moderate narrowing and spurring i n both hip joints. OTHER: Mild calcified plaque distal abdominal aorta extends into common iliac arteries. IMPRESSION: No renal calculi seen bilaterally. No concerning solid or cystic renal masses. Symmetric excretion without hydronephrosis seen bilaterally.
== END | disposition home or self-care (01) ==
LOC: RADCTMAIN 12:45
PROVIDERS: ATTEND Family Medicine
DX: N28.89 Other specified disorders of kidney and ureter (principal); R93.422 Abnormal radiologic findings on diagnostic imaging of left kidney
CPT/HCPCS: 74178; Q9967

== ENCOUNTER → 2022-08-29 | Outpatient (CLI) | payer OTHER ==
[2022-08-29 13:30] VITALS: BP 122/81; PULSE 79; RESP 18; TEMP 97.8
--- NOTE | 2022-08-29 15:53 | P.PAINPG ---
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 Pain level is provoked at 9 /10 in intensity, constant, localized in the R axillae, stabbing, sharp in character w/o shooting pain. Pain is provoked by laying on the R side. Pain is alleviated with medications, ice, sleeping with right upper extremity elevated, repositioning and rest. Patient is currently on Albert 7.5/325mg #60, Neurontin Patient denies any side effects of the medication(s), denies excessive drowsiness or sleepiness, denies suicidal ideation and reports that the current pain medication is helping to control the pain and improve activities of daily living. Patient denies any motor or sensory deficits. Patient denies any fever or night sweats, denies any change in the bowel movements or urination. Physical Examination: -Constitutional: Cooperative. Not in acute distress . - Neurologic: Cranial nerve II to XII intact. No focal neurological deficits. - Psychatric: Alert & oriented x 3. Matching mood & appropriate affect. Judgment and insight intact. - Musculoskeletal: Cervical spine: Muscle bulk/ tone/ strength in the bilateral upper extremities normal Vertebral body tenderness to palpation over Spurling test positive Distraction test positive Facet loading test positive TTP Thoracic spine Healing incisional scars in R axilla region Muscle bulk / tone/ strength in the bilateral paraspinal muscles normal Vertebral body tender to palpation over Facet loading test positive TTP Lumbar spine: Motor bulk/ tone/ strength lower extremities , thigh and legs : 5/5 Deep tendon reflexes : Normal Knee Jerk. Normal Ankle Jerk . Vertebral body tenderness to palpation over Lumbar Facet Loading Test positive Straight Leg Raise: positive at 30 degrees right side/ left side Gaenslen's Test positive Sacral spine : Severe tenderness over the Sacroiliac joint: right side / left side Range of motion: Flexion of the lumbar spine <60 degrees Range of motion: Extension of the lumbar spine <20 degrees Gaenslen's Test positive R / L Harriett test: positive right side / left side Thigh Thrust Test positive R / L Sacral Thrust Test positive R/ L Assessment and plan: Chronic R breast pain secondary to resection of ductal carcinoma Chronic and current use of high-risk medication (Opioids). The patient was counseled about risk of opioid use, psychological risk associated with opioids and was orally counseled to not overuse , divert or sell medications. Pt is to store medication in a safe location. The patient is counseled against driving while using narcotic medications and also not to use alcohol or any illicit recreational drugs. Patient verbalized understanding that the lack of compliance will result in failure to renew narcotic prescription(s) as well as possible discharge from the clinic Diagnoses, prognosis and treatment options including but not limited to physical therapy, surgical interventions, interventional therapies and medication management including narcotics and adjuvant medication were discussed. All patient questions answered MAPS reviewed and it was appropriate. UDS collected today 08/29/22. E script for Narcan 4mg per nostril x1, may repeat every 2-3 min prn drowsiness. Use, side effects, adverse reactions discussed and pt verbalized understanding. Prescription refill for Percocet 10/325mg #60 w 1 RF. Opiate/ narcotic agreement signed today 08/29/22. Discontinue Albert 7.5/325mg #60 I have spent less than 30 minutes on patient care today. Dr Bhatt was available by phone for the evaluation of this patient. The time was used to review the medical records including relevant urine studies and Prescription history (MAPs), review of the available imaging, evaluation and examination of the patient, coordination of care with the medical staff and if applicable referring physicians, as well as creation of the medical record - Pain Location Right Breast Non-Pharmacological Interventions: Ice, Inactivity, Position/Reposition Pharmacological Interventions: Scheduled Medication PQRS Narrative: Narcotic Agreement Date Signed 07/04/22 Hx Alcohol Use (MH) No Home Medications: Ambulatory Orders Gabapentin 800 mg PO TID 02/05/22 traZODone HCL [Desyrel] 100 mg PO HS PRN 02/05/22 busPIRone HCl [Buspar] 10 mg PO TID PRN 04/11/22 Levothyroxine Sodium [Synthroid] 75 mcg PO DAILY 06/13/22 Divalproex ER [Depakote ER] 250 mg PO BID 06/18/22 Ibuprofen [Motrin Ib] 200 mg PO DIRECTED PRN 06/28/22 Naloxone HCl [Narcan] 4 mg NASAL ONCE PRN 180 Days #1 each 08/29/22 oxyCODONE HCL/ACETAMINOPHEN [Percocet 10-325 mg Tablet] 1 each PO BID PRN 30 Days #60 tab 08/29/22 oxyCODONE HCL/ACETAMINOPHEN [Percocet 10-325 mg] 1 tab PO Q12HR PRN 30 Days #60 tab 08/29/22 Controlled Substance Measures - Controlled Substance Measures Is patient prescribed a controlled substance at discharge?: Yes When asked, does pt state using other controlled substances?: Yes If prescribed controlled substance>3 days was MAPS reviewed?: Yes If Rx opioid, was Start Talking consent form obtained?: Yes Was information provided regarding opioid addiction?: Yes
== END ==
LOC: PNWHC3 12:52
PROVIDERS: ATTEND Specialist
DX: C50.911 Malignant neoplasm of unspecified site of right female breast (principal); Z79.891 Long term (current) use of opiate analgesic; Z51.81 Encounter for therapeutic drug level monitoring; Z88.5 Allergy status to narcotic agent; Z88.1 Allergy status to other antibiotic agents; G89.29 Other chronic pain; Z85.3 Personal history of malignant neoplasm of breast
CPT/HCPCS: 99212

== ENCOUNTER → 2022-09-12 | Outpatient (CLI) | payer OTHER ==
--- NOTE | 2022-09-12 11:53 | CT ---
EXAMINATION TYPE: CT chest w con DATE OF EXAM: 09/12/2022 COMPARISON: NONE HISTORY: f/u breast ca CT DLP: 298.30 mGycm. Automated Exposure Control for Dose Reduction was Utilized. TECHNIQUE: CT scan of the thorax is performed following with IV Contrast, patient injected with 100 mL of Isovue 300. FINDINGS: LUNGS: Tiny nodules and/or nodular atelectasis in the posterior left lower lobe are present. For refe rence there is a 9 x 5 mm area axial image 39. Former is favored given lack of additional greater alok n 5 mm pulmonary nodules and posterior location. Occasional micronodule bilaterally. For reference pe ripheral right lower lobe axial image 31. There is no pleural effusion or pneumothorax seen. The tra cheobronchial tree is patent. MEDIASTINUM: There are no greater than 1 cm hilar or mediastinal lymph nodes. No pericardial effusi on is seen. Mild to moderate biatrial dilatation. No cardiomegaly. Coronary artery calcification and /or stent in the LAD. Latter is suspected. OTHER: Right breast is surgically absent. Scar tissue in the right axilla is seen. There is single no nspecific prominent 9 mm lymph node axial image 16 in the axilla. IMPRESSION: Postmastectomy changes right breast. Single nonspecific 9 mm right axillary lymph node is noted and should be closely monitored. Scattered micronodules and suspected dependent nodular atelec tasis in the left lower lobe favored benign. No acute pulmonary process.
--- NOTE | 2022-09-12 15:26 | NM ---
EXAMINATION TYPE: NM bone scan whole body DATE OF EXAM: 09/12/2022 3:08 PM CLINICAL INDICATION:Female, 62 years old with history of C50.211 Breast Ca; COMPARISON: 09/12/2022 and 08/28/2022 CT's. TECHNIQUE: Intravenous administration 24.0 mCi Tc 99m MDP followed by multiple scintigraphic images o f the appendicular and axial skeleton. Additionally, small field of view planar images of the pelvis and chest were symmetrically for review. Images acquired 3 hours post injection. FINDINGS: No abnormal uptake is identified within the appendicular or axial skeleton to suggest metastatic dise ase. There is increased uptake within the lateral sacroiliac joints consistent with degenerative changes. No other photopenic areas or areas of increased activity are identified. Physiologic radiotracer activity is demonstrated in the kidneys and bladder. IMPRESSION: Nothing to suggest metastatic disease.
== END | disposition home or self-care (01) ==
LOC: RADNMMAIN 10:34
PROVIDERS: ATTEND Internal Medicine Hematology & Oncology
DX: C50.211 Malignant neoplasm of upper-inner quadrant of right female breast (principal); R91.8 Other nonspecific abnormal finding of lung field; Z90.11 Acquired absence of right breast and nipple
CPT/HCPCS: 71260; 78306; A9503; Q9967

== ENCOUNTER → 2022-09-20 | Outpatient (CLI) | payer OTHER ==
--- NOTE | 2022-09-20 11:58 | XR ---
EXAMINATION TYPE: XR spine complete AP and Lat DATE OF EXAM: 09/20/2022 11:47 AM INDICATION: Patient age:Female; 62 years old; Reason for study: M54.6 M54.50 M54.2; [facility]. COMPARISON: CT abdomen pelvis 08/28/2022 TECHNIQUE: Frontal, lateral, open-mouth views of the cervical spine were obtained. Frontal and latera l views of the thoracolumbar spine were obtained. FINDINGS: Cervical spine: No acute fracture. Minimal grade 1 anterolisthesis of C3 and C4. Mild retrolisthesis of C5 on C6. Mil d disc space narrowing at C5-C6 with anterior ossified ptosis. There are osteophytes noted throughout the cervical spine on the anterior and lateral aspects of the vertebral bodies. Pedicles are intact. Soft tissues are within normal limits. The odontoid appears intact. Thoracolumbar spine: No evidence of any acute osseous pathology. 5 lumbar type vertebral bodies identified. Mild multilev el degenerative disc disease of the thoracal lumbar spine with disc space narrowing and osteophytosis . Dextroconvex curvature of the lumbar spine with apex at L3. Changes of the lumbar spine with bilate ral pedicle screws and spacers involving L3-S1 with additional postsurgical changes of the right SI j oint. Hardware appears intact. No evidence of loss of vertebral body height is seen. Vascular scleros is. IMPRESSION: 1. No acute process. 2. Mild degenerative disease of the cervical thoracolumbar spine. 3. Postsurgical changes of the lumbar spine fusion and right SI joint. Hardware appears intact.
== END | disposition home or self-care (01) ==
LOC: RADXRMAIN 11:15
PROVIDERS: ATTEND Family Medicine
DX: M47.812 Spondylosis without myelopathy or radiculopathy, cervical region (principal); M47.815 Spondylosis without myelopathy or radiculopathy, thoracolumbar region; Z98.1 Arthrodesis status
CPT/HCPCS: 72082

== ENCOUNTER → 2022-11-04 | Outpatient (CLI) | payer OTHER ==
[2022-11-04 14:14] VITALS: BP 129/85; PULSE 71; RESP 18; TEMP 98.4
== END ==
LOC: PNWHC3 13:36
PROVIDERS: ATTEND Specialist
DX: M79.603 Pain in arm, unspecified (principal); Z88.5 Allergy status to narcotic agent; Z88.1 Allergy status to other antibiotic agents
CPT/HCPCS: 99211

== ENCOUNTER → 2022-11-08 | Outpatient (CLI) | payer OTHER ==
[2022-11-08 15:10] VITALS: BP 107/71; PULSE 78; RESP 17; TEMP 97.9
--- NOTE | 2022-11-08 15:36 | P.PN ---
Subjective Progress Note Date: 11/08/22 Principal diagnosis: Stage IB right breast invasive ductal cancer [id number] Kendra is a 62 -year-old white female seen in consultation for Dr. Abhishek Che regarding a biopsy-proven right breast invasive ductal carcinoma. She underwent a bilateral screening mammogram on 102 622. 1.1 cm lesion was noted at the 12 o'clock position of the right breast. An ultrasound was recommended. This was performed on the same date and this revealed a 0.8 x 0.8 cm lesion for which core biopsy was recommended, this was performed on . Pathology revealed a grade 3 invasive ductal carcinoma this was ER/MI and HER-2 negative. The patient does not feel any lumps masses or nodules of concern in the breast, however she did feel some pain in the midportion of the right breast and that is what initiated the evaluation. She had not had any mammogram in the past, this was her first mammogram. The patient on 06-04-22 underwent a right breast mastectomy and axilary node biopsy. 6 nodes removed all (-) for cancer. Her margins were (-). Post operatively she did complain of some pain management issues in the axilla, for which a referral to pain managment was made. The patient was seen by DR. Rodríguez on 08-27-22. She was in agreement for adjuvant chemotherapy. She had a port placed last week for the chemotherapy. She had a CT scan done on 08-28-22 which was (-) for renal stones, and any renal masses. She underwent a chest CT on this revealed postmastectomy changes right breast. Single nonspecific 9 mm right axillary lymph node was noted and will be closely followed. Scattered micronodules and suspected dependent nodular atelectasis in the left lower lobe favored benign. No acute pulmonary process. The patient also underwent a bone scan on nothing to suggest metastatic disease. Patient is also noted to have a high white blood cell count. There is concern that she may have a low-grade lymphoma, she was going to be further evaluated for this by medical oncology. The patient is seeing Dr. Kevin martin medical oncology at [facility] in [place] We discussed the patient seen radiation oncology and at this time she has declined. 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 Family history: aunt paternal: breast cancer mother: pancreatic cancer; at 44 (mother at her , father when she was 13) Hormonal history: Menarche: 12 M5 breast fed: yes, age at first : 29, and second at 40 menopause: 52 BCP: 2 years in her 20's Surgical history: 3 back surgeries D&C cardiac stint Medical History: NH depression/anxiety, bipolar Social History: nicotine: 1/2 PPD since alcohol: none drugs: Marijuana occasionally - Constitutional Constitutional: Denies chills, Denies fever - EENT Eyes: denies blurred vision, denies pain Ears: deny: decreased hearing, tinnitus Ears, nose, mouth and throat: Denies headache, Denies sore throat - Breasts Breasts: bilateral: as per HPI - Cardiovascular Cardiovascular: Denies chest pain, Denies shortness of breath - Respiratory Respiratory: Denies cough - Gastrointestinal Gastrointestinal: Denies abdominal pain, Denies diarrhea, Denies nausea, Denies vomiting - Genitourinary (Female) Genitourinary: Denies dysuria, Denies hematuria - Menstruation Menstruation: Reports as per HPI - Musculoskeletal Musculoskeletal: Denies myalgias - Integumentary Integumentary: Denies pruritus, Denies rash - Neurological Neurological: Denies numbness, Denies weakness - Psychiatric Psychiatric: Reports anxiety, Reports depression - Endocrine Endocrine: Denies fatigue, Denies weight change - Hematologic/Lymphatic Comment: none - Allergic/Immunologic Allergic/Immunologic: Reports as per HPI Past Medical History Past Medical History: Coronary Artery Disease (CAD), Myocardial Infarction (NH), Thyroid Disorder Additional Past Medical History / Comment(s): Pt recently admitted to [facility] on 02/05/22 with AMS/visual and auditory hallucinations, possible UTI and left AMA. Other hx: Chronic low back pain, UTIs, hypothyroid, RLS Last Myocardial Infarction Date:: 2009 History of Any Multi-Drug Resistant Organisms: None Reported Past Surgical History: Back Surgery, Heart Catheterization With Stent, Tubal Ligation Additional Past Surgical History / Comment(s): 3 back surgeries/has hardware, D&C. Past Anesthesia/Blood Transfusion Reactions: No Reported Reaction Date of Last Stent Placement:: 2009 at [facility] Past Psychological History: Anxiety, Bipolar, Depression Additional Psychological History / Comment(s): Pt resides with her spouse. She is normally independent. Smoking Status: Current every day smoker Past Alcohol Use History: None Reported Additional Past Alcohol Use History / Comment(s): Pt started smoking in 1977 and is a ppd smoker. Past Drug Use History: Marijuana Additional Drug Use History / Comment(s): Occasional marijuana use - Past Family History Father History Unknown: Yes Additional Family Medical History / Comment(s): Father left family when pt was an infant. Mother History Unknown: Yes Additional Family Medical History / Comment(s): Mother when pt was a . Medications and Allergies Home Medications Medication Instructions Recorded Confirmed Type Gabapentin 800 mg PO BID 02/05/22 04/11/22 History Levothyroxine Sodium 150 mcg PO DAILY 02/05/22 04/11/22 History traZODone HCL [Desyrel] 100 mg PO HS 02/05/22 04/11/22 History Thiamine [Vitamin B-1] 100 mg PO DAILY #30 tab 02/10/22 04/11/22 Rx Pyridoxine [Vitamin B-6] 50 mg PO DAILY #30 tab 02/13/22 04/11/22 Rx Divalproex [Depakote] 1 each PO BID 04/11/22 04/11/22 History busPIRone HCl [Buspar] 10 mg PO TID 04/11/22 04/11/22 History Allergies Allergy/AdvReac Type Severity Reaction Status Date / Time No Known Allergies Allergy Verified 04/11/22 11:30 Objective - Vital Signs Vital signs: Vital Signs Temp 97.9 F 11/08/22 15:07 Pulse 78 11/08/22 15:07 Resp 17 11/08/22 15:07 BP 107/71 11/08/22 15:07 Pulse Ox 98 11/08/22 15:07 FiO2 Intake & Output 11/07/22 11/08/22 11/08/22 18:59 06:59 18:59 Weight 66.678 kg - Constitutional General appearance: Present: cooperative - EENT Eyes: Present: EOMI ENT: Present: hearing grossly normal - Neck Neck: Present: normal ROM - Respiratory Details: left base lung ronchi at base Respiratory: bilateral: CTA - Cardiovascular Heart sounds: normal: S1, S2 - Integumentary Integumentary: Present: normal turgor - Musculoskeletal Musculoskeletal: Present: gait normal - Psychiatric Psychiatric: Present: A&O x's 3, appropriate affect, intact judgment & insight - Additional findings Additional findings: Breast Exam: BRA: 32B Inspection: Bilateral grade 2 ptosis Palpation: Right breast: chest wall is well-healed with no evidence of recurrent cancer Right axilla: No adenopathy of concern Left breast: Multi-positional exam fibrocystic changes no dominant masses or nodules of concern Left axilla: No adenopathy of concern Assessment and Plan Assessment: Impression: Patient is doing well at this time status post right breast mastectomy for a triple negative stage IB invasive ductal carcinoma. Patient has seen medical oncology and is going to undergo chemotherapy Patient had a port placed recently by Dr. Campos Patient with high white blood cell count is been evaluated by medical oncology Recent metastatic workup negative Plan: Follow up in 4 months for close surveillance Follow-up with medical oncology Patient has declined an appointment with radiation oncology Of concern in the computed tomography scan of the chest revealed a 9 mm lymph node which will be closely followed CC: Dr. Mallory
== END ==
LOC: WWCWWP 14:57
PROVIDERS: ATTEND Surgery
DX: C50.911 Malignant neoplasm of unspecified site of right female breast (principal); D72.829 Elevated white blood cell count, unspecified; E03.9 Hypothyroidism, unspecified; F17.210 Nicotine dependence, cigarettes, uncomplicated; G25.81 Restless legs syndrome; G89.29 Other chronic pain; I25.10 Atherosclerotic heart disease of native coronary artery without angina pectoris; I25.2 Old myocardial infarction; Z17.1 Estrogen receptor negative status [ER-]; Z80.3 Family history of malignant neoplasm of breast; Z87.440 Personal history of urinary (tract) infections; Z90.11 Acquired absence of right breast and nipple; Z88.5 Allergy status to narcotic agent

== ENCOUNTER 2022-11-10 11:09 | Emergency (ER) | payer OTHER ==
[2022-11-10 11:20] VITALS: BP 132/61; PULSE 78; RESP 18; TEMP 98.1
[2022-11-10] MEDS ORDERED: PROPARACAINE 0.5% OPHTH DROPS 15 ML BTL LEFT EYE STA (11:52)
[2022-11-10] MEDS ORDERED: FLUORESCEIN STRIPS 1 MG STRIP LEFT EYE ONE (11:52)
[2022-11-10] MEDS ORDERED: fentaNYL (PF) 50 MCG/ML 2 ML AMP IVP STA (11:56)
--- NOTE | 2022-11-10 12:00 | ED ---
Skin/Abscess/FB HPI - General Chief complaint: Skin/Abscess/Foreign Body Stated complaint: chemo port painful Time Seen by Provider: 11/10/22 11:43 Source: patient, RN notes reviewed, old records reviewed Mode of arrival: ambulatory Limitations: no limitations - History of Present Illness Initial comments: This is a 62-year-old female, alert and oriented 4 that presents to the emergency room with multiple complaints. Patient states that she had a left sided Mediport placed on Friday with Dr Campos in preparation for chemo for breast cancer. States that she attempted multiple times before procedure was complete. Patient is now having pain to the left chest wall that radiates with a burning sensation down her left arm. She also states that she has left eye irritation with tearing and does wear contact lenses. She denies any fevers. No nausea vomiting diarrhea or difficulty in breathing. MD complaint: other (pain at mediport site) -: days(s) (3) Location: chest (left chest wall) Severity scale (1-10): 10 Quality: burning Consistency: constant Improves with: none Worsens with: palpation Context: other (mediport Placement on Friday) Treatments Prior to Arrival: none - Related Data Home Medications Medication Instructions Recorded Confirmed Gabapentin 800 mg PO TID 02/05/22 11/08/22 traZODone HCL [Desyrel] 100 mg PO HS PRN 02/05/22 11/08/22 busPIRone HCl [Buspar] 10 mg PO TID PRN 04/11/22 11/08/22 Levothyroxine Sodium [Synthroid] 75 mcg PO DAILY 06/13/22 11/08/22 Divalproex ER [Depakote ER] 250 mg PO BID 06/18/22 11/08/22 Ibuprofen [Motrin Ib] 200 mg PO DIRECTED PRN 06/28/22 11/08/22 Previous Rx's Medication Instructions Recorded Naloxone HCl [Narcan] 4 mg NASAL ONCE PRN 180 Days #1 08/29/22 each HYDROmorphone [Dilaudid] 2 mg PO Q4-6H PRN 3 Days #15 tab 11/04/22 oxyCODONE HCL/ACETAMINOPHEN 1 each PO BID PRN 30 Days #60 tab 11/04/22 [Percocet 10-325 mg] oxyCODONE HCL/ACETAMINOPHEN 1 tab PO Q12HR PRN 30 Days #60 tab 11/04/22 [Percocet 10-325 mg] Ciprofloxacin Ophth Soln [Cipro 2 drops LEFT EYE Q4HR 5 Days #5 ml 11/10/22 0.3% Ophth Soln] traMADol HCl [Ultram] 50 mg PO Q6H PRN #20 tab 11/10/22 Allergies Allergy/AdvReac Type Severity Reaction Status Date / Time morphine Allergy Rash/Hives Verified 11/10/22 11:20 ciprofloxacin [From Cipro] AdvReac Rash/Hives Verified 11/10/22 11:20 codeine AdvReac Vomiting Verified 11/10/22 11:20 Review of Systems ROS Statement: Those systems with pertinent positive or pertinent negative responses have been documented in the HPI. ROS Other: All systems not noted in ROS Statement are negative. Past Medical History Past Medical History: Coronary Artery Disease (CAD), Cancer, Myocardial Infarction (NE), Thyroid Disorder Additional Past Medical History / Comment(s): Pt recently admitted to [facility] on 02/05/22 with AMS/visual and auditory hallucinations, possible UTI and left AMA. Other hx: Chronic low back pain, UTIs, hypothyroid, 5 miscarriages. Breast cancer Last Myocardial Infarction Date:: 2009 History of Any Multi-Drug Resistant Organisms: None Reported Past Surgical History: Back Surgery, Breast Surgery, Heart Catheterization With Stent, Tubal Ligation Additional Past Surgical History / Comment(s): 3 back surgeries with hardware, D&C., lymph node removal Past Anesthesia/Blood Transfusion Reactions: No Reported Reaction Date of Last Stent Placement:: 2009 at [facility] Past Psychological History: Anxiety, Bipolar, Depression Smoking Status: Former smoker Past Alcohol Use History: None Reported Past Drug Use History: None Reported - Past Family History Father History Unknown: Yes Additional Family Medical History / Comment(s): Father left family when pt was an infant. Mother History Unknown: Yes Additional Family Medical History / Comment(s): Mother when pt was a . General Exam Limitations: no limitations General appearance: alert, in no apparent distress Head exam: Present: atraumatic Eye exam: Present: PERRL, EOMI, conjunctival injection (Left, with tearing). Absent: scleral icterus, nystagmus, periorbital swelling, periorbital tenderness ENT exam: Present: mucous membranes moist Neck exam: Present: full ROM. Absent: tenderness, meningismus Respiratory exam: Present: normal lung sounds bilaterally. Absent: respiratory distress, accessory muscle use Cardiovascular Exam: Present: regular rate GI/Abdominal exam: Present: soft. Absent: tenderness Extremities exam: Present: normal capillary refill Neurological exam: Present: alert, oriented X3 Psychiatric exam: Present: normal affect, normal mood Skin exam: Present: warm, dry, normal color, other (2 surgical sites left chest wall with surrounding yellow-green ecchymosis. No erythema or induration. No drainage. Surgical sites with dry Steri-Strips.). Absent: petechiae, pallor Course Vital Signs 11/10/22 11:16 Temperature 98.1 F Pulse Rate 78 Respiratory 18 Rate Blood Pressure 132/61 O2 Sat by Pulse 98 Oximetry Medical Decision Making - Medical Decision Making Was pt. sent in by a medical professional or institution (, PA, FISHERY DIVISION CHIEF, urgent care, hospital, or alf...) When possible be specific @ -No Did you speak to anyone other than the patient for history (EMS, parent, family, police, friend...)? What history was obtained from this source @ -No Did you review nursing and triage notes (agree or disagree)? Why? @ -I reviewed and agree with nursing and triage notes Were old charts reviewed (outside hosp., previous admission, EMS record, old EKG, old radiological studies, urgent care reports/EKG's, alf records)? Report findings @ -Previous records from Dr. Reynolds November 08 Differential Diagnosis (chest pain, altered mental status, abdominal pain women, abdominal pain men, vaginal bleeding, weakness, fever, dyspnea, syncope, headache, dizziness, GI bleed, back pain, seizure, CVA, palpatations, mental health, musculoskeletal)? @ -Cellulitis, abscess, hematoma, pneumothorax, pneumonia, DVT, radiculopathy EKG interpreted by me (3pts min.). @ -n/a X-rays interpreted by me (1pt min.). @ -yes Chest x-ray interpreted by me shows Mediport left chest wall. No evidence of pneumothorax. Trachea is midline. No free air. No focal consolidation. CT interpreted by me (1pt min.). @ -None done U/S interpreted by me (1pt. min.). @ -no What testing was considered but not performed or refused? (CT, X-rays, U/S, labs)? Why? @ -None What meds were considered but not given or refused? Why? @ -None Did you discuss the management of the patient with other professionals (professionals i.e. , PA, FISHERY DIVISION CHIEF, lab, RT, psych nurse, social worker psychiatric, manager disaster recovery, teacher, driver license reviewing officer, home health care case manager)? Give summary @ -No Was smoking cessation discussed for >3mins.? @ -No Was critical care preformed (if so, how long)? @ -No Were there social determinants of health that impacted care today? How? (Homelessness, low income, unemployed, alcoholism, drug addiction, transportation, low edu. Level, literacy, decrease access to med. care, custodial, rehab)? @ -No Was there de-escalation of care discussed even if they declined (Discuss DNR or withdrawal of care, Hospice)? DNR status @ -No What co-morbidities impacted this encounter? (DM, HTN, Smoking, COPD, CAD, Cancer, CVA, ARF, Chemo, Hep., AIDS, mental health diagnosis, sleep apnea, m orbid obesity)? @ -Breast cancer, coronary artery disease, NE, anxiety, bipolar, depression Was patient admitted / discharged? Hospital course, mention meds given and route, prescriptions, significant lab abnormalities, going to OR and other pertinent info. @ -Discharged This is a 62-year-old female, alert and oriented 4 that presents to the emergency room with multiple complaints. Patient states that she had a left sided Mediport placed on Friday with Dr Campos in preparation for chemo for breast cancer. States that she attempted multiple times before procedure was complete. Patient is now having pain to the left chest wall that radiates with a burning sensation down her left arm. She also states that she has left eye irritation with tearing and does wear contact lenses. She denies any fevers. No nausea vomiting diarrhea or difficulty in breathing. According to medical records, patient was seen by Dr. Reynolds call on November 08. Right breast invasive ductal carcinoma. Patient underwent a right breast mastectomy on 06/04/2022. Seen Dr. Rodríguez and referred to pain management. On physical exam there is no evidence of abscess, erythema or drainage. Steri- Strips to both incisional sites are dry and intact. CBC and electrolytes are unremarkable. Chest x-ray interpreted by me shows Mediport left chest wall. No evidence of pneumothorax. Trachea is midline. No free air. No focal consolidation. Radiologist interpretation [id number] projecting over the left hemithorax with distal tip at the brachial cephalic vein near the superior vena cava confluence. Fluorescein stain of the left eye revealed a corneal abrasion at 3:00. Patient is a contact lens wearer therefore she will be placed on ciprofloxacin 0.3% 2 drops 4 times a day and referred to ENT. Patient was initially given fentanyl for pain states no relief. Requesting additional pain medication. States that she does take Dilaudid at home. Patient states that she has no ALLERGIES to any medications and does not know why these are listed in her ALLERGY list. Patient was given a dose of Dilaudid. Ultrasound left arm to rule out DVT is negative. Radial pulses present, with no swelling, pink warm and dry. Patient states that she continues to have pain and would like an additional dose of Dilaudid before being discharged. She is also asking for a prescription for Dilaudid home for her breakthrough pain. She states that she does have a pain contract with Krystin here at the hospital and was prescribed Dilaudid for breakthrough pain however she is out and due to the holiday she cannot get refills. She is agreeable to taking a prescription for tramadol for 3 days until she can get in to see her doctor as scheduled next week. She is scheduled to see the surgeon at [facility] on when she is planned to start chemotherapy. I did explain to the patient that obtaining a prescription for pain medication while in a pain contract may void this contract. Patient states she is unable to reach her doctor for more pain medication due to the holiday weekend and will address this with her doctor. She is agreeable to receiving the prescription. Patient was offered Narcan states that she has 2 at home and has never had to use it. States is going to pick her up from the hospital she does not drive when taking it narcotics. Patient was directed to follow with her pain management doctor next week, in addition to following up with her surgeon Dr. Campos. Also encouraged her to keep her appointment on with [facility] for continuation of care and chemotherapy. Case discussed with Dr. Jones Undiagnosed new problem with uncertain prognosis? @ -No Drug Therapy requiring intensive monitoring for toxicity (Heparin, Nitro, Insulin, Cardizem)? @ -No Were any procedures done? @ -No Diagnosis/symptom? @ -Postop chest wall pain, corneal abrasion left Acute, or Chronic, or Acute on Chronic? @ -Acute Uncomplicated (without systemic symptoms) or Complicated (systemic symptoms)? @ -Uncomplicated Side effects of treatment? @ -No Exacerbation, Progression, or Severe Exacerbation? @ -No Poses a threat to life or bodily function? How? (Chest pain, USA, NE, pneumonia, PE, COPD, DKA, ARF, appy, cholecystitis, CVA, Diverticulitis, Homicidal, Suicidal, threat to staff... and all critical care pts) @ -No - Lab Data Result diagrams: 11/10/22 11:58 11/10/22 11:58 Lab Results 11/10/22 11/10/22 Range/Units 11:58 11:58 WBC 10.0 (3.8-10.6) k/uL RBC 4.35 (3.80-5.40) m/uL Hgb 13.3 (11.4-16.0) gm/dL Hct 40.6 (34.0-46.0) % MCV 93.4 (80.0-100.0) fL MCH 30.5 (25.0-35.0) pg MCHC 32.7 (31.0-37.0) g/dL RDW 14.2 (11.5-15.5) % Plt Count 512 H (150-450) k/uL MPV 7.7 Neutrophils % 69 % Lymphocytes % 22 % Monocytes % 6 % Eosinophils % 2 % Basophils % 0 % Neutrophils # 6.9 (1.3-7.7) k/uL Lymphocytes # 2.2 (1.0-4.8) k/uL Monocytes # 0.6 (0-1.0) k/uL Eosinophils # 0.2 (0-0.7) k/uL Basophils # 0.0 (0-0.2) k/uL Sodium 140 (137-145) mmol/L Potassium 4.6 (3.5-5.1) mmol/L Chloride 106 (98-107) mmol/L Carbon Dioxide 25 (22-30) mmol/L Anion Gap 9 mmol/L BUN 19 H (7-17) mg/dL Creatinine 0.63 (0.52-1.04) mg/dL Est GFR (CKD-EPI)AfAm >90 (>60 ml/min/1.73 sqM) Est GFR (CKD-EPI)NonAf >90 (>60 ml/min/1.73 sqM) Glucose 94 (74-99) mg/dL Calcium 9.0 (8.4-10.2) mg/dL Total Bilirubin 0.3 (0.2-1.3) mg/dL AST 18 (14-36) U/L ALT 12 (4-34) U/L Alkaline Phosphatase 78 (38-126) U/L Total Protein 6.7 (6.3-8.2) g/dL Albumin 4.0 (3.5-5.0) g/dL Disposition Clinical Impression: Corneal abrasion, left, Left-sided chest wall pain, Post-op pain Narrative: left chest wall post op mediport placement site pain Disposition: HOME SELF-CARE Condition: Good Instructions (If sedation given, give patient instructions): Corneal Abrasion (ED), Chest Wall Pain (ED) Additional Instructions: Use antibiotic eyedrops and follow up with Dr. Boswell ophthalmology on Friday. Contact you surgeon regarding evaluation of your incision sites. Return to the emergency room with any new or concerning symptoms including increased pain, swelling or fevers. Continue your previously prescribed medi cations for pain. Prescriptions: Ciprofloxacin Ophth Soln [Cipro 0.3% Ophth Soln] 2 drops LEFT EYE Q4HR 5 Days #5 ml traMADol HCl [Ultram] 50 mg PO Q6H PRN #20 tab PRN Reason: Pain Is patient prescribed a controlled substance at d/c from ED?: No Referrals: Delmy Boswell MD [STAFF PHYSICIAN] - 1-2 days Sameera Oscar MD [Primary Care Provider] - 1-2 days Lupe Campos DO [Doctor of Osteopathic Medicine] - 1-2 days Time of Disposition: 13:56
[2022-11-10 12:22] LABS: ALT 12 U/L (4-34); AST 18 U/L (14-36); African American GFR (CKD) >90 (>60 ml/min/1.73 sqM); Alkaline Phosphatase 78 U/L (38-126); Anion Gap 9 mmol/L; Blood Urea Nitrogen 19 mg/dL (7-17); Carbon Dioxide 25 mmol/L (22-30); Chloride 106 mmol/L (98-107); Glucose 94 mg/dL (74-99); Non-African American GFR(CKD) >90 (>60 ml/min/1.73 sqM); Potassium 4.6 mmol/L (3.5-5.1); Sodium 140 mmol/L (137-145); Total Bilirubin 0.3 mg/dL (0.2-1.3); Total Protein 6.7 g/dL (6.3-8.2)
--- NOTE | 2022-11-10 12:28 | XR ---
EXAMINATION TYPE: XR chest 2V DATE OF EXAM: 11/10/2022 12:15 PM COMPARISON: Chest radiographs from 02/09/2022 TECHNIQUE: XR chest 2V Frontal and lateral views of the chest. CLINICAL INDICATION:Female, 62 years old with history of post op mediport pain; FINDINGS: Lungs/Pleura: There is no evidence of pleural effusion, focal consolidation, or pneumothorax. Pulmonary vascularity: Unremarkable. Heart/mediastinum: Cardiomediastinal silhouette is unremarkable. Musculoskeletal: No acute osseous pathology. Other findings: None Lines/Tubes: [id number] projecting over the left hemithorax with distal tip at the brachiocephalic vein near th e superior vena cava confluence. IMPRESSION: [id number] projecting over the left hemithorax with distal tip at the brachiocephalic vein near th e superior vena cava confluence.
[2022-11-10 12:37] LABS: Basophils % (A) 0 %; Eosinophils # (A) 0.2 k/uL (0-0.7); Eosinophils % (A) 2 %; HCT 40.6 % (34.0-46.0); HGB 13.3 gm/dL (11.4-16.0); Lymphocytes # (A) 2.2 k/uL (1.0-4.8); Lymphocytes % (A) 22 %; MCH 30.5 pg (25.0-35.0); MCHC 32.7 g/dL (31.0-37.0); MCV 93.4 fL (80.0-100.0); Mean Platelet Volume 7.7; Monocytes # (A) 0.6 k/uL (0-1.0); Monocytes % (A) 6 %; Neutrophils # (A) 6.9 k/uL (1.3-7.7); Neutrophils % (A) 69 %; Platelet Count 512 k/uL (150-450); RBC 4.35 m/uL (3.80-5.40); RDW 14.2 % (11.5-15.5)
[2022-11-10] MEDS ORDERED: HYDROmorphone 0.5 MG/0.5 ML SYRINGE IVP STA ×2 (13:05→14:02)
--- NOTE | 2022-11-10 13:38 | US ---
EXAMINATION TYPE: US venous doppler duplex UE LT DATE OF EXAM: 11/10/2022 COMPARISON: NONE CLINICAL INDICATION: Female, 62 years old with history of post op mediport pain; Pain and lump near p ort on left side. SIDE PERFORMED: Left Left Arm: Negative for DVT, Grayscale, color doppler, spectral doppler imaging performed of the deep veins of the upper extremities. There is normal flow, compressibility and vascular waveforms. A hypoechoic area near incision by left arm pit measuring 1.7 x 1.3 cm. IMPRESSION: 1. No evidence for deep vein thrombosis. 2. Anechoic/hypoechoic fluid collection near incision site likely representing resolving hematoma/se trixie.
== END 2022-11-10 14:08 | disposition home or self-care (01) ==
LOC: EC 11:09
DX: S05.02XA Injury of conjunctiva and corneal abrasion without foreign body, left eye, initial encounter (principal); R07.89 Other chest pain; G89.18 Other acute postprocedural pain; I25.10 Atherosclerotic heart disease of native coronary artery without angina pectoris; E07.9 Disorder of thyroid, unspecified; F41.9 Anxiety disorder, unspecified; F31.9 Bipolar disorder, unspecified; I25.2 Old myocardial infarction; Z87.891 Personal history of nicotine dependence; Z79.890 Hormone replacement therapy; Z79.899 Other long term (current) drug therapy; Z88.5 Allergy status to narcotic agent; Z88.6 Allergy status to analgesic agent; X58.XXXA Exposure to other specified factors, initial encounter
CPT/HCPCS: 36415; 80053; 85025; 71046; 93971; 99285; 96374; 96375; 96376; J3010; J1170

== ENCOUNTER 2022-11-11 12:09 | Emergency (ER) | payer OTHER ==
[2022-11-11 12:16] VITALS: TEMP 97.8
--- NOTE | 2022-11-11 14:02 | ED ---
General Adult HPI - General Chief complaint: Recheck/Abnormal Lab/Rx Stated complaint: Shoulder pain Time Seen by Provider: 11/11/22 12:58 Source: patient, RN notes reviewed Mode of arrival: ambulatory Limitations: no limitations - History of Present Illness Initial comments: 62-year-old female presents emergency department chief complaint of pain at the site of her port that was placed about a week and half ago. Patient states that there was attempted placement more laterally and was told that the area is too small so the port was placed more medially and she is having pain in the area. She states that she had an ultrasound and x-ray done yesterday and was given Dilaudid for pain. Patient states that she has a pain contract [facility]. She states she takes Percocets for daily pain management and she was given by mouth Dilaudid for breakthrough pain. she was given fentanyl and Dilaudid yesterday which she states that with her pain. She was given a prescription for tramadol and she was here yesterday but states that is not doing anything for her pain. She states that she has an appointment with oncology in [place] on . - Related Data Home Medications Medication Instructions Recorded Confirmed Gabapentin 800 mg PO TID 02/05/22 11/08/22 traZODone HCL [Desyrel] 100 mg PO HS PRN 02/05/22 11/08/22 busPIRone HCl [Buspar] 10 mg PO TID PRN 04/11/22 11/08/22 Levothyroxine Sodium [Synthroid] 75 mcg PO DAILY 06/13/22 11/08/22 Divalproex ER [Depakote ER] 250 mg PO BID 06/18/22 11/08/22 Ibuprofen [Motrin Ib] 200 mg PO DIRECTED PRN 06/28/22 11/08/22 Previous Rx's Medication Instructions Recorded Naloxone HCl [Narcan] 4 mg NASAL ONCE PRN 180 Days #1 08/29/22 each HYDROmorphone [Dilaudid] 2 mg PO Q4-6H PRN 3 Days #15 tab 11/04/22 oxyCODONE HCL/ACETAMINOPHEN 1 each PO BID PRN 30 Days #60 tab 11/04/22 [Percocet 10-325 mg] oxyCODONE HCL/ACETAMINOPHEN 1 tab PO Q12HR PRN 30 Days #60 tab 11/04/22 [Percocet 10-325 mg] Ciprofloxacin Ophth Soln [Cipro 2 drops LEFT EYE Q4HR 5 Days #5 ml 11/10/22 0.3% Ophth Soln] traMADol HCl [Ultram] 50 mg PO Q6H PRN #20 tab 11/10/22 Allergies Allergy/AdvReac Type Severity Reaction Status Date / Time codeine AdvReac Vomiting Verified 11/10/22 11:20 Review of Systems ROS Statement: Those systems with pertinent positive or pertinent negative responses have been documented in the HPI. ROS Other: All systems not noted in ROS Statement are negative. Past Medical History Past Medical History: Coronary Artery Disease (CAD), Cancer, Myocardial Infarction ([place]), Thyroid Disorder Additional Past Medical History / Comment(s): Pt recently admitted to [facility] on 02/05/22 with AMS/visual and auditory hallucinations, possible UTI and left AMA. Other hx: Chronic low back pain, UTIs, hypothyroid, 5 miscarriages. Breast cancer Last Myocardial Infarction Date:: 2009 History of Any Multi-Drug Resistant Organisms: None Reported Past Surgical History: Back Surgery, Breast Surgery, Heart Catheterization With Stent, Tubal Ligation Additional Past Surgical History / Comment(s): 3 back surgeries with hardware, D&C., lymph node removal Past Anesthesia/Blood Transfusion Reactions: No Reported Reaction Date of Last Stent Placement:: 2009 at [facility] Past Psychological History: Anxiety, Bipolar, Depression Smoking Status: Former smoker Past Alcohol Use History: None Reported Past Drug Use History: None Reported - Past Family History Father History Unknown: Yes Additional Family Medical History / Comment(s): Father left family when pt was an infant. Mother History Unknown: Yes Additional Family Medical History / Comment(s): Mother when pt was a . General Exam Limitations: no limitations General appearance: alert, in no apparent distress Head exam: Present: atraumatic, normocephalic, normal inspection Eye exam: Present: normal appearance ENT exam: Present: normal exam, mucous membranes moist Neck exam: Present: normal inspection. Absent: tenderness, meningismus, lymphadenopathy Respiratory exam: Present: normal lung sounds bilaterally. Absent: respiratory distress, wheezes, rales, rhonchi, stridor Cardiovascular Exam: Present: regular rate, normal rhythm, normal heart sounds. Absent: systolic murmur, diastolic murmur, rubs, gallop, clicks GI/Abdominal exam: Present: soft, normal bowel sounds. Absent: distended, tenderness, guarding, rebound, rigid Extremities exam: Present: normal inspection, full ROM, normal capillary refill. Absent: tenderness, pedal edema, joint swelling, calf tenderness Back exam: Present: normal inspection Neurological exam: Present: alert, oriented X3 Psychiatric exam: Present: normal affect, normal mood Skin exam: Present: warm, dry, normal color, other (Incisions were closed place are nonerythematous and appear to be healing well patient has pain over the [place] area) Course Vital Signs 11/11/22 11/11/22 12:14 14:38 Temperature 97.8 F Pulse Rate 73 74 Respiratory 16 18 Rate Blood Pressure 133/86 145/70 O2 Sat by Pulse 97 99 Oximetry Medical Decision Making - Medical Decision Making Was pt. sent in by a medical professional or institution (, PA, STEREO EQUIPMENT INSTALLER, urgent care, hospital, or fci...) When possible be specific @ -No Did you speak to anyone other than the patient for history (EMS, parent, family, police, friend...)? What history was obtained from this source @ -No Did you review nursing and triage notes (agree or disagree)? Why? @ -I reviewed and agree with nursing and triage notes Were old charts reviewed (outside hosp., previous admission, EMS record, old EKG, old radiological studies, urgent care reports/EKG's, fci records)? Report findings @ -No old charts were reviewed Differential Diagnosis (chest pain, altered mental status, abdominal pain women, abdominal pain men, vaginal bleeding, weakness, fever, dyspnea, syncope, headache, dizziness, GI bleed, back pain, seizure, CVA, palpatations, mental health, musculoskeletal)? @ -not applicable EKG interpreted by me (3pts min.). @ -None X-rays interpreted by me (1pt min.). @ -None done CT interpreted by me (1pt min.). @ -None done U/S interpreted by me (1pt. min.). @ -None done What testing was considered but not performed or refused? (CT, X-rays, U/S, labs)? Why? @ -X-ray was ordered to a few port placement but patient refused any imaging What meds were considered but not given or refused? Why? @ -None Did you discuss the management of the patient with other professionals (professionals i.e. , PA, STEREO EQUIPMENT INSTALLER, lab, RT, psych nurse, geriatric social worker, attorney lawyer, teacher, youth liaison officer, dependency case manager)? Give summary @ -No Was smoking cessation discussed for >3mins.? @ -No Was critical care preformed (if so, how long)? @ -No Were there social determinants of health that impacted care today? How? (Homelessness, low income, unemployed, alcoholism, drug addiction, transportation, low edu. Level, literacy, decrease access to med. care, group home, rehab)? @ -No Was there de-escalation of care discussed even if they declined (Discuss DNR or withdrawal of care, Hospice)? DNR status @ -No What co-morbidities impacted this encounter? (DM, HTN, Smoking, COPD, CAD, Cancer, CVA, ARF, Chemo, Hep., AIDS, mental health diagnosis, sleep apnea, morbid obesity)? @ -None Was patient admitted / discharged? Hospital course, mention meds given and route, prescriptions, significant lab abnormalities, going to OR and other pertinent info. @ -Discharged. Patient presented to emergency department for chief complaint of increased pain over port site. Patient was seen in the emergency department yesterday for this same thing an ultrasound and chest x-ray were performed yesterday. A chest x-ray was ordered today but the patient refused the imaging. Patient was requesting pain medication she was given a dose of Dilaudid and advised that if the swelling to her pain contract that is her responsibility. Patient advised to follow-up with her care team for further pain management. Patient discharged in stable condition. Undiagnosed new problem with uncertain prognosis? @ -[o] Drug Therapy requiring intensive monitoring for toxicity (Heparin, Nitro, Insulin, Cardizem)? @ -[o] Were any procedures done? @ -[o] Diagnosis/symptom? @ Port pain ] Acute, or Chronic, or Acute on Chronic? @ Acutet] Uncomplicated (without systemic symptoms) or Complicated (systemic symptoms)? @ Uncomplicatedt] Side effects of treatment? @ -[o] Exacerbation, Progression, or Severe Exacerbation? @ -[o] Poses a threat to life or bodily function? How? (Chest pain, [place], [place], pneumonia, PE, COPD, DKA, ARF, appy, cholecystitis, CVA, Diverticulitis, Homicidal, Suicidal, threat to staff... and all critical care pts) @ -[o] Disposition Clinical Impression: Post-op pain Disposition: HOME SELF-CARE Condition: Stable Additional Instructions: Please return to emergency department for new or worsening symptoms Is patient prescribed a controlled substance at d/c from ED?: No Referrals: None,Stated [Primary Care Provider] - 1-2 days Time of Disposition: 14:33
[2022-11-11] MEDS ORDERED: HYDROmorphone 1 MG/ML 1 ML SYRINGE IM STA (14:12)
[2022-11-11 14:39] VITALS: BP 145/70; PULSE 74; RESP 18
== END 2022-11-11 14:41 | disposition home or self-care (01) ==
LOC: EC 12:09
DX: G89.18 Other acute postprocedural pain (principal); I25.10 Atherosclerotic heart disease of native coronary artery without angina pectoris; I25.2 Old myocardial infarction; E07.9 Disorder of thyroid, unspecified; F41.9 Anxiety disorder, unspecified; F31.9 Bipolar disorder, unspecified; Z87.891 Personal history of nicotine dependence; Z79.890 Hormone replacement therapy; Z79.899 Other long term (current) drug therapy; Z88.5 Allergy status to narcotic agent
CPT/HCPCS: 99283; 96372; J1170

== ENCOUNTER 2022-11-12 12:32 | Emergency (ER) | payer OTHER ==
[2022-11-12 13:20] VITALS: RESP 18
[2022-11-12] MEDS ORDERED: HYDROmorphone 1 MG/ML 1 ML SYRINGE IM STA (13:20)
--- NOTE | 2022-11-12 13:21 | ED ---
General Adult HPI - General Chief complaint: Recheck/Abnormal Lab/Rx Stated complaint: post op Time Seen by Provider: 11/12/22 13:20 Source: patient, RN notes reviewed Mode of arrival: ambulatory Limitations: no limitations - History of Present Illness Initial comments: 62-year-old female presents emergency Department from Dr. Qureshi's office for pain control. Patient has a hematoma from just work that was placed. Patient was given additional pain meds from her pain management physician but due to the holiday has been closed and she's been out of her pain meds. Patient sent here for pain control she denies any other complaints she states that she does not need any evaluation of her chest poor and she was recently seen here yesterday had an ultrasound and saw surgeon who stated that everything was normal. - Related Data Home Medications Medication Instructions Recorded Confirmed Gabapentin 800 mg PO TID 02/05/22 11/08/22 traZODone HCL [Desyrel] 100 mg PO HS PRN 02/05/22 11/08/22 busPIRone HCl [Buspar] 10 mg PO TID PRN 04/11/22 11/08/22 Levothyroxine Sodium [Synthroid] 75 mcg PO DAILY 06/13/22 11/08/22 Divalproex ER [Depakote ER] 250 mg PO BID 06/18/22 11/08/22 Ibuprofen [Motrin Ib] 200 mg PO DIRECTED PRN 06/28/22 11/08/22 Previous Rx's Medication Instructions Recorded Naloxone HCl [Narcan] 4 mg NASAL ONCE PRN 180 Days #1 08/29/22 each HYDROmorphone [Dilaudid] 2 mg PO Q4-6H PRN 3 Days #15 tab 11/04/22 oxyCODONE HCL/ACETAMINOPHEN 1 each PO BID PRN 30 Days #60 tab 11/04/22 [Percocet 10-325 mg] oxyCODONE HCL/ACETAMINOPHEN 1 tab PO Q12HR PRN 30 Days #60 tab 11/04/22 [Percocet 10-325 mg] Ciprofloxacin Ophth Soln [Cipro 2 drops LEFT EYE Q4HR 5 Days #5 ml 11/10/22 0.3% Ophth Soln] traMADol HCl [Ultram] 50 mg PO Q6H PRN #20 tab 11/10/22 Review of Systems ROS Statement: Those systems with pertinent positive or pertinent negative responses have been documented in the HPI. ROS Other: All systems not noted in ROS Statement are negative. Past Medical History Past Medical History: Coronary Artery Disease (CAD), Cancer, Myocardial Infarction ([place]), Thyroid Disorder Additional Past Medical History / Comment(s): Pt recently admitted to [facility] on 02/05/22 with AMS/visual and auditory hallucinations, possible UTI and left AMA. Other hx: Chronic low back pain, UTIs, hypothyroid, 5 miscarriages. Breast cancer Last Myocardial Infarction Date:: 2009 History of Any Multi-Drug Resistant Organisms: None Reported Past Surgical History: Back Surgery, Breast Surgery, Heart Catheterization With Stent, Tubal Ligation Additional Past Surgical History / Comment(s): 3 back surgeries with hardware, D&C., lymph node removal Past Anesthesia/Blood Transfusion Reactions: No Reported Reaction Date of Last Stent Placement:: 2009 at [facility] Past Psychological History: Anxiety, Bipolar, Depression Smoking Status: Former smoker Past Alcohol Use History: None Reported Past Drug Use History: None Reported - Past Family History Father History Unknown: Yes Additional Family Medical History / Comment(s): Father left family when pt was an . Mother History Unknown: Yes Additional Family Medical History / Comment(s): Mother when pt was a . General Exam Limitations: no limitations General appearance: alert, in no apparent distress Head exam: Present: atraumatic, normocephalic, normal inspection Respiratory exam: Present: normal lung sounds bilaterally, chest wall tenderness (Over the area port with swelling). Absent: respiratory distress, wheezes, rales, rhonchi, stridor Cardiovascular Exam: Present: regular rate, normal rhythm, normal heart sounds. Absent: systolic murmur, diastolic murmur, rubs, gallop, clicks Course Vital Signs 11/12/22 11/12/22 13:15 13:54 Temperature 98.5 F 98.0 F Pulse Rate 84 74 Respiratory 18 18 Rate Blood Pressure 161/96 147/78 O2 Sat by Pulse 99 98 Oximetry Medical Decision Making - Medical Decision Making Was pt. sent in by a medical professional or institution (, PA, INVESTIGATIONS CONSULTANT, urgent care, hospital, or retirement...) When possible be specific @ -Dr. Campos surgeon Did you speak to anyone other than the patient for history (EMS, parent, family, police, friend...)? What history was obtained from this source @ -No Did you review nursing and triage notes (agree or disagree)? Why? @ -I reviewed and agree with nursing and triage notes Were old charts reviewed (outside hosp., previous admission, EMS record, old EKG, old radiological studies, urgent care reports/EKG's, retirement records)? Report findings @ -Reviewed recent ER visits, ultrasound, laboratory studies Differential Diagnosis (chest pain, altered mental status, abdominal pain women, abdominal pain men, vaginal bleeding, weakness, fever, dyspnea, syncope, headache, dizziness, GI bleed, back pain, seizure, CVA, palpatations, mental health, musculoskeletal)? @ -Hematoma, chest wall pain, chronic pain EKG interpreted by me (3pts min.). @ -None X-rays interpreted by me (1pt min.). @ -None done CT interpreted by me (1pt min.). @ -None done U/S interpreted by me (1pt. min.). @ -None done What testing was considered but not performed or refused? (CT, X-rays, U/S, labs)? Why? @ -None What meds were considered but not given or refused? Why? @ -None Did you discuss the management of the patient with other professionals (professionals i.e. , PA, INVESTIGATIONS CONSULTANT, lab, RT, psych nurse, social media marketing manager, core dipper, teacher, audit officer, pillowcase folder)? Give summary @ -No Was smoking cessation discussed for >3mins.? @ -No Was critical care preformed (if so, how long)? @ -No Were there social determinants of health that impacted care today? How? (Homelessness, low income, unemployed, alcoholism, drug addiction, transportation, low edu. Level, literacy, decrease access to med. care, group home, rehab)? @ -No Was there de-escalation of care discussed even if they declined (Discuss DNR or withdrawal of care, Hospice)? DNR status @ -No What co-morbidities impacted this encounter? (DM, HTN, Smoking, COPD, CAD, Cancer, CVA, ARF, Chemo, Hep., AIDS, mental health diagnosis, sleep apnea, morbid obesity)? @ -Chronic pain Was patient admitted / discharged? Hospital course, mention meds given and route, prescriptions, significant lab abnormalities, going to OR and other pertinent info. @ -Discharge patient was provided pain relief patient is follow-up with pain management tomorrow morning return parameters were discussed. Patient does not want any further testing that she just saw her surgeon Undiagnosed new problem with uncertain prognosis? @ -No Drug Therapy requiring intensive monitoring for toxicity (Heparin, Nitro, Insulin, Cardizem)? @ -No Were any procedures done? @ -No Diagnosis/symptom? @ -Chest wall pain, port pain Acute, or Chronic, or Acute on Chronic? @ -Acute Uncomplicated (without systemic symptoms) or Complicated (systemic symptoms)? @ -Uncomplicated Side effects of treatment? @ -No Exacerbation, Progression, or Severe Exacerbation? @ -No Poses a threat to life or bodily function? How? (Chest pain, [place], [place], pneumonia, PE, COPD, DKA, ARF, appy, cholecystitis, CVA, Diverticulitis, Homicidal, Suicidal, threat to staff... and all critical care pts) @ -No Disposition Clinical Impression: Post-op pain, Chest wall pain Disposition: HOME SELF-CARE Condition: Stable Instructions (If sedation given, give patient instructions): Chest Pain (ED) Additional Instructions: Please return to the Emergency Department if symptoms worsen or any other concerns. Is patient prescribed a controlled substance at d/c from ED?: No Referrals: None,Stated [Primary Care Provider] - 1-2 days Time of Disposition: 13:21
[2022-11-12 13:55] VITALS: BP 147/78; PULSE 74; TEMP 98
== END 2022-11-12 13:56 | disposition home or self-care (01) ==
LOC: EC 12:32
DX: R07.89 Other chest pain (principal); G89.18 Other acute postprocedural pain; I25.10 Atherosclerotic heart disease of native coronary artery without angina pectoris; I25.2 Old myocardial infarction; E07.9 Disorder of thyroid, unspecified; F41.9 Anxiety disorder, unspecified; F31.9 Bipolar disorder, unspecified; Z79.890 Hormone replacement therapy; Z79.899 Other long term (current) drug therapy; Z87.891 Personal history of nicotine dependence
CPT/HCPCS: 99283; 96372; J1170

== ENCOUNTER 2022-12-03 16:25 | Emergency (ER) | payer OTHER ==
[2022-12-03 16:33] VITALS: RESP 18
[2022-12-03] MEDS ORDERED: KETOROLAC 15 MG/ML 1 ML VIAL IM STA (19:08)
--- NOTE | 2022-12-03 19:24 | ED ---
General Adult HPI - General Chief complaint: Recheck/Abnormal Lab/Rx Stated complaint: portal issues Time Seen by Provider: 12/03/22 18:20 Source: patient Mode of arrival: ambulatory Limitations: no limitations - History of Present Illness Initial comments: 62-year-old female with past medical history significant for breast cancer presents to the ED with the chief complaint of left chest wall pain. She states original site has had continued pain. Currently sees pain management and saw her surgeon today who did an ultrasound that showed no issues with her current port. Previously had an ultrasound at previous site that showed hematoma at prior site. Ultrasound today shows resolution of that hematoma. Patient states that she has another pain management appointment this Friday and reports that she is only here to get something to "bridge her further pain" until that appointment she notes her surgeon today did not give her any additional med ications. Denies any other symptoms. Denies shortness of breath. Patient notes that she has Narcan at home. No Other complaints. - Related Data Home Medications Medication Instructions Recorded Confirmed Gabapentin 800 mg PO TID 02/05/22 11/08/22 traZODone HCL [Desyrel] 100 mg PO HS PRN 02/05/22 11/08/22 busPIRone HCl [Buspar] 10 mg PO TID PRN 04/11/22 11/08/22 Levothyroxine Sodium [Synthroid] 75 mcg PO DAILY 06/13/22 11/08/22 Divalproex ER [Depakote ER] 250 mg PO BID 06/18/22 11/08/22 Ibuprofen [Motrin Ib] 200 mg PO DIRECTED PRN 06/28/22 11/08/22 Previous Rx's Medication Instructions Recorded Naloxone HCl [Narcan] 4 mg NASAL ONCE PRN 180 Days #1 08/29/22 each HYDROmorphone [Dilaudid] 2 mg PO Q4-6H PRN 3 Days #15 tab 11/04/22 oxyCODONE HCL/ACETAMINOPHEN 1 each PO BID PRN 30 Days #60 tab 11/04/22 [Percocet 10-325 mg] oxyCODONE HCL/ACETAMINOPHEN 1 tab PO Q12HR PRN 30 Days #60 tab 11/04/22 [Percocet 10-325 mg] Ciprofloxacin Ophth Soln [Cipro 2 drops LEFT EYE Q4HR 5 Days #5 ml 11/10/22 0.3% Ophth Soln] traMADol HCl [Ultram] 50 mg PO Q6H PRN #20 tab 11/10/22 Lidocaine 5% Patch [Lidoderm] 1 each TP Q24H 30 Days #30 patch 11/13/22 traMADol HCL 50 mg PO Q6H 4 Days #16 tab 12/03/22 Allergies Allergy/AdvReac Type Severity Reaction Status Date / Time No Known Allergies Allergy Verified 11/13/22 10:24 Review of Systems ROS Statement: Those systems with pertinent positive or pertinent negative responses have been documented in the HPI. ROS Other: All systems not noted in ROS Statement are negative. Past Medical History Past Medical History: Coronary Artery Disease (CAD), Cancer, Myocardial Infarction (NE), Thyroid Disorder Additional Past Medical History / Comment(s): Pt recently admitted to [facility] on 02/05/22 with AMS/visual and auditory hallucinations, possible UTI and left AMA. Other hx: Chronic low back pain, UTIs, hypothyroid, 5 miscarriages. Breast cancer Last Myocardial Infarction Date:: 2009 History of Any Multi-Drug Resistant Organisms: None Reported Past Surgical History: Back Surgery, Breast Surgery, Heart Catheterization With Stent, Tubal Ligation Additional Past Surgical History / Comment(s): 3 back surgeries with hardware, D&C., lymph node removal Past Anesthesia/Blood Transfusion Reactions: No Reported Reaction Date of Last Stent Placement:: 2009 at [facility] Past Psychological History: Anxiety, Bipolar, Depression Smoking Status: Former smoker Past Alcohol Use History: None Reported Past Drug Use History: None Reported - Past Family History Father History Unknown: Yes Additional Family Medical History / Comment(s): Father left family when pt was an infant. Mother History Unknown: Yes Additional Family Medical History / Comment(s): Mother when pt was a . General Exam Limitations: no limitations General appearance: alert, in no apparent distress Head exam: Present: atraumatic, normocephalic Eye exam: Present: normal appearance Respiratory exam: Present: normal lung sounds bilaterally, other (@Sites of reported pain reproducible tenderness to palpation at left chest wall near the axilla with no overlying warmth or erythema or edema.) Cardiovascular Exam: Present: regular rate, normal rhythm Neurological exam: Present: alert, oriented X3 Psychiatric exam: Present: normal affect, normal mood Skin exam: Present: warm, dry Course Vital Signs 12/03/22 16:28 Temperature 97.8 F Pulse Rate 81 Respiratory 18 Rate Blood Pressure 120/82 O2 Sat by Pulse 100 Oximetry Medical Decision Making - Medical Decision Making Was pt. sent in by a medical professional or institution ([facility] Emerson, [employer], urgent care, hospital, or jail...) When possible be specific @ -No Did you speak to anyone other than the patient for history (EMS, parent, family, police, friend...)? What history was obtained from this source @ -No Did you review nursing and triage notes (agree or disagree)? Why? @ -I reviewed and agree with nursing and triage notes Were old charts reviewed (outside hosp., previous admission, EMS record, old EKG, old radiological studies, urgent care reports/EKG's, jail records)? Report findings @ -Charts reviewed showing history of breast cancer with port placement for adjective chemotherapy. She reviewed showing overdose score of 640 recent prescription fill on 11/21/22 for Percocet 10-325 quantity of 60 Differential Diagnosis (chest pain, altered mental status, abdominal pain women, abdominal pain men, vaginal bleeding, weakness, fever, dyspnea, syncope, headache, dizziness, GI bleed, back pain, seizure, CVA, palpatations, mental health, musculoskeletal)? @ -not applicable EKG interpreted by me (3pts min.). @ -None X-rays interpreted by me (1pt min.). @ -None done CT interpreted by me (1pt min.). @ -None done U/S interpreted by me (1pt. min.). @ -None done What testing was considered but not performed or refused? (CT, X-rays, U/S, labs)? Why? @ -None What meds were considered but not given or refused? Why? @ -None Did you discuss the management of the patient with other professionals (professionals i.e. [facility]VAL[facility] Emerson, [employer] REPAIRMAN, lab, RT, psych nurse, mental health social worker, audiovisual equipment operator, teacher, general service officer, director case management)? Give summary @ -No Was smoking cessation discussed for >3mins.? @ -No Was critical care preformed (if so, how long)? @ -No Were there social determinants of health that impacted care today? How? (Homelessness, low income, unemployed, alcoholism, drug addiction, transportation, low edu. Level, literacy, decrease access to med. care, mcc, rehab)? @ -No Was there de-escalation of care discussed even if they declined (Discuss DNR or withdrawal of care, Hospice)? DNR status @ -No What co-morbidities impacted this encounter? (DM, HTN, Smoking, COPD, CAD, Cancer, CVA, ARF, Chemo, Hep., AIDS, mental health diagnosis, sleep apnea, morbid obesity)? @ -Breast cancer Was patient admitted / discharged? Hospital course, mention meds given and route, prescriptions, significant lab abnormalities, going to OR and other pertinent info. @ -Discharge. Patient provided Toradol in the ED. Extensive discussion with patient's regarding opiates and their proper use. She became agitated when I noted that she would not be receiving any Dilaudid in the ED. However, patient provided prescription for 16 tramadol. She does note that she has Narcan at home. Discussed signs and symptoms of overdose. Patient will be seeing pain management since Friday. Discharged in stable condition. Discussed return precautions patient verbalizes agreement. Undiagnosed new problem with uncertain prognosis? @ -No Drug Therapy requiring intensive monitoring for toxicity (Heparin, Nitro, Insulin, Cardizem)? @ -No Were any procedures done? @ -No Diagnosis/symptom? @ -Chest wall pain Acute, or Chronic, or Acute on Chronic? @ -Acute on chronic Uncomplicated (without systemic symptoms) or Complicated (systemic symptoms)? @ -default Side effects of treatment? @ -No Exacerbation, Progression, or Severe Exacerbation? @ -No Poses a threat to life or bodily function? How? (Chest pain, [place], NE, pneumonia, PE, COPD, DKA, ARF, appy, cholecystitis, CVA, Diverticulitis, Homicidal, Suicidal, threat to staff... and all critical care pts) @ -No Disposition Clinical Impression: Chest wall pain Disposition: HOME SELF-CARE Condition: Good Instructions (If sedation given, give patient instructions): Chest Wall Pain (ED) Additional Instructions: Please return to the Emergency Department if symptoms worsen or any other concerns. Prescriptions: traMADol HCL 50 mg PO Q6H 4 Days #16 tab Is patient prescribed a controlled substance at d/c from ED?: Yes When asked, does pt state using other controlled substances?: Yes If prescribed controlled substance>3 days was MAPS reviewed?: Yes (Overdose sco re of 640.) If opioid is for acute pain is fill amount 7 days or less?: Yes If Rx opioid, was Start Talking consent form obtained?: Yes Referrals: Dane Allen NPC [Primary Care Provider] - 1-2 days Time of Disposition: 19:00
[2022-12-03 19:39] VITALS: BP 122/77; PULSE 71; TEMP 98.3
== END 2022-12-03 19:39 | disposition home or self-care (01) ==
LOC: EC 16:25
DX: R07.89 Other chest pain (principal); I25.10 Atherosclerotic heart disease of native coronary artery without angina pectoris; I25.2 Old myocardial infarction; E07.9 Disorder of thyroid, unspecified; F31.9 Bipolar disorder, unspecified; F41.9 Anxiety disorder, unspecified; Z79.890 Hormone replacement therapy; Z79.899 Other long term (current) drug therapy; Z95.5 Presence of coronary angioplasty implant and graft
CPT/HCPCS: 99285; 96372; J1885